=== PATIENT | female | born 1945 | race Caucasian/White ===

== ENCOUNTER 2016-06-12 17:29 | Inpatient (IN) | payer MEDICARE, MEDICAID ==
[~2016-06-12] VITALS: Ht 157.5 cm; Wt 57.3 kg
[2016-06-12] VITALS (10 sets, daily range): BP systolic 101–126; BP diastolic 64–78; PULSE 91–122; RESP 16–30; TEMP 97.8; O2SAT 84–97
[~2016-06-12 17:29] MED LIST: ALBU6.7H INH; BENZ100 PO; DOLU1TAB PO; FURO1TAB60 PO; LAMI150 PO; LANTUS2P SQ; LIPI80TA PO; LISI-515 PO; LOMO2.5T PO; LORA-361 PO; PLAV75TA29 PO; RILP25 PO; SPIR25TA PO; TOPR50TA PO; XARE20TA PO
--- NOTE | 2016-06-12 17:51 | PD ---
HPI Chief Complaint: Respiratory Distress Time Seen by Provider: 17:51 Travel History International Travel<30 days: No Contact w/Intl Traveler<30days: No Traveled to known affect area: No History of Present Illness HPI 71-year-old female with a history of hypertension, hyperlipidemia, diabetes, asthma, CHF, pacemaker with AICD, HIV, DVT presents to the emergency department by EMS for evaluation of shortness of breath for one week. The patient states that the shortness of breath has significantly worsened in the past 3 days. States has had a productive cough with clear sputum for one week. States that she has had subjective fever and chills, has not taken her temperature. States she has chest tightness with her shortness of breath. States that she has been using her albuterol nebulizer which will improve her symptoms for a short period of time. The patient moved here from [place] last month and does not yet have a PCP. They did not bring her medications with them today. Denies any lightheadedness, dizziness, abdominal pain, nausea, vomiting, numbness or tingling, weakness. No other complaints. She is on HAART therapy but does not know her CD4 count. PFSH Past Medical History Asthma: Yes Autoimmune Disease: Yes (HIV) Blood Disorders: No Anxiety: No Depression: No Heart Rhythm Problems: No Cancer: No Cardiovascular Problems: Yes (HTN/WA) High Cholesterol: Yes Chemotherapy: No Chest Pain: No Congestive Heart Failure: Yes COPD: No Diabetes: Yes Diminished Hearing: No Deep Vein Thrombosis: Yes Endocrine: No Genitourinary: No Hypertension: Yes Immune Disorder: No Musculoskeletal: No Neurologic: No Psychiatric: No Reproductive: No Respiratory: Yes (ASTHMA) Radiation Therapy: No Sleep Apnea: No Thyroid Disease: No Menopausal: Yes Past Surgical History AICD: Yes Cardiac Surgery: Yes (PACEMAKER/AICD PLACEMENT) Cholecystectomy: Yes Eye Surgery: Yes Pacemaker: Yes Other Surgery: Yes (pacemaker with ICD) Social History Alcohol Use: No Tobacco Use: No Substance Use: No Allergies-Medications (Allergen,Severity, Reaction): Coded Allergies: No Known Allergies (Unverified , 06/12/16) Reported Meds & Prescriptions Reported Meds & Active Scripts Active Tessalon Perles (Benzonatate) 100 Mg Cap 100 Mg PO TID PRN Lomotil (Diphenoxylate-Atropine) 2.5-0.025 Mg Tab 1 Tab PO Q6H PRN Reported Xarelto (Rivaroxaban) 20 Mg Tab 20 Mg PO DAILY Edurant (Rilpivirine) 25 Mg Tab 25 Mg PO DAILY Toprol XL (Metoprolol Succinate) 50 Mg Tab 50 Mg PO DAILY Lisinopril 20 Mg Tab 20 Mg PO DAILY Epivir (Lamivudine) 150 Mg Tab 150 Mg PO DAILY *Fill this 5 day prescription first and begin taking Epivir 12 hours after the first dose received in the Emergency Department as prescribed.* Lantus Inj (Insulin Glargine) 1,000 Unit/10 Ml Vial 25 Units SQ HS Lasix (Furosemide) 40 Mg Tab 40 Mg PO DAILY Tivicay (Dolutegravir Sodium) 50 Mg Tab 50 Mg PO DAILY Plavix (Clopidogrel Bisulfate) 75 Mg Tab 75 Mg PO DAILY Lipitor (Atorvastatin Calcium) 80 Mg Tab 80 Mg PO HS Proventil Hfa 6.7 GM Inh (Albuterol Sulfate) 90 Mcg/Act Aer 2 Puff INH Q6H PRN Review of Systems Except as stated in HPI: all other systems reviewed are Neg Physical Exam Narrative GENERAL: Well-nourished and well-developed female patient in moderate respiratory distress. SKIN: Warm and dry. HEAD: Normocephalic and atraumatic. EYES: No injection, drainage, or hyphema noted. PERRLA. EOMI. ENT: No nasal drainage noted. Oropharynx is clear. NECK: Supple and the trachea is midline. CARDIOVASCULAR: Regular rate and rhythm. RESPIRATORY: Patient with moderate work of breathing. Decreased breath sounds throughout, mild wheeze. GASTROINTESTINAL: Abdomen is soft, non-tender, and nondistended. MUSCULOSKELETAL: Mild swelling of lower extremities bilaterally. No obvious deformities, cyanosis, or ecchymosis is present throughout the upper and lower extremities. Patient has full range of motion without any signs of neurovascular compromise. NEUROLOGICAL: Awake, alert, and oriented. Normal speech and gait. Cranial nerves are grossly intact. Data Data Last Documented VS Vital Signs Date Time Temp Pulse Resp B/P Pulse Ox O2 Delivery O2 Flow Rate FiO2 06/12/16 18:31 122 30 94 Nasal Cannula 4 06/12/16 18:29 126/78 06/12/16 17:40 97.8 Orders Complete Blood Count With Diff (06/12/16 17:47) Comprehensive Metabolic Panel (06/12/16 17:47) B-Type Natriuretic Peptide (06/12/16 17:47) Act Partial Throm Time (Ptt) (06/12/16 17:47) Prothrombin Time / Inr (Pt) (06/12/16 17:47) Magnesium (Mg) (06/12/16 17:47) Troponin I (06/12/16 17:47) Arterial Blood Gas (Abg) (06/12/16 17:47) Urinalysis - C+S If Indicated (06/12/16 17:47) Influenzae A/B Antigen (06/12/16 17:47) Iv Access Insert/Monitor (06/12/16 17:47) Electrocardiogram (06/12/16 17:47) Ecg Monitoring (06/12/16 17:47) Oximetry (06/12/16 17:47) Oxygen Administration (06/12/16 17:47) Chest, Single Ap (06/12/16 17:47) Sodium Chloride 0.9% Flush (Ns Flush) (06/12/16 18:00) Methylprednisolone So Succ Inj (Solumedr (06/12/16 18:00) Albuterol-Ipratropium Neb (Duoneb Neb) (06/12/16 18:00) Furosemide Inj (Lasix Inj) (06/12/16 18:30) Lactic Acid Sepsis Protocol (06/12/16 18:34) Blood Culture (06/12/16 18:34) Cefepime Inj (Maxipime Inj) (06/12/16 19:00) Levofloxacin 750 Mg Premix Inj (Levaquin (06/12/16 19:00) Vancomycin Inj (Vancomycin Inj) (06/12/16 19:00) Potassium, Serum (K) (06/12/16 22:14) Calcium Gluconate Inj (Calcium Gluconate (06/12/16 19:15) Insulin Human Regular Inj (Novolin R Inj (06/12/16 19:30) Dextrose 50% In Kash (Vial) Inj (D50w (Vi (06/12/16 19:15) Sodium Bicarbonate 8.4% Inj (Sodium Bica (06/12/16 19:15) Sodium Polysty Sulfate Liq (Kayexalate L (06/12/16 19:15) Urinary Catheter Insert/Apply (06/12/16 19:27) Admit Order (Ed Use Only) (06/12/16 19:45) Labs Laboratory Tests Test 06/12/16 06/12/16 18:00 18:07 White Blood Count 15.2 TH/MM3 Red Blood Count 4.72 MIL/MM3 Hemoglobin 13.2 GM/DL Hematocrit 43.5 % Mean Corpuscular Volume 92.1 FL Mean Corpuscular Hemoglobin 28.1 PG Mean Corpuscular Hemoglobin 30.5 % Concent Red Cell Distribution Width 23.2 % Platelet Count 128 TH/MM3 Mean Platelet Volume 10.0 FL Neutrophils (%) (Auto) 88.7 % Lymphocytes (%) (Auto) 5.1 % Monocytes (%) (Auto) 5.8 % Eosinophils (%) (Auto) 0.3 % Basophils (%) (Auto) 0.1 % Neutrophils # (Auto) 13.5 TH/MM3 Lymphocytes # (Auto) 0.8 TH/MM3 Monocytes # (Auto) 0.9 TH/MM3 Eosinophils # (Auto) 0.0 TH/MM3 Basophils # (Auto) 0.0 TH/MM3 CBC Comment AUTO DIFF Differential Comment AUTO DIFF CONFIRMED Platelet Estimate LOW Platelet Morphology Comment NORMAL Ovalocytes 1+ Aren Cells 2+ Prothrombin Time 31.2 SEC Prothromb Time International 2.7 RATIO Ratio Activated Partial 33.5 SEC Thromboplast Time Sodium Level 133 MEQ/L Potassium Level 6.1 MEQ/L Chloride Level 104 MEQ/L Carbon Dioxide Level 18.1 MEQ/L Anion Gap 11 MEQ/L Blood Urea Nitrogen 35 MG/DL Creatinine 1.74 MG/DL Estimat Glomerular Filtration 29 ML/MIN Rate Random Glucose 122 MG/DL Lactic Acid Level 2.8 mmol/L Calcium Level 8.0 MG/DL Magnesium Level 1.8 MG/DL Total Bilirubin 2.5 MG/DL Aspartate Amino Transf 96 U/L (AST/SGOT) Alanine Aminotransferase 76 U/L (ALT/SGPT) Alkaline Phosphatase 165 U/L Troponin I 0.14 NG/ML B-Type Natriuretic Peptide 2763 PG/ML Total Protein 7.4 GM/DL Albumin 2.3 GM/DL Blood Gas Puncture Site RT RADIAL Blood Gas Patient Temperature 98.6 Blood Gas HCO3 17 mmol/L Blood Gas Base Excess -7.7 mmol/L Blood Gas Oxygen Saturation 92 % Arterial Blood pH 7.37 Arterial Blood Partial 29 mmHg Pressure CO2 Arterial Blood Partial 94 mmHG Pressure O2 Arterial Blood Oxygen Content 18.4 Vol % Arterial Blood 2.9 % Carboxyhemoglobin Arterial Blood Methemoglobin 2.1 % Blood Gas Hemoglobin 14.2 G/DL Oxygen Delivery Device NASAL CANNULA Blood Gas Liter Flow 4 L/M MDM Medical Decision Making Medical Screen Exam Complete: Yes Emergency Medical Condition: Yes Differential Diagnosis Pneumonia versus CHF exacerbation versus asthma exacerbation versus ACS Narrative Course 71-year-old female presents to the emergency department for evaluation of shortness of breath, cough and subjective fevers for one week. Patient is afebrile. She is tachycardic with a heart rate of 120 beats for minute. Oxygen saturation is 84% on room air. Patient is placed on nonrebreather mask and oxygen saturation immediately improved to 95%. Abg showed oxygen saturation 94%, patient placed on 4L nasal cannula. Solumedrol 125mg IV is administered and we'll try a DuoNeb treatment here. I reviewed the EMR which shows the patient had an echo performed on her previous admission showing her ejection fraction is 15% with moderate mitral regurgitation. Chest x-ray reveals mild heart failure, patient is given Lasix 40 mg IV. CBC shows an elevated white blood cell count of 15.2, slightly decreased platelets otherwise unremarkable. CMP shows hyperkalemia with a potassium of 6.1, acute renal failure with an elevated creatinine of 1.74, BUN 35, GFR 29. Bicarbonate is low at 18.1. Troponin is elevated at 0.14. BNP is elevated 2763. Lactic acid is elevated at 2.8. The patient's oxygen saturation has remained steady around 92-94% on 4 L of nasal cannula. She no longer has significant work of breathing. On auscultation she is moving air a little better. The patient has a CHF exacerbation with metabolic acidosis from renal failure and hyperkalemia. She is given calcium gluconate 1 g, 10 units of insulin with dextrose, 50 mEq of bicarbonate and 15 gKayexalate to treat her hyperkalemia. I have also treated the patient with cefepime, Cipro and vancomycin to cover her for hospital- acquired pneumonia as she does have a white count, complains of subjective fevers and a productive cough. She'll be admitted to tiller worker service. I discussed the case with my attending physician Dr. Phillips who is aware of the patients history, physical examination findings, and treatment plan. Physician Communication Physician Communication I spoke with Dr. Chilel tiller worker who agrees to admit the patient to her service. I spoke with Dr. Larios perinatal specialist regarding the patient's acute renal failure and hyperkalemia, he did not have any further treatment recommendations. Diagnosis Primary Impression: CHF exacerbation Qualified Code: I50.9 - Acute on chronic congestive heart failure, unspecified congestive heart failure type Additional Impressions: Metabolic acidosis Acute renal failure Qualified Code: N17.9 - Acute renal failure, unspecified acute renal failure type Hyperkalemia Admitting Information Admitting Physician Requests: Admit Alanna Serna Jun 12, 2016 17:51
[2016-06-12] MEDS ORDERED: RESP: ALBUTEROL 2.5 MG/IPRATROPIUM 0.5 MG NEB (SCH) INH ONE (18:00)
[2016-06-12] MEDS ORDERED: SODIUM CHLORIDE 0.9% FLUSH 5 ML FLUSH IVF PRN (18:00)
[2016-06-12] MEDS ORDERED: methylPREDNISolone SOD SUCC 125 MG/2 ML VIAL IVP ONE (18:00)
--- NOTE | 2016-06-12 18:10 | RADRPT ---
EXAM DATE/TIME: 06/12/2016 17:58 [facility] COMPARISON: No previous studies available for comparison. INDICATIONS : Short of breath MEDICAL HISTORY : Cardiovascular disease. SURGICAL HISTORY : Pacemaker. ENCOUNTER: Initial ACUITY: 1 day PAIN SCORE: 0/10 LOCATION: Bilateral chest FINDINGS: Patchy hazy infiltrates with mild to moderate cardiomegaly are noted suggesting mild failure. No dens e infiltrate. Small, bilateral pleural effusions are likely. No pneumothorax seen. CONCLUSION: Mild failure. Tahir Kemp MD on June 12, 2016 at 18:07 Board Certified Radiologist. This report was verified electronically.
[2016-06-12 18:17] LABS: BLOOD GAS BASE EXCESS -7.7 mmol/L (-2-2); BLOOD GAS CARBOXYHEMOGLOBIN 2.9 % (0-4); BLOOD GAS HCO3 17 mmol/L (22-26); BLOOD GAS METHEMOGLOBIN 2.1 % (0-2); BLOOD GAS O2 HGB SATURATION 92 % (90-100); BLOOD GAS OXYGEN CONTENT 18.4 Vol % (12.0-20.0); BLOOD GAS PCO2 29 mmHg (38-42); BLOOD GAS PO2 94 mmHG (61-120); BLOOD GAS TOTAL HGB 14.2 G/DL (12.0-16.0); TEMP CORR TO 98.6
[2016-06-12 18:18] LABS: CRITICAL VALUE NO; DRAW SITE RT RADIAL; LITER FLOW 4 L/M; NUMBER OF ARTERIAL PUNCTURES 1; OXYGEN DEVICE NASAL CANNULA; STAT YES
[2016-06-12 18:18] LABS: AUTOMATED NEUTROPHIL # 13.5 TH/MM3 (1.8-7.7); BASOPHIL % 0.1 % (0.0-2.0); EOSINOPHIL % 0.3 % (0.0-4.0); HEMATOCRIT 43.5 % (35.0-46.0); LYMPH % 5.1 % (9.0-44.0); LYMPHOCYTE # 0.8 TH/MM3 (1.0-4.8); MEAN CELL VOLUME 92.1 FL (80.0-100.0); MEAN CORPUSCULAR HEMOGLOBIN 28.1 PG (27.0-34.0); MEAN CORPUSCULAR HGB CONC 30.5 % (32.0-36.0); MONO % 5.8 % (0.0-8.0); NEUT % 88.7 % (16.0-70.0); PLATELET COUNT 128 TH/MM3 (150-450); RED BLOOD COUNT 4.72 MIL/MM3 (4.00-5.30); RED CELL DISTRIBUTION WIDTH 23.2 % (11.6-17.2); WHITE BLOOD COUNT 15.2 TH/MM3 (4.0-11.0)
[2016-06-12 18:28] LABS: APTT (PATIENT) 33.5 SEC (24.3-30.1); INTERNATIONAL NORMALIZED RATIO 2.7 RATIO; PROTHROMBIN TIME - PATIENT 31.2 SEC (9.8-11.6)
[2016-06-12 18:30] LABS: HEMO FLAGS AUTO DIFF
[2016-06-12] MEDS ORDERED: FUROSEMIDE 40 MG/4 ML VIAL IV PUSH ONE (18:30)
[2016-06-12 18:56] LABS: ALKALINE PHOSPHATASE 165 U/L (45-117); ALT (GPT) 76 U/L (10-53); ANION GAP 11 MEQ/L (5-15); AST (GOT) 96 U/L (15-37); BICARBONATE 18.1 MEQ/L (21.0-32.0); BLOOD UREA NITROGEN 35 MG/DL (7-18); CHLORIDE 104 MEQ/L (98-107); GLOMERULAR FILTRATION RATE 29 ML/MIN (>89); MAGNESIUM 1.8 MG/DL (1.5-2.5); POTASSIUM 6.1 MEQ/L (3.5-5.1); SODIUM (NA) 133 MEQ/L (136-145); TOTAL BILIRUBIN ADULT 2.5 MG/DL (0.2-1.0)
[2016-06-12] MEDS ORDERED: VANCOMYCIN INJ 1,000 MG in SODIUM CHLOR 0.9% 250 ML INJ 250 ML IV ONE (19:00)
[2016-06-12] MEDS ORDERED: CEFEPIME INJ 2,000 MG in SODIUM CHLORIDE 0.9% INJ 100 ML IV ONE (19:00)
[2016-06-12] MEDS ORDERED: LEVOFLOXACIN 750 MG PREMIX INJ 150 ML IV ONE (19:00)
[2016-06-12 19:07] LABS: BURR CELLS 2+ (NORMAL); OVALOCYTES 1+ (NORMAL); PLATELET ESTIMATE SMEAR LOW (NORMAL); PLATELET MORPHOLOGY NORMAL (NORMAL); SCAN/DIFF AUTO DIFF CONFIRMED
[2016-06-12] MEDS ORDERED: DEXTROSE 50% IN WATER 50 ML VIAL(D50) IV PUSH ONE (19:15)
[2016-06-12] MEDS ORDERED: CALCIUM GLUCONATE 10% 1 GM/10 ML VIAL SLOW IVP ONE (19:15)
[2016-06-12] MEDS ORDERED: SODIUM BICARBONATE 8.4% SOLN 50 MEQ/50 ML VIAL SLOW IVP ONE (19:15)
[2016-06-12] MEDS ORDERED: SODIUM POLYSTYRENE SULFONATE SUSP 15 GM/60 ML CUP PO ONE (19:15)
[2016-06-12] MEDS ORDERED: INSULIN HUMAN REGULAR 1,000 UNITS/10 ML VIAL IV PUSH ONE (19:30)
[2016-06-12] MEDS ORDERED: METOPROLOL TARTRATE 5 MG/5 ML VIAL IV PUSH ONE (20:15)
[2016-06-12] MEDS ORDERED: ETOMIDATE 20 MG/10 ML VIAL ONE (20:16)
[2016-06-12] MEDS ORDERED: ROCURONIUM INJ 50 MG/5 ML VIAL ONE (20:16)
[2016-06-12] MEDS ORDERED: ETOMIDATE 20 MG/10 ML VIAL IV PUSH ONE (20:20)
[2016-06-12] MEDS ORDERED: ROCURONIUM INJ 50 MG/5 ML VIAL IV ONE (20:20)
[2016-06-12] MEDS ORDERED: fentaNYL DRIP 250 ML ONE (21:20)
--- NOTE | 2016-06-12 21:22 | PD.PROCEDR ---
Procedure Note Procedure Endotracheal Intubation Diagnosis: Acute hypoxic respiratory failure Indications: Hypoxia Consent: Obtained by patient and family Anesthesia: Etomidate 14 mg, rocuronium 50 mg Description of the Procedure: The patient was positioned in the sniffing position. Pre-oxygenation was performed using a 100% O2 amplitude. Anesthesia was induced via rapid sequence. A glidescope #3 was used for laryngoscopy and a Grade 1 view was obtained. A 8.0 cuffed endotracheal tube was inserted atraumatically through the vocal cords. Confirmation of correct endotracheal tube placement was made by equal and bilateral breath sounds and colorimetric CO2 detection. The endotracheal tube was secured at 20 cm at the lip. There were no immediate complications noted. The patient remained hemodynamically stable throughout the procedure. A chest x-ray has been ordered. I personally performed the procedure. Flor Chilel MD Jun 12, 2016 21:22
--- NOTE | 2016-06-12 21:22 | RADRPT ---
EXAM DATE/TIME: 06/12/2016 21:08 [facility] COMPARISON: CHEST SINGLE AP, June 12, 2016, 17:58. INDICATIONS : ET Tube Placement. MEDICAL HISTORY : Hypercholesterolemia. Congestive heart failure. Deep venous thrombosis. Hypertension. Diabetes. HIV. SURGICAL HISTORY : Pacemaker.Cholecystectomy. ENCOUNTER: Initial ACUITY: 1 day PAIN SCORE: Non-responsive. LOCATION: Bilateral chest FINDINGS: Patchy infiltrates have become more apparent in both lungs, primarily mid and upper lungs. No large e ffusion seen. No pneumothorax. Mild cardiomegaly again noted. Patient now intubated. Endotracheal tube tip is about 3 cm above the julian. Nasogastric tube placed as well, coiled in the stomach. CONCLUSION: Interim intubation and nasogastric tube placement, appropriately positioned as above. Patchy airspace opacities are again noted, slightly worse. Tahir Kemp MD on June 12, 2016 at 21:19 Board Certified Radiologist. This report was verified electronically.
[2016-06-12 21:26] LABS: LACTIC ACID GHOST NOT REPORTABLE
[2016-06-12] MEDS ORDERED: MAGNESIUM HYDROXIDE SUSP 30 ML CUP PO PRN (21:30)
[2016-06-12] MEDS ORDERED: HEPARIN SODIUM - SQ 10,000 UNITS/ML VIAL SQ SCH (21:30)
[2016-06-12] MEDS ORDERED: SODIUM CHLORIDE 0.9% FLUSH 5 ML FLUSH IV FLUSH PRN (21:30)
[2016-06-12] MEDS ORDERED: CHLORHEXIDINE GLUCONATE 2 % 1 PACK (2 CLOTHS) TOP PRN (21:30)
[2016-06-12] MEDS ORDERED: MISCELLANEOUS NURSING INFORMATION XX SCH (21:30)
[2016-06-12] MEDS: DOCUSATE SODIUM 100 MG/10 ML UDC G-TUBE SCH (21:30)
[2016-06-12] MEDS ORDERED: RESP: ALBUTEROL 2.5 MG/IPRATROPIUM 0.5 MG NEB (PRN) INH (21:30)
[2016-06-12] MEDS ORDERED: BISACODYL 10 MG SUPP RECTAL PRN (21:30)
[2016-06-12] MEDS ORDERED: ONDANSETRON HCL 4 MG/2 ML VIAL IV PRN (21:30)
[2016-06-12 21:48] LABS: BLOOD GAS BASE EXCESS -8.5 mmol/L (-2-2); BLOOD GAS CARBOXYHEMOGLOBIN 2.2 % (0-4); BLOOD GAS HCO3 17 mmol/L (22-26); BLOOD GAS METHEMOGLOBIN 1.4 % (0-2); BLOOD GAS O2 HGB SATURATION 95 % (90-100); BLOOD GAS OXYGEN CONTENT 19.5 Vol % (12.0-20.0); BLOOD GAS PCO2 38 mmHg (38-42); BLOOD GAS PO2 121 mmHG (61-120); BLOOD GAS TOTAL HGB 14.6 G/DL (12.0-16.0); TEMP CORR TO 98.6
[2016-06-12 21:49] LABS: CRITICAL VALUE YES; DRAW SITE RT RADIAL; FIO2 50 %; NUMBER OF ARTERIAL PUNCTURES 1; OXYGEN DEVICE VENTILATOR; STAT YES; ULNAR PULSE PRESENT; VENT SETTINGS AC 500 RR14 PEEP 5
[2016-06-12] MEDS: RESP: ALBUTEROL 2.5 MG/IPRATROPIUM 0.5 MG NEB (SCH) INH (22:50)
[2016-06-12] MEDS ORDERED: MIDAZOLAM HCL 2 MG/2 ML VIAL IV ONE (23:00)
[2016-06-12] MEDS ORDERED: DIATRIZOATE MEGLUM/DIATRIZOATE SOD 9 ML CUP PO ONE (23:00)
[2016-06-12] MEDS: fentaNYL DRIP 250 ML IV SCH (23:21)
[2016-06-12 23:34] LABS: BACTERIA, URINE MANY /hpf; BLOOD, URINE SMALL (NEG); COMMENT (UR) CULTURE INDICATED; CULTURE IF INDICATED CULTURE INDICATED; GLUCOSE,URINE NEG (NEG); KETONE, URINE NEG (NEG); NITRITE,URINE NEG (NEG); PH, URINE 5.5 (5.0-8.5); SQUAMOUS EPITHELIAL CELL URINE <1 /hpf (0-5); URINE COLOR DARK-YELLOW (YELLW/STRAW)
[2016-06-12 23:57] LABS: POTASSIUM 4.5 MEQ/L (3.5-5.1)
[2016-06-13] VITALS (19 sets, daily range): BP systolic 91–115; BP diastolic 50–71; PULSE 84–112; RESP 16–18; TEMP 97.2–99.2; O2SAT 95–100
--- NOTE | 2016-06-13 00:02 | HHI.HP ---
HPI Service Critical Care Medicine Primary Care Physician No Primary Care Physician Admission Diagnosis CHF Exacerbation, ARF, Metabolic Acidosis, Hyperkalemia Diagnosis: Travel History International Travel<30 Days: No Contact w/Intl Traveler <30 Da: No Traveled to Known Affected Are: No History of Present Illness 71-year-old female with a history of hypertension, hyperlipidemia, diabetes, asthma, CHF, pacemaker with AICD, HIV, presented to the ED with progressive SOB. The patient is Occitan-speaking only and daughter is in the room for interpretation. The patient complained of a productive cough for approximately 1 week. The patient complained of chest tightness in conjunction with her shortness of breath. Note the patient was recently hospitalized 05/11/16, for similar presentation of CHF exacerbation, and abdominal pain. At that time the patient had an echo performed which revealed an ejection fraction of 15%. The patient had complained of loose yellow stools, and abdominal pain. Critical care medicine was consulted for treatment and management. Upon entering the ED, the patient was noted to be severely dyspneic, currently on 4 L nasal cannula, the patient was changed to a facemask at 10 L/m, the patient continued to have O2 desaturation, O2 sats in the 80s. I discussed with the patient impending need of required intubation, for acute respiratory distress. The patient stated she wanted to be intubated. I discussed with the daughter the risk and benefits ,the patient's respiratory status and the need for intubation. The patient was emergently intubated in the ED without difficulty. The patient was then placed on mechanical ventilation at 100% and then subsequently weaned to FiO2 of 50%. History PFSH Past Medical History Asthma: Yes Autoimmune Disease: Yes (HIV) Blood Disorders: No Anxiety: No Depression: No Heart Rhythm Problems: No Cancer: No Cardiovascular Problems: Yes (HTN/AZ) High Cholesterol: Yes Chemotherapy: No Chest Pain: No Congestive Heart Failure: Yes COPD: No Diabetes: Yes Diminished Hearing: No Deep Vein Thrombosis: Yes Endocrine: No Genitourinary: No Hypertension: Yes Immune Disorder: No Musculoskeletal: No Neurologic: No Psychiatric: No Reproductive: No Respiratory: Yes (ASTHMA) Radiation Therapy: No Sleep Apnea: No Thyroid Disease: No Menopausal: Yes Past Surgical History AICD: Yes Cardiac Surgery: Yes (PACEMAKER/AICD PLACEMENT) Cholecystectomy: Yes Eye Surgery: Yes Pacemaker: Yes Other Surgery: Yes (pacemaker with ICD) Social History Alcohol Use: No Tobacco Use: No Substance Use: No Allergies-Medications Allergies-Medications (Allergen,Severity, Reaction): Coded Allergies: No Known Allergies (Unverified , 06/12/16) Reported Meds & Prescriptions Reported Meds & Active Scripts Active Tessalon Perles (Benzonatate) 100 Mg Cap 100 Mg PO TID PRN Lomotil (Diphenoxylate-Atropine) 2.5-0.025 Mg Tab 1 Tab PO Q6H PRN Reported Xarelto (Rivaroxaban) 20 Mg Tab 20 Mg PO DAILY Edurant (Rilpivirine) 25 Mg Tab 25 Mg PO DAILY Toprol XL (Metoprolol Succinate) 50 Mg Tab 50 Mg PO DAILY Lisinopril 20 Mg Tab 20 Mg PO DAILY Epivir (Lamivudine) 150 Mg Tab 150 Mg PO DAILY *Fill this 5 day prescription first and begin taking Epivir 12 hours after the first dose received in the Emergency Department as prescribed.* Lantus Inj (Insulin Glargine) 1,000 Unit/10 Ml Vial 25 Units SQ HS Lasix (Furosemide) 40 Mg Tab 40 Mg PO DAILY Tivicay (Dolutegravir Sodium) 50 Mg Tab 50 Mg PO DAILY Plavix (Clopidogrel Bisulfate) 75 Mg Tab 75 Mg PO DAILY Lipitor (Atorvastatin Calcium) 80 Mg Tab 80 Mg PO HS Proventil Hfa 6.7 GM Inh (Albuterol Sulfate) 90 Mcg/Act Aer 2 Puff INH Q6H PRN ROS Review of Systems Except as stated in HPI: all other systems reviewed are Neg Past Family Social History Allergies: Coded Allergies: No Known Allergies (Unverified , 06/12/16) Physical Exam Vital Signs Vital Signs Date Time Temp Pulse Resp B/P Pulse Ox O2 Delivery O2 Flow Rate FiO2 06/12/16 23:55 91 16 101/64 96 Ventilator 50 06/12/16 23:51 91 18 102/68 96 Room Air 06/12/16 23:41 91 16 101/64 95 Ventilator 50 06/12/16 23:35 35 06/12/16 23:29 94 18 108/72 94 Ventilator 35 06/12/16 21:30 50 06/12/16 18:31 122 30 94 Nasal Cannula 4 06/12/16 18:29 122 30 126/78 95 Nasal Cannula 4 06/12/16 18:05 95 Nasal Cannula 4 06/12/16 17:41 97 Non-Rebreather 15 06/12/16 17:40 84 Room Air 06/12/16 17:40 97.8 122 28 117/76 84 Room Air 06/12/16 17:38 97.8 122 28 117/76 84 Physical Exam GENERAL: Critically ill-appearing female in respiratory extremis, respiratory rate 50s SKIN: Warm and dry. HEAD: Atraumatic. Normocephalic. EYES: Pupils equal and round. No scleral icterus. No injection or drainage. ENT: No nasal bleeding or discharge. Mucous membranes pink and moist. NECK: Trachea midline. No JVD. CARDIOVASCULAR: Normal rate, regular rhythm. RESPIRATORY: Mechanical ventilation Clear to auscultation. Breath sounds equal bilaterally. GASTROINTESTINAL: Abdomen soft, obese non-tender, nondistended. Noted guarding upon palpation, right quadrant. No rebound tenderness. Well-healed old abdominal scar, right side of abdomen. MUSCULOSKELETAL: Extremities without clubbing, cyanosis, or edema. No obvious deformities. NEUROLOGICAL: Awake and alert. RASS 0. No gross focal/sensory deficits. Follows commands in all 4 extremities. Laboratory Laboratory Tests Test 06/12/16 06/12/16 06/12/16 06/12/16 18:00 18:07 19:55 21:37 White Blood Count 15.2 Red Blood Count 4.72 Hemoglobin 13.2 Hematocrit 43.5 Mean Corpuscular Volume 92.1 Mean Corpuscular Hemoglobin 28.1 Mean Corpuscular Hemoglobin 30.5 Concent Red Cell Distribution Width 23.2 Platelet Count 128 Mean Platelet Volume 10.0 Neutrophils (%) (Auto) 88.7 Lymphocytes (%) (Auto) 5.1 Monocytes (%) (Auto) 5.8 Eosinophils (%) (Auto) 0.3 Basophils (%) (Auto) 0.1 Neutrophils # (Auto) 13.5 Lymphocytes # (Auto) 0.8 Monocytes # (Auto) 0.9 Eosinophils # (Auto) 0.0 Basophils # (Auto) 0.0 CBC Comment AUTO DIFF Differential Comment AUTO DIFF CONFIRMED Platelet Estimate LOW Platelet Morphology Comment NORMAL Ovalocytes 1+ Aren Cells 2+ Prothrombin Time 31.2 Prothromb Time International 2.7 Ratio Activated Partial 33.5 Thromboplast Time Sodium Level 133 Potassium Level 6.1 Chloride Level 104 Carbon Dioxide Level 18.1 Anion Gap 11 Blood Urea Nitrogen 35 Creatinine 1.74 Estimat Glomerular Filtration 29 Rate Random Glucose 122 Lactic Acid Level 2.8 Calcium Level 8.0 Magnesium Level 1.8 Total Bilirubin 2.5 Aspartate Amino Transf 96 (AST/SGOT) Alanine Aminotransferase 76 (ALT/SGPT) Alkaline Phosphatase 165 Troponin I 0.14 B-Type Natriuretic Peptide 2763 Total Protein 7.4 Albumin 2.3 Blood Gas Puncture Site RT RADIAL RT RADIAL Blood Gas Patient Temperature 98.6 98.6 Blood Gas HCO3 17 17 Blood Gas Base Excess -7.7 -8.5 Blood Gas Oxygen Saturation 92 95 Arterial Blood pH 7.37 7.28 Arterial Blood Partial 29 38 Pressure CO2 Arterial Blood Partial 94 121 Pressure O2 Arterial Blood Oxygen Content 18.4 19.5 Arterial Blood 2.9 2.2 Carboxyhemoglobin Arterial Blood Methemoglobin 2.1 1.4 Blood Gas Hemoglobin 14.2 14.6 Oxygen Delivery Device NASAL CANNULA VENTILATOR Blood Gas Liter Flow 4 Urine Color DARK-YELLOW Urine Turbidity HAZY Urine pH 5.5 Urine Specific [place] 1.025 Urine Protein 100 Urine Glucose (UA) NEG Urine Ketones NEG Urine Occult Blood SMALL Urine Nitrite NEG Urine Bilirubin NEG Urine Urobilinogen 4.0 Urine Leukocyte Esterase TRACE Urine RBC 1 Urine WBC 9 Urine Squamous Epithelial <1 Cells Urine Bacteria MANY Microscopic Urinalysis Comment CULTURE INDICATED Blood Gas Ventilator Setting AC 500 RR14 PEEP 5 Blood Gas Inspired Oxygen 50 Test 06/12/16 23:11 Potassium Level 4.5 Lactic Acid Level 4.8 Ammonia 86 Troponin I 0.14 Date/Time Procedure Status Source Growth 06/12/16 19:55 Urine Culture Received Urine Catheterized Urine Pending 06/12/16 19:55 Cancelled Urine Clean Catch 06/12/16 18:10 Aerobic Blood Culture Received Blood Peripheral Pending 06/12/16 18:10 Anaerobic Blood Culture Received Blood Peripheral Pending 06/12/16 18:00 Influenza Types A,B Antigen (KYLE) - Final Complete Nasal Washing NEGATIVE FOR FLU A AND B ANTIGEN.... Result Diagram: 06/12/16 1800 06/12/16 2311 Septic Shock Reassessment Heart: Regular rate and rhythm Lungs: Diminished Skin: Warm Peripheral Pulses: Bounding Right Radial Bounding Left Radial Bounding Right Dorsalis Pedis Bounding Left Dorsalis Pedis Capillary Refill: Brisk Assessment and Plan Assessment and Plan This is a critically ill 71-year-old female that presents with CHF exacerbation requiring emergent intubation, hyperkalemia, probable sepsis from an unknown source and abdominal pain decreasing urine output .Her ejection fraction is 15% , currently she is tachycardic. The patient's prognosis is guarded. Neurologic: Pain-abdominal -Patient is intubated and sedated currently on and fentanyl infusion -GCS 3T, maintain RASS -2 Respiratory: Acute hypoxic respiratory failure Asthma -Mechanical ventilation-PRVC ,FiO2.50, continue to wean -Scheduled bronchodilators every 4 hours, due to hours when necessary -Follow-up repeat chest x-ray -Ventilator bundle -Sedation holiday -Maintain head of the bed 30 Cardiovascular: CHF exacerbation Cardiomyopathy Pacer/AICD -ECHO 05/11/16- EF 15%, No RWMA,MV moderate regurgitation, TV moderate regurgitation, PASP 62 -Patient currently normotensive -Obtain troponins, Renal: Acute on chronic kidney injury -Patient received in ED sodium bicarbonate, calcium gluconate, 40 mg of Lasix Follow-up repeat BMP -Follow neurology consulted Dr. Larios follow up recommendations -Insert [place], monitor hourly urine output -- Strict I/Os FEN/GI: Hyperkalemia Hyponatremia Abdominal pain Hyperlipidemia -Maintain NPO status -Insert NG tube to low intermittent wall suction -CT abdomen and pelvis ordered follow-up results -Diarrhea, loose yellow stools last 2 weeks -Obtain amylase, lipase studies, lipid panel -Sodium 133, monitor -Patient home med atorvastatin -Initial potassium 6.1-C calcium gluconate, D50 with insulin, sodium bicarbonate Heme/ID: Sepsis HIV on HAART therapy -Lactate 4.8, monitor serial lactate -Monitor CBC .WBC count 15 -Begin empiric antibiotics-cefepime and vancomycin -ID consult appreciate recommendation -Obtain hepatic function panel Endocrine: Diabetes mellitus -Glucose monitoring per ICU protocol -- SSI Prophylaxis: GI Prophylaxis Protonix DVT Prophylaxis -- SCDs Hold pharmacological prophylaxis patient on Xarelto, and Plavix per home records. Elevated INR2.7 Lines: Peripheral IV Dispo: This patient remains critically ill with one or more organ systems which are or may become a threat to life. I have spent in excess of 60 minutes discontinuously in the care and management of this patient. This time is exclusive of procedures, and includes, but is not limited to, evaluation of the patient, review of the medical record, discussions with family, consultants, nursing staff, or respiratory therapy, and documentation in the medical record. Code Status Full Discussed Condition With Discussed with daughters, 1 telephonically in [place] and 1 at the bedside. Flor Chilel MD Jun 13, 2016 00:02
[2016-06-13] MEDS: RESP: ALBUTEROL 2.5 MG/IPRATROPIUM 0.5 MG NEB (SCH) INH ×4 (03:21→20:45)
[2016-06-13] MEDS: CHLORHEXIDINE GLUCONATE 2 % 1 PACK (2 CLOTHS) TOP SCH (04:00)
[2016-06-13 04:47] LABS: BASOPHIL % 0.1 % (0.0-2.0); LYMPH % 1.6 % (9.0-44.0); LYMPHOCYTE # 0.2 TH/MM3 (1.0-4.8); MEAN CELL VOLUME 90.2 FL (80.0-100.0); MEAN CORPUSCULAR HEMOGLOBIN 28.7 PG (27.0-34.0); MEAN CORPUSCULAR HGB CONC 31.9 % (32.0-36.0); MONO % 2.8 % (0.0-8.0); NEUT % 95.5 % (16.0-70.0); PLATELET COUNT 77 TH/MM3 (150-450); RED BLOOD COUNT 4.54 MIL/MM3 (4.00-5.30); WHITE BLOOD COUNT 11.5 TH/MM3 (4.0-11.0)
[2016-06-13 04:51] LABS: HEMO FLAGS AUTO DIFF
[2016-06-13 04:57] LABS: APTT (PATIENT) 33.9 SEC (24.3-30.1); PROTHROMBIN TIME - PATIENT 23.2 SEC (9.8-11.6)
[2016-06-13 05:15] LABS: BICARBONATE 19.5 MEQ/L (21.0-32.0); MAGNESIUM 1.6 MG/DL (1.5-2.5); POTASSIUM 4.3 MEQ/L (3.5-5.1)
[2016-06-13] MEDS ORDERED: Vancomycin Consult Pharmacy 1 EA OTHER SCH (05:15)
[2016-06-13 05:19] LABS: INDIRECT BILIRUBIN 0.8 MG/DL (0.0-0.8); TOTAL BILIRUBIN ADULT 2.7 MG/DL (0.2-1.0)
[2016-06-13 05:37] LABS: AMYLASE 28 U/L (25-115)
[2016-06-13 05:40] LABS: HDL CHOLESTEROL 13.4 MG/DL (40.0-60.0)
--- NOTE | 2016-06-13 05:45 | RADRPT ---
EXAM DATE/TIME: 06/13/2016 04:47 [facility] COMPARISON: CHEST SINGLE AP, June 12, 2016, 21:08. INDICATIONS : Abdominal pain. ORAL CONTRAST: Prescribed oral contrast ingested. RADIATION DOSE: 8.30 CTDIvol (mGy) MEDICAL HISTORY : Non-responsive. SURGICAL HISTORY : Non-responsive. ENCOUNTER: Initial ACUITY: 1 day PAIN SCALE: Non-responsive LOCATION: abdomen TECHNIQUE: Volumetric scanning of the abdomen and pelvis was performed. Using automated exposure control and ad justment of the mA and/or kV according to patient size, radiation dose was kept as low as reasonably achievable to obtain optimal diagnostic quality images. FINDINGS: There is edema of the subcutaneous tissues, induration of the abdominal fat, ascites, and small bilat eral pleural effusions, characteristic of generalized anasarca. There is also consolidation in the d ependent lungs bilaterally adjacent to the pleural effusions, left greater than right.. Gastric tube is in place. Oral contrast passes through to the right colon. No dilated loops of small or large b owel. Prominent vascular calcifications. Abdominal aorta is normal in dimension. No lesions seen i n the liver, spleen, pancreas or kidneys for noncontrast technique. No evidence of hydronephrosis. The osseous structures are grossly intact. CONCLUSION: Generalized anasarca. Consolidation in the dependent lower lungs. Marco Patel MD on June 13, 2016 at 5:32 Board Certified Radiologist. This report was verified electronically.
[2016-06-13 05:48] LABS: LDL CHOLESTEROL 23 MG/DL (0-99)
[2016-06-13 06:38] LABS: INTERNATIONAL NORMALIZED RATIO 1.9 RATIO; PROTHROMBIN TIME - PATIENT 21.8 SEC (9.8-11.6)
[2016-06-13] MEDS ORDERED: FUROSEMIDE 100 MG/10 ML VIAL IV PUSH ONE ×2 (07:30→17:15)
[2016-06-13 07:32] LABS: PLATELET ESTIMATE SMEAR LOW (NORMAL); PLATELET MORPHOLOGY NORMAL (NORMAL); SCAN/DIFF AUTO DIFF CONFIRMED
[2016-06-13 07:33] LABS: BURR CELLS 1+ (NORMAL)
[2016-06-13] MEDS ORDERED: CHLORHEXIDINE 0.12% (ORAL KIT) 15 ML CUP MT SCH (08:00)
[2016-06-13] MEDS: CHLORHEXIDINE 0.12% (ORAL KIT) 15 ML CUP MT SCH ×2 (08:00→20:40)
[2016-06-13] MEDS: SODIUM CHLORIDE 0.9% FLUSH 5 ML FLUSH IV FLUSH SCH ×2 (08:01→20:40)
[2016-06-13] MEDS: PANTOPRAZOLE SODIUM 40 MG VIAL IV SCH (08:01)
[2016-06-13] MEDS: MAGNESIUM SULFATE 1 GM PREMIX 100 ML IV SCH ×2 (08:01→08:58)
[2016-06-13] MEDS: DOCUSATE SODIUM 100 MG/10 ML UDC G-TUBE SCH ×2 (08:58→20:39)
[2016-06-13] MEDS: DEXMEDETOMIDINE 200 MCG/50 ML NS IV SCH (09:57)
[2016-06-13] MEDS: fentaNYL DRIP 250 ML IV SCH ×2 (09:57→20:39)
[2016-06-13] MEDS: CEFEPIME INJ 2,000 MG in SODIUM CHLORIDE 0.9% INJ 100 ML IV SCH ×2 (09:57→20:39)
[2016-06-13 12:16] LABS: PROTHROMBIN TIME - PATIENT 22.3 SEC (9.8-11.6)
[2016-06-13 14:23] LABS: INTERNATIONAL NORMALIZED RATIO 1.8 RATIO; PROTHROMBIN TIME - PATIENT 20.7 SEC (9.8-11.6)
--- NOTE | 2016-06-13 15:07 | EKG ---
Date Performed: 06/12/2016 Time Performed: 18:18:40 PTAGE: 71 years EKG: SINUS TACHYCARDIA WITH OCCASIONAL SUPRAVENTRICULAR PREMATURE COMPLEXES MARKED LEFT AXIS DEV IATION POSSIBLE ANTERIOR MYOCARDIAL INFARCTION ABNORMAL ECG PREVIOUS TRACING : 05/11/2016 21.21 Compared to previous tracing, the patient is now tachycardi c. DOCTOR: Cony Lazaro Interpretating Date/Time 06/13/2016 15:07:33
--- NOTE | 2016-06-13 17:48 | PD.CONS ---
HPI Service Nephrology Consult Requested By Dr Chilel Reason for Consult RONNIE Primary Care Physician No Primary Care Physician History of Present Illness The patient is a 71 yo female who presented to the ED yesterday with complaints of SOB. She was admitted for similar complaint this past May. She apparently just moved here from [place] and has not been able to establish with local physicians. Daughter is in room and provides all information as the patient is intubated. Apparently, prior to her move here she was advised of potential CKD. During her admission in May, her SCr fluctuated but was 1.14 on 05/11 and 1.54 on 05/24. She was at 1.74 at arrival and improved slightly to 1.54 at time of consult. She is a longstanding hypertensive and diabetic both of 40+ years. She does have complications with her diabetes including retinopathy and neuropathy. The daughter endorses that she has been told of heavy proteinuria in the past. She is also HIV positive and is actively being treated. Review of her May admission shows an echocardiogram that shows severe cardiomyopathy with an EF of 15%. She does have an AICD that that daughter says was placed about 1.5 years ago. (Antonella Marcial) Review of Systems ROS Limitations: Intubated (Antonella Marcial) Past Family Social History Allergies: Coded Allergies: No Known Allergies (Unverified , 06/12/16) Past Medical History DM Diabetic retinopathy Diabetic neuropathy HIV positive HTN Severe CHF with EF of 15% s/p AICD placement Past Surgical History AICD placement Reported Medications Reported Meds & Active Scripts Active Tessalon Perles (Benzonatate) 100 Mg Cap 100 Mg PO TID PRN Lomotil (Diphenoxylate-Atropine) 2.5-0.025 Mg Tab 1 Tab PO Q6H PRN Reported Xarelto (Rivaroxaban) 20 Mg Tab 20 Mg PO DAILY Edurant (Rilpivirine) 25 Mg Tab 25 Mg PO DAILY Toprol XL (Metoprolol Succinate) 50 Mg Tab 50 Mg PO DAILY Lisinopril 20 Mg Tab 20 Mg PO DAILY Epivir (Lamivudine) 150 Mg Tab 150 Mg PO DAILY *Fill this 5 day prescription first and begin taking Epivir 12 hours after the first dose received in the Emergency Department as prescribed.* Lantus Inj (Insulin Glargine) 1,000 Unit/10 Ml Vial 25 Units SQ HS Lasix (Furosemide) 40 Mg Tab 40 Mg PO DAILY Tivicay (Dolutegravir Sodium) 50 Mg Tab 50 Mg PO DAILY Plavix (Clopidogrel Bisulfate) 75 Mg Tab 75 Mg PO DAILY Lipitor (Atorvastatin Calcium) 80 Mg Tab 80 Mg PO HS Proventil Hfa 6.7 GM Inh (Albuterol Sulfate) 90 Mcg/Act Aer 2 Puff INH Q6H PRN Active Ordered Medications Current Medications Medications (Trade) Dose Ordered Sig/Quynh Route Start Time Stop Time Status Last Admin (fentaNYL DRIP) 250 ml @ 0 mls/hr TITRATE IV 06/12/16 21:30 06/13/16 09:57 (NS Flush) 2 ml UNSCH PRN IV FLUSH 06/12/16 21:30 (NS Flush) 2 ml BID IV FLUSH 06/13/16 09:00 06/13/16 08:01 (Tylenol) 650 mg Q6H PRN PO 06/12/16 21:30 (Protonix Inj) 40 mg DAILY IV 06/13/16 09:00 06/13/16 08:01 (Zofran Inj) 4 mg Q6H PRN IV 06/12/16 21:30 (Colace Liq) 100 mg Q12H G-TUBE 06/12/16 21:30 06/13/16 08:58 (Dulcolax Supp) 10 mg DAILY PRN RECTAL 06/12/16 21:30 (Milk Of Magnesia Liq) 30 ml Q12H PRN PO 06/12/16 21:30 Miscellaneous Information 1 Q361D XX 06/12/16 21:30 (Chlorhexidine 2% Cloth) 3 pack Taper DAILY@04 TOP 06/13/16 04:00 06/09/17 03:59 06/13/16 04:00 Chlorhexidine Gluconate 3 pack 3 pack UNSCH PRN TOP 06/12/16 21:30 Cefepime HCl 2000 mg/Sodium Chloride 100 ml @ 200 mls/hr Q12H IV 06/13/16 10:00 06/13/16 09:57 Pharmacy Profile Note 0 ml @ 0 mls/hr UNSCH OTHER 06/13/16 05:15 (Vancomycin Inj/ NS 250 ml Inj) 250 ml @ 250 mls/hr HS IV 06/13/16 21:00 Miscellaneous Information SPECIFIC LAB TO BE DEMARIO... ONCE ONCE XX 06/15/16 20:45 06/15/16 20:46 Chlorhexidine Gluconate 15 ml 15 ml BID@08,20 MT 06/13/16 08:00 (Precedex Inj) 50 ml @ 0 mls/hr TITRATE IV 06/13/16 09:30 06/13/16 09:57 Family History Negative for renal issues Social History Lives locally with daughter. Just moved from [place] not too long ago where she was living independently. Denies smoking Denies EtOH (Antonella Marcial) Physical Exam Vital Signs Vital Signs Date Time Temp Pulse Resp B/P Pulse Ox O2 Delivery O2 Flow Rate FiO2 06/13/16 15:38 96 40 06/13/16 14:00 88 06/13/16 12:00 98.1 84 16 91/50 95 06/13/16 12:00 40 06/13/16 12:00 84 06/13/16 10:00 91 06/13/16 08:05 100 40 06/13/16 08:00 86 06/13/16 08:00 97.2 86 16 102/58 99 06/13/16 08:00 50 06/13/16 06:00 84 06/13/16 04:00 97.9 84 16 99/56 100 06/13/16 04:00 50 06/13/16 04:00 84 06/13/16 03:32 100 50 06/13/16 02:00 85 06/13/16 01:40 98.5 87 16 92/52 100 06/13/16 00:29 98 50 06/13/16 00:11 93 18 107/71 97 Ventilator 50 06/12/16 23:55 91 16 101/64 96 Ventilator 50 06/12/16 23:51 91 18 102/68 96 Room Air 06/12/16 23:41 91 16 101/64 95 Ventilator 50 06/12/16 23:35 35 06/12/16 23:29 94 18 108/72 94 Ventilator 35 06/12/16 23:25 96 50 06/12/16 21:30 50 06/12/16 20:30 96 50 06/12/16 18:31 122 30 94 Nasal Cannula 4 06/12/16 18:29 122 30 126/78 95 Nasal Cannula 4 06/12/16 18:05 95 Nasal Cannula 4 06/12/16 17:41 97 Non-Rebreather 15.00 06/12/16 17:41 97 Non-Rebreather 15 06/12/16 17:40 84 Room Air 06/12/16 17:40 97.8 122 28 117/76 84 Room Air 06/12/16 17:38 97.8 122 28 117/76 84 Physical Exam GENERAL: Intubated and sedated SKIN: Warm and dry. HEAD: Atraumatic. Normocephalic. EYES: Pupils equal and round. No scleral icterus. No injection or drainage. ENT: No nasal bleeding or discharge. Mucous membranes pink and moist. NECK: Trachea midline. No JVD. CARDIOVASCULAR: Regular rate and rhythm. RESPIRATORY: No accessory muscle use. Clear to auscultation. Breath sounds equal bilaterally. GASTROINTESTINAL: Abdomen soft, non-tender, nondistended. Hepatic and splenic margins not palpable. MUSCULOSKELETAL: Extremities without clubbing, cyanosis.No obvious deformities. 2+ pitting edema BLE up to thighs NEUROLOGICAL: Intubated and sedated PSYCHIATRIC: Intubated and sedated Laboratory Laboratory Tests Test 06/12/16 06/12/16 06/12/16 06/12/16 18:00 18:07 19:55 21:37 White Blood Count 15.2 Red Blood Count 4.72 Hemoglobin 13.2 Hematocrit 43.5 Mean Corpuscular Volume 92.1 Mean Corpuscular Hemoglobin 28.1 Mean Corpuscular Hemoglobin 30.5 Concent Red Cell Distribution Width 23.2 Platelet Count 128 Mean Platelet Volume 10.0 Neutrophils (%) (Auto) 88.7 Lymphocytes (%) (Auto) 5.1 Monocytes (%) (Auto) 5.8 Eosinophils (%) (Auto) 0.3 Basophils (%) (Auto) 0.1 Neutrophils # (Auto) 13.5 Lymphocytes # (Auto) 0.8 Monocytes # (Auto) 0.9 Eosinophils # (Auto) 0.0 Basophils # (Auto) 0.0 CBC Comment AUTO DIFF Differential Comment AUTO DIFF CONFIRMED Platelet Estimate LOW Platelet Morphology Comment NORMAL Ovalocytes 1+ Aren Cells 2+ Prothrombin Time 31.2 Prothromb Time International 2.7 Ratio Activated Partial 33.5 Thromboplast Time Sodium Level 133 Potassium Level 6.1 Chloride Level 104 Carbon Dioxide Level 18.1 Anion Gap 11 Blood Urea Nitrogen 35 Creatinine 1.74 Estimat Glomerular Filtration 29 Rate Random Glucose 122 Lactic Acid Level 2.8 Calcium Level 8.0 Magnesium Level 1.8 Total Bilirubin 2.5 Aspartate Amino Transf 96 (AST/SGOT) Alanine Aminotransferase 76 (ALT/SGPT) Alkaline Phosphatase 165 Troponin I 0.14 B-Type Natriuretic Peptide 2763 Total Protein 7.4 Albumin 2.3 Blood Gas Puncture Site RT RADIAL RT RADIAL Blood Gas Patient Temperature 98.6 98.6 Blood Gas HCO3 17 17 Blood Gas Base Excess -7.7 -8.5 Blood Gas Oxygen Saturation 92 95 Arterial Blood pH 7.37 7.28 Arterial Blood Partial 29 38 Pressure CO2 Arterial Blood Partial 94 121 Pressure O2 Arterial Blood Oxygen Content 18.4 19.5 Arterial Blood 2.9 2.2 Carboxyhemoglobin Arterial Blood Methemoglobin 2.1 1.4 Blood Gas Hemoglobin 14.2 14.6 Oxygen Delivery Device NASAL CANNULA VENTILATOR Blood Gas Liter Flow 4 Urine Color DARK-YELLOW Urine Turbidity HAZY Urine pH 5.[address] 1.025 Urine Protein 100 Urine Glucose (UA) NEG Urine Ketones NEG Urine Occult Blood SMALL Urine Nitrite NEG Urine Bilirubin NEG Urine Urobilinogen 4.0 Urine Leukocyte Esterase TRACE Urine RBC 1 Urine WBC 9 Urine Squamous Epithelial <1 Cells Urine Bacteria MANY Microscopic Urinalysis Comment CULTURE INDICATED Blood Gas Ventilator Setting AC 500 RR14 PEEP 5 Blood Gas Inspired Oxygen 50 Test 06/12/16 06/13/16 06/13/16 06/13/16 23:11 00:30 04:23 05:48 Potassium Level 4.5 4.3 Lactic Acid Level 4.8 2.0 Ammonia 86 Troponin I 0.14 0.12 Nasal Screen MRSA (PCR) NEGATIVE White Blood Count 11.5 Red Blood Count 4.54 Hemoglobin 13.1 Hematocrit 41.0 Mean Corpuscular Volume 90.2 Mean Corpuscular Hemoglobin 28.7 Mean Corpuscular Hemoglobin 31.9 Concent Red Cell Distribution Width 23.0 Platelet Count 77 Mean Platelet Volume 9.4 Neutrophils (%) (Auto) 95.5 Lymphocytes (%) (Auto) 1.6 Monocytes (%) (Auto) 2.8 Eosinophils (%) (Auto) 0.0 Basophils (%) (Auto) 0.1 Neutrophils # (Auto) 11.0 Lymphocytes # (Auto) 0.2 Monocytes # (Auto) 0.3 Eosinophils # (Auto) 0.0 Basophils # (Auto) 0.0 CBC Comment AUTO DIFF Differential Comment AUTO DIFF CONFIRMED Platelet Estimate LOW Platelet Morphology Comment NORMAL Magnet Cells 1+ Prothrombin Time 23.2 21.8 Prothromb Time International 2.0 1.9 Ratio Activated Partial 33.9 Thromboplast Time Sodium Level 136 Chloride Level 105 Carbon Dioxide Level 19.5 Anion Gap 12 Blood Urea Nitrogen 32 Creatinine 1.54 Estimat Glomerular Filtration 33 Rate Random Glucose 152 Calcium Level 8.1 Phosphorus Level 3.3 Magnesium Level 1.6 Total Bilirubin 2.7 Direct Bilirubin 1.9 Indirect Bilirubin 0.8 Aspartate Amino Transf 45 (AST/SGOT) Alanine Aminotransferase 52 (ALT/SGPT) Alkaline Phosphatase 121 Total Protein 5.7 Albumin 1.8 Triglycerides Level 70 Cholesterol Level LESS THAN 50 LDL Cholesterol 23 HDL Cholesterol 13.4 Cholesterol/HDL Ratio 3.73 Amylase Level 28 Lipase 21 Random Cortisol 54.5 Test 06/13/16 06/13/16 12:01 13:55 Prothrombin Time 22.3 20.7 Prothromb Time International 2.0 1.8 Ratio Date/Time Procedure Status Source Growth 06/12/16 19:55 Urine Culture - Preliminary Resulted Urine Catheterized Urine Gram Negative Rene 06/12/16 19:55 Streptococcus pneumoniae Antigen (M - Final Complete Urine Catheterized Urine Pos For Pneumococcal Antigen 06/12/16 19:55 Legionella Antigen - Final Complete Urine Catheterized Urine PRESUMPTIVE NEGATIVE FOR LEGIONELLA P... 06/12/16 19:55 Cancelled Urine Clean Catch 06/12/16 18:10 Aerobic Blood Culture - Preliminary Resulted Blood Peripheral NO GROWTH IN 1 DAY 06/12/16 18:10 Anaerobic Blood Culture - Preliminary Resulted Blood Peripheral NO GROWTH IN 1 DAY 06/12/16 18:00 Influenza Types A,B Antigen (KYLE) - Final Complete Nasal Washing NEGATIVE FOR FLU A AND B ANTIGEN.... (Antonella Marcial) Result Diagram: 06/13/1642206/13/16422 Imaging Last Impressions Chest X-Ray 06/12/162058 Signed Impressions: Service Date/Time: June 21:08 - CONCLUSION: Interim intubation and nasogastric tube placement, appropriately positioned as above. Patchy airspace opacities are again noted, slightly worse. Tahir Kemp MD Abdomen/Pelvis CT 06/12/16 0000 Signed Impressions: Service Date/Time: Monday, June 13, 2016 04:47 - CONCLUSION: Generalized anasarca. Consolidation in the dependent lower lungs. Marco Patel MD (Antonella Marcial) Assessment and Plan Problem List: (1) Acute on chronic renal insufficiency Plan: Chronic renal disease likely related to diabetic nephropathy as well as hypertensive nephrosclerosis. Her acute renal decline could be related to cardiac decompensation given her severely impaired myocardial function. She was given 100mg IV Lasix today given her edema. Her BP is low presently, so we will assess her need for diuretics tomorrow. Will check serology as well as a 24h urine for protein quantification given her longstanding diabetes and hypoalbuminemia Monitor I&Os. Medications should be adjusted for her renal decline. Avoid iodinated contrast dyes as well as gadolinium when eGFR <30. (2) CHF exacerbation Plan: Diuretics as ordered. (3) HIV (human immunodeficiency virus infection) Plan: Pending cell counts. Mgmt as per ID (4) DM (diabetes mellitus) Plan: mgmt as per primary (Antonella Marcial) Assessment and Plan The exam, history, and the medical decision-making described in the above note were completed with the assistance of the PA-C. I reviewed and agree with the findings presented. I attest that I had a [id number] encounter with the patient on the same day, and personally performed and documented my assessment and findings in the medical record. (Archie Larios MD) Problem Qualifiers (1) CHF exacerbation: Qualified Code: I50.9 - Acute on chronic congestive heart failure, unspecified congestive heart failure type Antonella Marcial Jun 13, 2016 17:48 Archie Larios MD Jun 14, 2016 17:05
[2016-06-13 19:08] LABS: BICARBONATE 21.9 MEQ/L (21.0-32.0); POTASSIUM 3.8 MEQ/L (3.5-5.1)
[2016-06-13] MEDS: VANCOMYCIN 1,000 MG/NS 250 ML IV SCH ×2 (20:39)
[2016-06-13 22:15] LABS: INTERNATIONAL NORMALIZED RATIO 1.6 RATIO; PROTHROMBIN TIME - PATIENT 18.4 SEC (9.8-11.6)
[2016-06-14] VITALS (18 sets, daily range): BP systolic 94–108; BP diastolic 58–68; PULSE 100–127; RESP 4–17; TEMP 98.1–101.3; O2SAT 96–98
[2016-06-14] MEDS: RESP: ALBUTEROL 2.5 MG/IPRATROPIUM 0.5 MG NEB (SCH) INH ×4 (03:10→19:49)
[2016-06-14] MEDS: CHLORHEXIDINE GLUCONATE 2 % 1 PACK (2 CLOTHS) TOP SCH (04:00)
[2016-06-14] MEDS: fentaNYL DRIP 250 ML IV SCH ×2 (04:56→21:22)
[2016-06-14 07:08] LABS: MEAN CELL VOLUME 89.9 FL (80.0-100.0); MEAN CORPUSCULAR HEMOGLOBIN 28.6 PG (27.0-34.0); MEAN CORPUSCULAR HGB CONC 31.8 % (32.0-36.0); PLATELET COUNT 99 TH/MM3 (150-450); RED BLOOD COUNT 4.45 MIL/MM3 (4.00-5.30); RED CELL DISTRIBUTION WIDTH 23.3 % (11.6-17.2); WHITE BLOOD COUNT 11.5 TH/MM3 (4.0-11.0)
[2016-06-14 07:18] LABS: REVIEW FLAG FINAL
[2016-06-14] MEDS ORDERED: METOPROLOL TARTRATE 5 MG/5 ML VIAL ONE (07:19)
[2016-06-14 07:48] LABS: BICARBONATE 23.5 MEQ/L (21.0-32.0); POTASSIUM 3.6 MEQ/L (3.5-5.1)
[2016-06-14] MEDS: CHLORHEXIDINE 0.12% (ORAL KIT) 15 ML CUP MT SCH ×2 (08:13→21:23)
[2016-06-14] MEDS: DOCUSATE SODIUM 100 MG/10 ML UDC G-TUBE SCH ×2 (08:13→21:22)
[2016-06-14] MEDS: PANTOPRAZOLE SODIUM 40 MG VIAL IV SCH (08:13)
[2016-06-14] MEDS: SODIUM CHLORIDE 0.9% FLUSH 5 ML FLUSH IV FLUSH SCH ×2 (08:13→21:23)
[2016-06-14] MEDS ORDERED: METOPROLOL TARTRATE 5 MG/5 ML VIAL IV PUSH ONE ×2 (08:45→09:00)
[2016-06-14] MEDS ORDERED: FUROSEMIDE 100 MG/10 ML VIAL IV PUSH ONE ×2 (09:15→18:00)
[2016-06-14] MEDS ORDERED: DEXTROSE 50% IN WATER 50 ML VIAL(D50) IV PUSH PRN (09:30)
--- NOTE | 2016-06-14 09:33 | HHI.CCPN ---
Subjective Remarks/Hospital Course Hospital Course: 71-year-old female with a history of hypertension, hyperlipidemia, diabetes, asthma, CHF, pacemaker with AICD, HIV, presented to the ED with progressive SOB. The patient is Tam[place]-speaking only and daughter is in the room for interpretation. The patient complained of a productive cough for approximately 1 week. The patient complained of chest tightness in conjunction with her shortness of breath. Note the patient was recently hospitalized 05/11/16, for similar presentation of CHF exacerbation, and abdominal pain. At that time the patient had an echo performed which revealed an ejection fraction of 15%. The patient had complained of loose yellow stools, and abdominal pain. Critical care medicine was consulted for treatment and management. Upon entering the ED, the patient was noted to be severely dyspneic, currently on 4 L nasal cannula, the patient was changed to a facemask at 10 L/m, the patient continued to have O2 desaturation, O2 sats in the 80s. I discussed with the patient impending need of required intubation, for acute respiratory distress. The patient stated she wanted to be intubated. I discussed with the daughter the risk and benefits ,the patient's respiratory status and the need for intubation. The patient was emergently intubated in the ED without difficulty. The patient was then placed on mechanical ventilation at 100% and then subsequently weaned to FiO2 of 50%. Subjective: 06/14: given 2 doses of lasix 100mg iv yesterday for volume overloaded. echo ordered and pending. pneumococcal urinary antigen +, blood growing G+, urine growing G- rods. speciation pending. still intubated. awake this AM, but apneic on SBT. not on pathway. Objective Vital Signs Date Time Temp Pulse Resp B/P Pulse Ox O2 Delivery O2 Flow Rate FiO2 06/14/16 08:00 123 06/14/16 07:27 98 40 06/14/16 04:00 99.4 16 103/58 06/13/16 00:11 Ventilator 06/12/16 18:31 4 Intake and Output 06/13/16 06/13/16 06/14/16 08:00 16:00 00:00 Intake Total 108 ml 497 ml 344 ml Output Total 600 ml 1500 ml 1100 ml Balance -492 ml -1003 ml -756 ml Result Diagram: 06/14/16 0531 06/14/16530 Other Results Microbiology Date/Time Procedure Status Source Growth 06/12/16 18:00 Influenza Types A,B Antigen (KYLE) - Final Complete Nasal Washing NEGATIVE FOR FLU A AND B ANTIGEN.... 06/12/16 19:55 Legionella Antigen - Final Complete Urine Catheterized Urine PRESUMPTIVE NEGATIVE FOR LEGIONELLA P... 06/12/16 19:55 Streptococcus pneumoniae Antigen (M - Final Complete Urine Catheterized Urine Pos For Pneumococcal Antigen Objective Remarks GENERAL: Critically ill-appearing female, lying in bed. intubated. HEENT: NCAT. pupils equal and round. no scleral icterus. mucous membranes moist. NECK: Trachea midline. JVD up to mid neck. CARDIOVASCULAR: Normal rate, regular rhythm. RESPIRATORY: Mechanical ventilation Clear to auscultation. Breath sounds equal bilaterally. GASTROINTESTINAL: Abdomen soft, obese non-tender, nondistended. Well-healed old abdominal scar, right side of abdomen. MUSCULOSKELETAL: Extremities without clubbing, cyanosis, or edema. No obvious deformities. NEUROLOGICAL: Awakens to voice. RASS -1. No gross focal/sensory deficits. Follows commands in all 4 extremities. A/P Assessment and Plan This is a critically ill 71-year-old female that presents with CHF exacerbation requiring emergent intubation, hyperkalemia, sepsis from likely pneumococcal pneumonia and gram negative UTI .Her ejection fraction is 15%, currently she remains tachycardic and clinically volume overloaded. The patient's prognosis is guarded. Neurologic: Pain-abdominal -Patient is intubated and sedated currently on and fentanyl infusion -RASS goal -1 -fentanyl for goal RASS. Respiratory: Acute hypoxic respiratory failure Asthma -Mechanical ventilation-PRVC ,FiO2.40, failed SBT this AM for apnea. -Scheduled bronchodilators every 4 hours, q2h prn -Ventilator bundle -Sedation holiday -Maintain head of the bed 30 Cardiovascular: CHF exacerbation Cardiomyopathy Pacer/AICD Sinus Tachycardia -ECHO 05/11/16- EF 15%, No RWMA,MV moderate regurgitation, TV moderate regurgitation, PASP 62 -repeat echo pending. -Patient currently normotensive -tachycardia likely secondary to anxiety on vent. will use lopressor as needed to help optimize hemodynamics, as I would like to avoid sedation. Renal: Acute on chronic kidney injury Acute intravascular volume overload -Patient received in ED sodium bicarbonate, calcium gluconate, 40 mg of Lasix -Nephrology following: Dr. Larios. -continue daily BMP -continue Griggs -Lasix 100mg iv x 1. -- Strict I/Os FEN/GI: Hyperkalemia Hyponatremia Abdominal pain Hyperlipidemia -Maintain NPO status -Patient home med atorvastatin -K resolving. Heme/ID: Sepsis HIV on HAART therapy Pneumococcal pneumonia Gram - UTI -Monitor CBC . -continue cefepime and vancomycin -await speciation. Endocrine: Diabetes mellitus -- SSI, q6h, medium scale Prophylaxis: GI Prophylaxis Protonix DVT Prophylaxis -- SCDs Hold pharmacological prophylaxis patient on Xarelto, and Plavix per home records. Elevated INR2.7 Lines: Peripheral IV Dispo: This patient remains critically ill with one or more organ systems which are or may become a threat to life. I have spent in excess of 42 minutes discontinuously in the care and management of this patient. This time is exclusive of procedures, and includes, but is not limited to, evaluation of the patient, review of the medical record, discussions with family, consultants, nursing staff, or respiratory therapy, and documentation in the medical record. Sharad Ortiz MD Jun 14, 2016 09:33
[2016-06-14] MEDS: CEFEPIME INJ 2,000 MG in SODIUM CHLORIDE 0.9% INJ 100 ML IV SCH ×2 (09:49→21:24)
[2016-06-14] MEDS: MAGNESIUM SULFATE 1 GM PREMIX 100 ML IV SCH ×2 (10:10→11:49)
[2016-06-14] MEDS: POTASSIUM CHLOR 20 MEQ PREMIX 100 ML IV SCH ×2 (10:11→11:49)
--- NOTE | 2016-06-14 11:28 | EKG ---
Date Performed: 06/14/2016 Time Performed: 07:52:21 PTAGE: 71 years EKG: SINUS TACHYCARDIA WITH OCCASIONAL VENTRICULAR PREMATURE COMPLEXES POSSIBLE ANTERIOR MYOCARD IAL INFARCTION , OF INDETERMINATE AGE ABNORMAL ECG PREVIOUS TRACING : 06/12/2016 18.18 Since previous tracing, no significant change noted DOCTOR: Tre Caceres Interpretating Date/Time 06/14/2016 11:26:17
--- NOTE | 2016-06-14 12:12 | EC ---
Study Study Date:06/14/2016 STUDY CONCLUSIONS SUMMARY - Left ventricle: The cavity size was dilated. Wall thickness was normal. The estimated ejection fraction was in the range of 10% to 15%. Diffuse hypokinesis. - Mitral valve: Moderate regurgitation. - Left atrium: The atrium was mildly dilated. - Right ventricle: The cavity size was dilated. Wall thickness was normal. Systolic function was reduced. - Tricuspid valve: Mild regurgitation. - Pulmonic valve: Mild regurgitation. - Pulmonary arteries: Systolic pressure was mildly increased. PA peak pressure: 57mm Hg (S). If LV function is below 40, please consider prescribing an ACEI or ARB or document rationale for non-use. PROCEDURE DATA STUDY STATUS: Elective. Procedure: Transthoracic echocardiography. Image quality was good. Scanning was performed from the parasternal, apical, and subcostal acoustic windows. Study completion: The patient tolerated the procedure well. Transthoracic echocardiography. M-mode, complete 2D, complete spectral Doppler, and color Doppler. Patient status: Inpatient. CARDIAC ANATOMY LEFT VENTRICLE: The cavity size was dilated. Wall thickness was normal. The estimated ejection fraction was in the range of 10% to 15%. Diffuse hypokinesis. AORTIC VALVE: Normal thickness leaflets. Doppler: Transvalvular velocity was within the normal range. There was no stenosis. No regurgitation. AORTA: Aortic root: The aortic root was normal in size. MITRAL VALVE: Structurally normal valve. Doppler: Transvalvular velocity was within the normal range. There was no evidence for stenosis. Moderate regurgitation. Mean gradient: 2mm Hg (D). Peak gradient: 6mm Hg (D). LEFT ATRIUM: The atrium was mildly dilated. RIGHT VENTRICLE: The cavity size was dilated. Wall thickness was normal. Systolic function was reduced. PULMONIC VALVE: Doppler: Transvalvular velocity was within the normal range. There was no evidence for stenosis. Mild regurgitation. TRICUSPID VALVE: Structurally normal valve. Doppler: Transvalvular velocity was within the normal range. Mild regurgitation. PULMONARY ARTERY: The main pulmonary artery was normal-sized. Systolic pressure was mildly increased. RIGHT ATRIUM: The atrium was normal in size. PERICARDIUM: There was no pericardial effusion. SYSTEMIC VEINS: Inferior vena cava: The vessel was normal in size. BASIC MEASUREMENTS ADULT Normal Left ventricle LV internal dimension, ED, chordal level, *53.6 mm 43-52 PLAX LV internal dimension, ES, chordal level, *50.3 mm 23-38 PLAX Fractional shortening, chordal level, PLAX *6 % >29 LV posterior wall thickness, ED 7.61 mm IVS/LVPW ratio, ED 1.03 <1.3 Ventricular septum Septal thickness, ED 7.86 mm Aortic valve Leaflet separation 21 mm 15-26 Left atrium Anterior-posterior dimension 46 mm Right ventricle RV internal dimension, ED, PLAX 30.7 mm 19-38 BASIC MEASUREMENTS ADULT Normal Aortic valve Leaflet separation 21 mm 15-26 Aorta Root diameter, ED 33 mm 20-37 DOPPLER MEASUREMENTS ADULT Normal Main pulmonary artery Pressure, S *57 mm Hg =30 Aortic valve VTI, S 36.7 cm Mitral valve Peak E-wave velocity 125 cm/s Mean velocity, D 67.5 cm/s Mean gradient, D 2 mm Hg Peak gradient, D 6 mm Hg Maximal regurgitant velocity 429 cm/s Tricuspid valve Regurgitant peak velocity 325 cm/s Peak RV-RA gradient, S 42 mm Hg Maximal regurgitant velocity 325 cm/s Systemic veins Estimated CVP 10 mm Hg Right ventricle RV pressure, S *57 mm Hg <30 LEGEND: Mean values are shown as u=mean value. Asterisk (*) riggins values outside specified normal range. Amended James Arriola [id number]
[2016-06-14] MEDS: INSULIN NovoLIN REGULAR SUPPLEMENTAL SCALE SQ SCH ×2 (12:15→17:32)
[2016-06-14] MEDS: DEXMEDETOMIDINE 200 MCG/50 ML NS IV SCH ×2 (13:37→21:40)
--- NOTE | 2016-06-14 14:03 | HHI.NPPN ---
Subjective History of Present Illness The patient is a 71 yo female who presented to the ED yesterday with complaints of SOB. She was admitted for similar complaint this past May. She apparently just moved here from [place] and has not been able to establish with local physicians. Daughter is in room and provides all information as the patient is intubated. Apparently, prior to her move here she was advised of potential CKD. During her admission in May, her SCr fluctuated but was 1.14 on 05/11 and 1.54 on 05/24. She was at 1.74 at arrival and improved slightly to 1.54 at time of consult. She is a longstanding hypertensive and diabetic both of 40+ years. She does have complications with her diabetes including retinopathy and neuropathy. The daughter endorses that she has been told of heavy proteinuria in the past. She is also HIV positive and is actively being treated. Review of her May admission shows an echocardiogram that shows severe cardiomyopathy with an EF of 15%. She does have an AICD that that daughter says was placed about 1.5 years ago. Interval History The patient is currently still intubated and on CPAP trials. She is awake and alert. Daughter present in room. UOP was 3500 last evening. Echo done today shows a severely diminished EF of 10-15% (Antonella Marcial) Objective Data Data 06/13/16 06/14/16 19:00 07:00 Intake Total 497 ml 848 ml Output Total 1750 ml 1750 ml Balance -1253 ml -902 ml Intake IV Total 457 ml 848 ml Other 40 ml Output Urine Total 1750 ml 1750 ml # Bowel Movements 0 Vital Signs Date Time Temp Pulse Resp B/P Pulse Ox O2 Delivery O2 Flow Rate FiO2 06/14/16 11:41 98 40 06/14/16 10:00 117 06/14/16 08:00 98.1 123 4 103/68 96 06/14/16 08:00 123 06/14/16 07:27 98 40 06/14/16 06:00 120 06/14/16 04:00 109 06/14/16 04:00 99.4 109 16 103/58 97 06/14/16 04:00 40 06/14/16 03:10 97 40 06/14/16 02:00 100 06/14/16 00:00 99.3 112 16 102/59 96 06/14/16 00:00 40 06/14/16 00:00 112 06/13/16 23:49 97 40 06/13/16 22:00 112 06/13/16 20:45 96 40 06/13/16 20:00 99.2 107 16 115/57 96 06/13/16 20:00 107 06/13/16 20:00 40 06/13/16 18:00 99 06/13/16 16:00 86 06/13/16 16:00 40 06/13/16 16:00 98.1 85 16 91/54 96 06/13/16 15:38 96 40 06/13/16 14:00 88 (Antonella Marcial) -: 06/14/16 0531 06/14/16 0531 Imaging Last Impressions Chest X-Ray 06/12/162058 Signed Impressions: Service Date/Time: June 21:08 - CONCLUSION: Interim intubation and nasogastric tube placement, appropriately positioned as above. Patchy airspace opacities are again noted, slightly worse. Tahir Kemp MD Abdomen/Pelvis CT 06/12/16 0000 Signed Impressions: Service Date/Time: Monday, June 13, 2016 04:47 - CONCLUSION: Generalized anasarca. Consolidation in the dependent lower lungs. Marco Patel MD Medication Review Current Medications Medications (Trade) Dose Ordered Sig/Quynh Route Start Time Stop Time Status Last Admin (fentaNYL DRIP) 250 ml @ 0 mls/hr TITRATE IV 06/12/16 21:30 06/14/16 04:56 (NS Flush) 2 ml UNSCH PRN IV FLUSH 06/12/16 21:30 (NS Flush) 2 ml BID IV FLUSH 06/13/16 09:00 06/14/16 08:13 (Tylenol) 650 mg Q6H PRN PO 06/12/16 21:30 (Protonix Inj) 40 mg DAILY IV 06/13/16 09:00 06/14/16 08:13 (Zofran Inj) 4 mg Q6H PRN IV 06/12/16 21:30 (Colace Liq) 100 mg Q12H G-TUBE 06/12/16 21:30 06/14/16 08:13 (Dulcolax Supp) 10 mg DAILY PRN RECTAL 06/12/16 21:30 (Milk Of Magnesia Liq) 30 ml Q12H PRN PO 06/12/16 21:30 Miscellaneous Information 1 Q361D XX 06/12/16 21:30 (Chlorhexidine 2% Cloth) 3 pack Taper DAILY@04 TOP 06/13/16 04:00 06/09/17 03:59 06/14/16 04:00 Chlorhexidine Gluconate 3 pack 3 pack UNSCH PRN TOP 06/12/16 21:30 Cefepime HCl 2000 mg/Sodium Chloride 100 ml @ 200 mls/hr Q12H IV 06/13/16 10:00 06/14/16 09:49 Pharmacy Profile Note 0 ml @ 0 mls/hr UNSCH OTHER 06/13/16 05:15 (Vancomycin Inj/ NS 250 ml Inj) 250 ml @ 250 mls/hr HS IV 06/13/16 21:00 06/13/16 20:39 Miscellaneous Information SPECIFIC LAB TO BE DEMARIO... ONCE ONCE XX 06/15/16 20:45 06/15/16 20:46 Chlorhexidine Gluconate 15 ml 15 ml BID@08,20 MT 06/13/16 08:00 06/14/16 08:13 (Precedex Inj) 50 ml @ 0 mls/hr TITRATE IV 06/13/16 09:30 06/14/16 13:37 (D50w (Vial) Inj) 25 ml UNSCH PRN IV PUSH 06/14/16 09:30 (NovoLIN R SUPPLEMENTAL SCALE) 1 Q6HR SQ 06/14/16 12:00 06/14/16 12:15 (Antonella Marcial) Physical Exam General Appearance: Comfortable (Antonella Marcial) Pulmonary Resp Exam: Breath Sounds Equal, Diminished Breath Sounds (Antonella Marcial) Cardiology CV Exam: Regular, Normal Sinus Rhythm (Antonella Marcial) Gastrointestinal/Abdomen GI Exam: Soft, Non-Tender (Antonella Marcial) Integumentary Skin Exam: Warm (Antonella Marcial) Extremeties Extremities Exam: Pitting Edema Extremeties Remarks generalized pitting edema (Antonella Marcial) Neurologic Neuro Exam: Alert, Awake (Antonella Marcial) Assessment/Plan Problem List: (1) Acute on chronic renal insufficiency Plan: Chronic renal disease likely related to diabetic nephropathy as well as hypertensive nephrosclerosis. Her acute renal decline could be related to cardiac decompensation given her severely impaired myocardial function. Renal functions overall stable, but given her edema, she does need diuresis which may overall cause worsening azotemia. Was given Lasix 100mg IV at 0900 today. Monitor I&Os. Serology pending. Medications should be adjusted for her renal decline. Avoid iodinated contrast dyes as well as gadolinium when eGFR <30. (2) CHF exacerbation Plan: EF at 10-15% Diuretics as ordered. (3) HIV (human immunodeficiency virus infection) Plan: Pending cell counts. Mgmt as per ID (4) DM (diabetes mellitus) Plan: mgmt as per primary (Antonella Marcial) Plan . The exam, history, and the medical decision-making described in the above note were completed with the assistance of the PA-C. I reviewed and agree with the findings presented. I attest that I had a [id number] encounter with the patient on the same day, and personally performed and documented my assessment and findings in the medical record. (Archie Larios MD) Problem Qualifiers (1) CHF exacerbation: Qualified Code: I50.9 - Acute on chronic congestive heart failure, unspecified congestive heart failure type Antonella Marcial Jun 14, 2016 14:03 Archie Larios MD Jun 14, 2016 17:05
[2016-06-14 20:33] LABS: BICARBONATE 24.4 MEQ/L (21.0-32.0); MAGNESIUM 2.1 MG/DL (1.5-2.5); POTASSIUM 3.9 MEQ/L (3.5-5.1)
[2016-06-14] MEDS: VANCOMYCIN 1,000 MG/NS 250 ML IV SCH ×2 (21:23)
[2016-06-14] MEDS: ACETAMINOPHEN 325 MG TAB PO PRN (21:40)
[2016-06-15] VITALS (18 sets, daily range): BP systolic 107–137; BP diastolic 65–88; PULSE 96–142; RESP 7–17; TEMP 99.2–100.4; O2SAT 97–100
[2016-06-15] MEDS: INSULIN NovoLIN REGULAR SUPPLEMENTAL SCALE SQ SCH ×4 (00:16→17:44)
[2016-06-15] MEDS: RESP: ALBUTEROL 2.5 MG/IPRATROPIUM 0.5 MG NEB (SCH) INH ×4 (02:30→19:25)
[2016-06-15] MEDS: fentaNYL DRIP 250 ML IV SCH ×2 (03:50→20:55)
[2016-06-15] MEDS: CHLORHEXIDINE GLUCONATE 2 % 1 PACK (2 CLOTHS) TOP SCH (03:50)
[2016-06-15 03:54] LABS: CD4/CD8 RATIO 1.1 (0.86-5.00)
[2016-06-15 05:19] LABS: HEMATOCRIT 41.8 % (35.0-46.0); MEAN CELL VOLUME 88.3 FL (80.0-100.0); MEAN CORPUSCULAR HEMOGLOBIN 28.4 PG (27.0-34.0); MEAN CORPUSCULAR HGB CONC 32.2 % (32.0-36.0); PLATELET COUNT 88 TH/MM3 (150-450); RED BLOOD COUNT 4.73 MIL/MM3 (4.00-5.30); RED CELL DISTRIBUTION WIDTH 23.4 % (11.6-17.2); WHITE BLOOD COUNT 10.9 TH/MM3 (4.0-11.0)
[2016-06-15 05:31] LABS: REVIEW FLAG FINAL
[2016-06-15 05:58] LABS: POTASSIUM 3.5 MEQ/L (3.5-5.1)
[2016-06-15] MEDS ORDERED: FUROSEMIDE 100 MG/10 ML VIAL IV PUSH ONE ×3 (07:45→22:15)
[2016-06-15] MEDS ORDERED: MAGNESIUM SULFATE 1 GM PREMIX 100 ML ONE (08:27)
[2016-06-15] MEDS ORDERED: POTASSIUM CHLOR 20 MEQ PREMIX 100 ML ONE (08:27)
[2016-06-15] MEDS ORDERED: METOPROLOL TARTRATE 5 MG/5 ML VIAL ONE (08:28)
[2016-06-15] MEDS ORDERED: METOPROLOL TARTRATE 5 MG/5 ML VIAL IV PUSH PRN (08:30)
[2016-06-15] MEDS ORDERED: FUROSEMIDE 100 MG/10 ML VIAL ONE (08:30)
[2016-06-15 08:40] LABS: URINE TOTAL PROTEIN TIMED 16.3 MG/DL
[2016-06-15] MEDS: CHLORHEXIDINE 0.12% (ORAL KIT) 15 ML CUP MT SCH ×2 (08:42→20:56)
[2016-06-15] MEDS: POTASSIUM CHLOR 20 MEQ PREMIX 100 ML IV SCH ×3 (08:43→12:22)
[2016-06-15] MEDS: PANTOPRAZOLE SODIUM 40 MG VIAL IV SCH (08:44)
[2016-06-15] MEDS: DEXMEDETOMIDINE 200 MCG/50 ML NS IV SCH ×2 (08:44→17:21)
[2016-06-15] MEDS: DOCUSATE SODIUM 100 MG/10 ML UDC G-TUBE SCH ×2 (08:44→20:54)
[2016-06-15] MEDS: SODIUM CHLORIDE 0.9% FLUSH 5 ML FLUSH IV FLUSH SCH ×2 (08:44→20:56)
[2016-06-15] MEDS: MAGNESIUM SULFAT 1 GM PREMIX 100 ML x2 bags IV SCH ×2 (08:44→09:46)
[2016-06-15] MEDS: CEFEPIME INJ 2,000 MG in SODIUM CHLORIDE 0.9% INJ 100 ML IV SCH ×2 (10:19→20:55)
[2016-06-15] MEDS ORDERED: MIDAZOLAM HCL 5 MG/5 ML VIAL ONE (10:34)
--- NOTE | 2016-06-15 10:57 | HHI.NPPN ---
Subjective History of Present Illness The patient is a 71 yo female who presented to the ED yesterday with complaints of SOB. She was admitted for similar complaint this past May. She apparently just moved here from [place] and has not been able to establish with local physicians. Daughter is in room and provides all information as the patient is intubated. Apparently, prior to her move here she was advised of potential CKD. During her admission in May, her SCr fluctuated but was 1.14 on 05/11 and 1.54 on 05/24. She was at 1.74 at arrival and improved slightly to 1.54 at time of consult. She is a longstanding hypertensive and diabetic both of 40+ years. She does have complications with her diabetes including retinopathy and neuropathy. The daughter endorses that she has been told of heavy proteinuria in the past. She is also HIV positive and is actively being treated. Review of her May admission shows an echocardiogram that shows severe cardiomyopathy with an EF of 15%. She does have an AICD that that daughter says was placed about 1.5 years ago. Interval History Pt remains intubated. Is awake. No family present. (Antonella Marcial) Objective Data Data 06/14/16 06/15/16 19:00 07:00 Intake Total 610 ml 1303 ml Output Total 1225 ml 2810.0 ml Balance -615 ml -1507.0 ml Intake IV Total 523 ml 865 ml Tube Feeding 27 ml 438 ml Other 60 ml Output Urine Total 1225 ml 2750 ml Tube Feeding Residual Discard 60.0 ml # Bowel Movements 0 Vital Signs Date Time Temp Pulse Resp B/P Pulse Ox O2 Delivery O2 Flow Rate FiO2 06/15/16 08:00 40 06/15/16 08:00 142 06/15/16 08:00 100.3 142 7 137/88 98 06/15/16 07:43 99 40 06/15/16 06:00 109 06/15/16 04:00 98 40 06/15/16 04:00 111 06/15/16 04:00 99.2 111 16 109/70 99 06/15/16 04:00 40 06/15/16 02:00 97 06/15/16 00:48 99 40 06/15/16 00:00 102 06/15/16 00:00 40 06/15/16 00:00 100.4 102 16 107/68 99 06/14/16 22:08 98 40 06/14/16 22:00 109 06/14/16 20:00 101.3 102 16 94/62 98 06/14/16 20:00 102 06/14/16 20:00 40 06/14/16 19:47 98 40 06/14/16 18:00 115 06/14/16 16:00 127 06/14/16 16:00 99.3 127 16 108/65 98 06/14/16 16:00 40 06/14/16 14:37 98 40 06/14/16 14:00 123 06/14/16 12:00 116 06/14/16 12:00 100.3 116 17 100/59 98 06/14/16 12:00 40 06/14/16 11:41 98 40 (Antonella Marcial) -: 06/15/1643406/15/16434 Medication Review Current Medications Medications (Trade) Dose Ordered Sig/Quynh Route Start Time Stop Time Status Last Admin (fentaNYL DRIP) 250 ml @ 0 mls/hr TITRATE IV 06/12/16 21:30 06/15/16 03:50 (NS Flush) 2 ml UNSCH PRN IV FLUSH 06/12/16 21:30 (NS Flush) 2 ml BID IV FLUSH 06/13/16 09:00 06/15/16 08:44 (Tylenol) 650 mg Q6H PRN PO 06/12/16 21:30 06/14/16 21:40 (Protonix Inj) 40 mg DAILY IV 06/13/16 09:00 06/15/16 08:44 (Zofran Inj) 4 mg Q6H PRN IV 06/12/16 21:30 (Colace Liq) 100 mg Q12H G-TUBE 06/12/16 21:30 06/15/16 08:44 (Dulcolax Supp) 10 mg DAILY PRN RECTAL 06/12/16 21:30 (Milk Of Magnesia Liq) 30 ml Q12H PRN PO 06/12/16 21:30 Miscellaneous Information 1 Q361D XX 06/12/16 21:30 (Chlorhexidine 2% Cloth) 3 pack Taper DAILY@04 TOP 06/13/16 04:00 06/09/17 03:59 06/15/16 03:50 Chlorhexidine Gluconate 3 pack 3 pack UNSCH PRN TOP 06/12/16 21:30 Cefepime HCl 2000 mg/Sodium Chloride 100 ml @ 200 mls/hr Q12H IV 06/13/16 10:00 06/15/16 10:19 Pharmacy Profile Note 0 ml @ 0 mls/hr UNSCH OTHER 06/13/16 05:15 (Vancomycin Inj/ NS 250 ml Inj) 250 ml @ 250 mls/hr HS IV 06/13/16 21:00 06/14/16 21:23 Miscellaneous Information SPECIFIC LAB TO BE DEMARIO... ONCE ONCE XX 06/15/16 20:45 06/15/16 20:46 Chlorhexidine Gluconate 15 ml 15 ml BID@08,20 MT 06/13/16 08:00 06/15/16 08:42 (Precedex Inj) 50 ml @ 0 mls/hr TITRATE IV 06/13/16 09:30 06/15/16 08:44 (D50w (Vial) Inj) 25 ml UNSCH PRN IV PUSH 06/14/16 09:30 Insulin Human Regular 1 1 Q6HR SQ 06/14/16 12:00 06/15/16 05:52 (KCl 20 Meq Premix Inj) 100 ml @ 50 mls/hr Q2H IV 06/15/16 08:15 06/15/16 14:14 06/15/16 10:19 (Lopressor Inj) 5 mg Q4H PRN IV PUSH 06/15/16 08:30 (Antonella Marcial) Physical Exam General Appearance: Comfortable (Antonella Marcial) Pulmonary Resp Exam: Breath Sounds Equal, Diminished Breath Sounds (Antonella Marcial) Cardiology CV Exam: Regular, Normal Sinus Rhythm (Antonella Marcial) Gastrointestinal/Abdomen GI Exam: Soft, Non-Tender (Antonella Marcial) Integumentary Skin Exam: Warm (Antonella Marcial) Extremeties Extremities Exam: Pitting Edema Extremeties Remarks improving generalized pitting edema (Antonella Marcial) Neurologic Neuro Exam: Awake (Antonella Marcial) Assessment/Plan Problem List: (1) Acute on chronic renal insufficiency Plan: Chronic renal disease likely related to diabetic nephropathy as well as hypertensive nephrosclerosis. Her acute renal decline could be related to cardiac decompensation given her severely impaired myocardial function. Renal functions improving UOP great Diuretics as per CC We will continue to monitor Medications should be adjusted for her renal decline. Avoid iodinated contrast dyes as well as gadolinium when eGFR <30. (2) CHF exacerbation Plan: EF at 10-15% Diuretics as ordered. (3) HIV (human immunodeficiency virus infection) Plan: Pending cell counts. Mgmt as per ID (4) DM (diabetes mellitus) Plan: mgmt as per primary (Antonella Marcial) Problem List: (1) Acute on chronic renal insufficiency Plan: Chronic renal disease likely related to diabetic nephropathy as well as hypertensive nephrosclerosis. Her acute renal decline could be related to cardiac decompensation given her severely impaired myocardial function. Renal functions improving UOP great Diuretics as per CC We will continue to monitor Medications should be adjusted for her renal decline. Avoid iodinated contrast dyes as well as gadolinium when eGFR <30. (2) CHF exacerbation Plan: EF at 10-15% Diuretics as ordered. (3) HIV (human immunodeficiency virus infection) Plan: Pending cell counts. Mgmt as per ID (4) DM (diabetes mellitus) Plan: mgmt as per primary Plan The exam, history, and the medical decision-making described in the above note were completed with the assistance of the LUIGI. I reviewed and agree with the findings presented. . (Archie Larios MD) Problem Qualifiers (1) CHF exacerbation: Qualified Code: I50.9 - Acute on chronic congestive heart failure, unspecified congestive heart failure type Antonella Marcial Jun 15, 2016 10:57 Archie Larios MD Jun 15, 2016 18:08
[2016-06-15] MEDS ORDERED: PHARMACY ORDERED LAB XX ONE (20:45)
[2016-06-15] MEDS: VANCOMYCIN 1,000 MG/NS 250 ML IV SCH ×2 (20:56)
--- NOTE | 2016-06-15 22:21 | HHI.CCPN ---
Subjective Remarks/Hospital Course Hospital Course: 71-year-old female with a history of hypertension, hyperlipidemia, diabetes, asthma, CHF, pacemaker with AICD, HIV, presented to the ED with progressive SOB. The patient is Sinhala-speaking only and daughter is in the room for interpretation. The patient complained of a productive cough for approximately 1 week. The patient complained of chest tightness in conjunction with her shortness of breath. Note the patient was recently hospitalized 05/11/16, for similar presentation of CHF exacerbation, and abdominal pain. At that time the patient had an echo performed which revealed an ejection fraction of 15%. The patient had complained of loose yellow stools, and abdominal pain. Critical care medicine was consulted for treatment and management. Upon entering the ED, the patient was noted to be severely dyspneic, currently on 4 L nasal cannula, the patient was changed to a facemask at 10 L/m, the patient continued to have O2 desaturation, O2 sats in the 80s. I discussed with the patient impending need of required intubation, for acute respiratory distress. The patient stated she wanted to be intubated. I discussed with the daughter the risk and benefits ,the patient's respiratory status and the need for intubation. The patient was emergently intubated in the ED without difficulty. The patient was then placed on mechanical ventilation at 100% and then subsequently weaned to FiO2 of 50%. Subjective: 06/14: given 2 doses of lasix 100mg iv yesterday for volume overloaded. echo ordered and pending. pneumococcal urinary antigen +, blood growing G+, urine growing G- rods. speciation pending. still intubated. awake this AM, but apneic on SBT. not on pathway. 06/15: 2 more doses of lasix 100mg yesterday with subsequent diuresis. cr improving. more awake today. still failed SBT for tachypnea and distress. not on pathway. Objective Vital Signs Date Time Temp Pulse Resp B/P Pulse Ox O2 Delivery O2 Flow Rate FiO2 06/15/16 20:00 40 06/15/16 20:00 105 06/15/16 20:00 99.9 16 128/65 98 06/13/16 00:11 Ventilator 06/12/16 18:31 4 Intake and Output 06/14/16 06/14/16 06/15/16 08:00 16:00 00:00 Intake Total 504 ml 610 ml 563 ml Output Total 900 ml 1225 ml 1410.0 ml Balance -396 ml -615 ml -847.0 ml Result Diagram: 06/15/1643406/15/16434 Objective Remarks GENERAL: Critically ill-appearing female, lying in bed. intubated. HEENT: NCAT. pupils equal and round. no scleral icterus. mucous membranes moist. NECK: Trachea midline. JVD up to mid neck. CARDIOVASCULAR: Normal rate, regular rhythm. RESPIRATORY: Mechanical ventilation Clear to auscultation. Breath sounds equal bilaterally. GASTROINTESTINAL: Abdomen soft, obese non-tender, nondistended. Well-healed old abdominal scar, right side of abdomen. MUSCULOSKELETAL: Extremities without clubbing, cyanosis, or edema. No obvious deformities. NEUROLOGICAL: Awakens to voice. RASS -1. No gross focal/sensory deficits. Follows commands in all 4 extremities. A/P Assessment and Plan This is a critically ill 71-year-old female that presents with CHF exacerbation requiring emergent intubation, hyperkalemia, sepsis from likely pneumococcal pneumonia and gram negative UTI .Her ejection fraction is 15%, currently she remains tachycardic and clinically volume overloaded. The patient's prognosis is guarded. Her family does not have a clear understanding of how chronically and acutely critically ill she is. I have attempted daily to explain this, and I do not think they adequately comprehend this. I will consult palliative care to help address goals of care. Certainly she remains critically ill at this point, in multi-organ system dysfunction, and she is not on pathway. she continues to fail SBTs. Neurologic: Pain-abdominal -Patient is intubated and sedated currently on and precedex infusion -RASS goal -1 - precedex for goal RASS. (has worked better than fentanyl, where she was apneic yesterday) Respiratory: Acute hypoxic respiratory failure Asthma -Mechanical ventilation-PRVC ,FiO2.40, failed SBT this AM for tachypnea and distress. -Scheduled bronchodilators every 4 hours, q2h prn -Ventilator bundle -Sedation holiday -Maintain head of the bed 30 Cardiovascular: CHF exacerbation Cardiomyopathy Pacer/AICD Sinus Tachycardia -ECHO 05/11/16- EF 15%, No RWMA,MV moderate regurgitation, TV moderate regurgitation, PASP 62 -repeat echo pending. -Patient currently normotensive -tachycardia likely secondary to anxiety on vent. will use lopressor as needed to help optimize hemodynamics, as I would like to avoid sedation. Renal: Acute on chronic kidney injury Acute intravascular volume overload -Patient received in ED sodium bicarbonate, calcium gluconate, 40 mg of Lasix -Nephrology following: Dr. Larios. -continue daily BMP -continue Griggs -Lasix 100mg iv x 1. will re-address and possibly re-dose this evening. -- Strict I/Os FEN/GI: Hyperkalemia Hyponatremia Abdominal pain Hyperlipidemia -Maintain NPO status -Patient home med atorvastatin -K resolving. Heme/ID: Sepsis HIV on HAART therapy Pneumococcal pneumonia Ecoli UTI -Monitor CBC . -continue cefepime -d/c vancomycin -await speciation. - blood culture 06/11 growing staph epi, likely contaminant. Endocrine: Diabetes mellitus -- SSI, q6h, change to high scale. Prophylaxis: GI Prophylaxis Protonix DVT Prophylaxis -- SCDs Hold pharmacological prophylaxis patient on Xarelto, and Plavix per home records. Elevated INR2.7 Lines: Peripheral IV Dispo: This patient remains critically ill with one or more organ systems which are or may become a threat to life. I have spent in excess of 32 minutes discontinuously in the care and management of this patient. This time is exclusive of procedures, and includes, but is not limited to, evaluation of the patient, review of the medical record, discussions with family, consultants, nursing staff, or respiratory therapy, and documentation in the medical record. Sharad Ortiz MD Jun 15, 2016 22:21
[2016-06-16] VITALS (18 sets, daily range): BP systolic 103–123; BP diastolic 61–76; PULSE 95–135; RESP 16; TEMP 99.1–101; O2SAT 95–100
[2016-06-16] MEDS: RESP: ALBUTEROL 2.5 MG/IPRATROPIUM 0.5 MG NEB (SCH) INH ×4 (03:11→21:07)
[2016-06-16] MEDS: CHLORHEXIDINE GLUCONATE 2 % 1 PACK (2 CLOTHS) TOP SCH (04:00)
[2016-06-16] MEDS: ACETAMINOPHEN 325 MG TAB PO PRN (04:27)
[2016-06-16] MEDS: DEXMEDETOMIDINE 200 MCG/50 ML NS IV SCH ×3 (04:27→19:49)
[2016-06-16 05:09] LABS: HEMATOCRIT 45.7 % (35.0-46.0); MEAN CELL VOLUME 87.3 FL (80.0-100.0); MEAN CORPUSCULAR HEMOGLOBIN 28.4 PG (27.0-34.0); MEAN CORPUSCULAR HGB CONC 32.5 % (32.0-36.0); PLATELET COUNT 88 TH/MM3 (150-450); RED BLOOD COUNT 5.23 MIL/MM3 (4.00-5.30); RED CELL DISTRIBUTION WIDTH 22.9 % (11.6-17.2); WHITE BLOOD COUNT 10.2 TH/MM3 (4.0-11.0)
[2016-06-16 05:16] LABS: REVIEW FLAG FINAL
[2016-06-16 06:02] LABS: BICARBONATE 33.3 MEQ/L (21.0-32.0)
[2016-06-16 06:06] LABS: POTASSIUM 2.8 MEQ/L (3.5-5.1)
[2016-06-16] MEDS: INSULIN NovoLIN REGULAR SUPPLEMENTAL SCALE SQ SCH ×4 (06:29→17:54)
[2016-06-16] MEDS ORDERED: ICU - MAGNESIUM SULFATE 2 GM/NS 100 ML IV PRN ×2 (06:45)
[2016-06-16] MEDS ORDERED: ICU - POTASSIUM CHLORIDE/AQUEOUS SOLN 40 MEQ/100 ML IVPB IV PRN (06:45)
[2016-06-16] MEDS ORDERED: ICU - SODIUM PHOSPHATE 30 MMOL/NS 250 ML IV PRN ×2 (06:45)
[2016-06-16] MEDS ORDERED: ICU - MAGNESIUM SULFATE 4 GM/NS 100 ML IV PRN ×2 (06:45)
[2016-06-16] MEDS ORDERED: ICU - POTASSIUM PHOSPHATE 30 MMOL/NS 250 ML IV PRN ×2 (06:45)
[2016-06-16] MEDS ORDERED: ICU - CALL ORDERING PHYSICIAN XX PRN (06:45)
[2016-06-16] MEDS ORDERED: ICU - D/C ICU ELECTROLYTE ORDERS XX PRN (06:45)
[2016-06-16] MEDS ORDERED: ICU - MAGNESIUM OXIDE 400 MG TAB PO PRN (06:45)
[2016-06-16] MEDS ORDERED: ICU - POTASSIUM PHOSPHATE MONOBASIC 500 MG TAB PO/TUBE PRN (06:45)
[2016-06-16] MEDS: ICU - POTASSIUM CHLORIDE/AQUEOUS SOLN 20 MEQ/100 ML IVPB IV PRN ×2 (06:45→11:23)
[2016-06-16] MEDS ORDERED: ICU - POTASSIUM CHLORIDE 10% LIQUID 40 MEQ/30 ML CUP PO PRN (06:45)
[2016-06-16] MEDS: SODIUM CHLORIDE 0.9% FLUSH 5 ML FLUSH IV FLUSH SCH ×2 (07:55→19:48)
[2016-06-16] MEDS: PANTOPRAZOLE SODIUM 40 MG VIAL IV SCH (07:55)
[2016-06-16] MEDS: CHLORHEXIDINE 0.12% (ORAL KIT) 15 ML CUP MT SCH ×2 (07:57→19:47)
[2016-06-16] MEDS: CEFEPIME INJ 2,000 MG in SODIUM CHLORIDE 0.9% INJ 100 ML IV SCH (10:22)
[2016-06-16] MEDS: DOCUSATE SODIUM 100 MG/10 ML UDC G-TUBE SCH ×2 (10:23→19:48)
--- NOTE | 2016-06-16 10:37 | HHI.NPPN ---
Subjective History of Present Illness The patient is a 71 yo female who presented to the ED yesterday with complaints of SOB. She was admitted for similar complaint this past May. She apparently just moved here from [place] and has not been able to establish with local physicians. Daughter is in room and provides all information as the patient is intubated. Apparently, prior to her move here she was advised of potential CKD. During her admission in May, her SCr fluctuated but was 1.14 on 05/11 and 1.54 on 05/24. She was at 1.74 at arrival and improved slightly to 1.54 at time of consult. She is a longstanding hypertensive and diabetic both of 40+ years. She does have complications with her diabetes including retinopathy and neuropathy. The daughter endorses that she has been told of heavy proteinuria in the past. She is also HIV positive and is actively being treated. Review of her May admission shows an echocardiogram that shows severe cardiomyopathy with an EF of 15%. She does have an AICD that that daughter says was placed about 1.5 years ago. Interval History Remains intubated. Nonverbal. Objective Data Data 06/15/16 06/16/16 19:00 07:00 Intake Total 977 ml 1290 ml Output Total 1700 ml 4800 ml Balance -723 ml -3510 ml Intake IV Total 696 ml 815 ml Tube Feeding 221 ml 395 ml Tube Irrigant 80 ml Other 60 ml Output Urine Total 1700 ml 4800 ml Stool Total 0 ml Tube Feeding Residual Discard 0 ml Vital Signs Date Time Temp Pulse Resp B/P Pulse Ox O2 Delivery O2 Flow Rate FiO2 06/16/16 10:00 115 06/16/16 08:53 98 30 06/16/16 08:00 99.5 118 16 110/67 99 06/16/16 08:00 40 06/16/16 08:00 118 06/16/16 04:06 96 30 06/16/16 04:00 101.0 100 16 123/61 95 06/16/16 04:00 40 06/16/16 04:00 105 06/16/16 02:00 95 06/16/16 01:26 96 30 06/16/16 00:00 99.5 100 16 112/71 99 06/16/16 00:00 40 06/16/16 00:00 100 06/15/16 22:02 97 30 06/15/16 22:00 96 06/15/16 20:00 40 06/15/16 20:00 105 06/15/16 20:00 99.9 105 16 128/65 98 06/15/16 19:24 99 30 06/15/16 18:00 110 06/15/16 16:00 114 06/15/16 16:00 40 06/15/16 16:00 100.2 124 17 120/85 99 06/15/16 14:34 100 40 06/15/16 14:00 125 06/15/16 12:00 99.3 125 8 117/80 99 06/15/16 12:00 40 06/15/16 12:00 142 06/15/16 12:00 125 06/15/16 11:27 99 40 -: 06/16/16 0430 06/16/16 0430 Physical Exam General Appearance: Comfortable Pulmonary Resp Exam: Breath Sounds Equal, Diminished Breath Sounds Cardiology CV Exam: Regular, Normal Sinus Rhythm Gastrointestinal/Abdomen GI Exam: Soft, Non-Tender Integumentary Skin Exam: Warm Extremeties Extremities Exam: Trace Edema Assessment/Plan Problem List: (1) Acute on chronic renal insufficiency Plan: Patient's renal insufficiency is improving nicely. Primary etiology of the patient's acute renal insufficiency appears to have been cardiorenal syndrome which has improved with diuresis. Serum creatinine level almost within normal range.. At this point in time we' ll sign off. Would recommend starting maintenance diuretics with monitoring of renal indices and volume status. Any further questions please call. Agree patient's prognosis appears to be quite poor given severity of cardiomyopathy. Apparently family has been counseled but presently not appearing to have much insight. Medications should be adjusted for her renal decline. Avoid iodinated contrast dyes as well as gadolinium when eGFR <30. (2) CHF exacerbation Plan: EF at 10-15% Diuretics as ordered. (3) HIV (human immunodeficiency virus infection) Plan: Pending cell counts. Mgmt as per ID (4) DM (diabetes mellitus) Plan: mgmt as per primary Plan . Problem Qualifiers (1) CHF exacerbation: Qualified Code: I50.9 - Acute on chronic congestive heart failure, unspecified congestive heart failure type Archie aLrios MD Jun 16, 2016 10:37
[2016-06-16 10:44] LABS: ALBUMIN SPE 2.2 GM/DL (3.50-5.00); ALPHA 1 GLOBULIN 0.4 GM/DL (0.11-0.29); ALPHA 2 GLOBULIN 0.82 GM/DL (0.22-1.00); BETA GLOBULINS (SPE) 0.87 GM/DL (0.53-1.03)
--- NOTE | 2016-06-16 11:16 | PD.CONS ---
Consult Service Palliative Care Consult Requested By Dr Ortiz . Primary Care Physician No Primary Care Physician Reason for Consultation a. To assist with evaluation and management of symptoms including: dyspnea, encephalopathy b. To assist medical decision maker(s) with: better understanding of current medical conditions; weighing benefits/burdens of medical treatment options; making medical treatment decisions. HPI History of Present Illness This 71 year old pt presented to the ED from home on 06/12/16 for worsening shortness of breath. Reported significant worsening in the shortness of breath 3 days prior to presentation. Reports productive cough, clear sputum 1 week. Subjective fever and chills. As tightness with shortness of breath. She was using her albuterol nebulizers which improved symptoms for a short time. His move to [place] from [place] 1 month ago it does not yet have a PCP. Denied lightheadedness, dizziness, abdominal pain, nausea or vomiting, numbness or tingling, weakness. Known history of hypertension, hyperlipidemia, diabetes , asthma, CHF, pacemaker/AICD, HIV (on HAART treatment- last CD4 count not known ) * ED course: Tachycardic, heart rate 120s. O2 sats 84% on room air, improved to 95% on nonrebreather mask. Received Solu-Medrol, DuoNeb's. CXR= mild heart failure, she additionally received Lasix. CBC elevated 15.2. Hyperkalemic with potassium 6.1, ARF noted with creatinine 1.74/BUN 35 GFR 29. Troponin elevated 0.14, BNP elevated 2763. Lactic acid 2.8. She received calcium gluconate, insulin, dextrose, bicarbonate, Kayexalate for hyperkalemia. Also initiated on cefepime, Cipro, vancomycin. Admitted for further evaluation and treatment of CHF, pneumonia. Patient respiratory status declined. Intensivists notes discussion with patient as well as daughter regarding impending need for intubation, discussed risks/benefits, patient agreed to proceed with intubation. She was intubated in the ED without incident. [Also noted patient speaks Surinamese only, patient daughter provided translation] blood culture, urine culture pending. * 06/13-06/14 : Nephrology was consulted-notes acute on chronic renal insufficiency ; acute decline could be secondary to cardiac decompensation. continue supportive treatment diuretics, adjusting medications for renal function. Urine positive pneumococcal antigen, blood cultures positive gram-positive, urine positive for gram-negative rods. Remains intubated, On CPAP trials. * 2D echo 06/14/16: EF 10-15%, diffuse hypokinesis. Moderate mitral regurg, mild tricuspid and pulmonic regurg. Left atrium dilated, right ventricle dilated. * 18continues to receive Lasix, effectively diuresing. Creatinine improving. More awake but failing CPAP trials. On cefepime, vancomycin discontinued. Blood cultures 06/12 + staph epidermis(probable contaminant) urine culture 06/12+ Escherichia coli. Palliative care is consulted to assist with clarification of goals of treatment. Pt seen in room no visitors present. She is nonresponsive to exam. She does not follow commands in Sinhala or in Surinamese. (pt has Surinamese speaking nurse today) She initially opens eyes and appears to track but does not do this consistently. She does not withdraw to pain. + blink to threat. Following exam call to dtr #, VM left. Nursing to call me if family arrives. 1630--------Return to unit later, family still has not arrived, I have not received a return phone call yet. Will cont to try to establish meeting with family Tues. * Of note, Patient noted with recent admission 05/11-05/14. At that time medical attending notes patient was a poor historian--that she had just moved to [place] from [place] 2 weeks prior and had not establish local medical care yet. Her daughter was taking over care for her though at that time was not knowledgeable regarding patient's medical history medications. Patient apparently had been following with a toby maker in [place] and she had been on diuretics but was taken off because "they were causing damage " presumably to her kidneys. She'd been having ongoing lower extremity edema for 2-3 months prior to that admission, she presented that day due to significant worsening of edema she reported to be on HAART therapy but could not report which medicines, reported her CD4 count was "very high "and HIV levels were undetectable. 2-D echo done 05/13= EF 15%, systolic function severely reduced. Mitral valve with moderate regurg. Left atrium mildly dilated. Right ventricle dilated. Right atrium mildly dilated. Moderate tricuspid regurg. Moderately increased systolic pressure. That admission she was discharged home with her daughter, with instructions to follow-up with a primary provider in 1 week and cardiology in 2 weeks. Of note patient had chronic diarrhea that admission which she had reported have been ongoing for the past 12 years or so since gastrointestinal surgery. ----She also presented back to the ED on 05/24 with complaints of diarrhea and shoulder pain. She also reported intermittent dizziness and nausea. She denied chest pain or shortness of breath. She was diagnosed with a shoulder strain, gastroenteritis, and discharged with Lomotil and instruction to follow-up with her primary physician. Function/Cognitive Trajectory Apparently lives locally with a daughter with some help, recently moved to [place] from [place]. Poor historian, ? cognitive decline. . Review of Systems ROS Limitations: Intubated, Altered Mental Status (non responsive) Respiratory: COMPLAINS OF: Shortness of breath (initial c/ o SOB) Past Family Social History Coded Allergies: No Known Allergies (Unverified , 06/12/16) Past Medical History Hypertension Hyperlipidemia HIVon HAART Asthma CHF-EF 15%status post pacemaker/AICD Diabetes Diabetic neuropathy Diabetic retinopathy Past Surgical History Pacemaker/AICD Cholecystectomy . Reported Medications Tessalon Perles (Benzonatate) 100 Mg Cap 100 Mg PO TID PRN Lomotil (Diphenoxylate-Atropine) 2.5-0.025 Mg Tab 1 Tab PO Q6H PRN Xarelto (Rivaroxaban) 20 Mg Tab 20 Mg PO DAILY Edurant (Rilpivirine) 25 Mg Tab 25 Mg PO DAILY Toprol XL (Metoprolol Succinate) 50 Mg Tab 50 Mg PO DAILY Lisinopril 20 Mg Tab 20 Mg PO DAILY Epivir (Lamivudine) 150 Mg Tab 150 Mg PO DAILY *Fill this 5 day prescription first and begin taking Epivir 12 hours after the first dose received in the Emergency Department as prescribed.* Lantus Inj (Insulin Glargine) 1,000 Unit/10 Ml Vial 25 Units SQ HS Lasix (Furosemide) 40 Mg Tab 40 Mg PO DAILY Tivicay (Dolutegravir Sodium) 50 Mg Tab 50 Mg PO DAILY Plavix (Clopidogrel Bisulfate) 75 Mg Tab 75 Mg PO DAILY Lipitor (Atorvastatin Calcium) 80 Mg Tab 80 Mg PO HS Proventil Hfa 6.7 GM Inh (Albuterol Sulfate) 90 Mcg/Act Aer 2 Puff INH Q6H PRN . Current Medications Medications (Trade) Dose Ordered Sig/Quynh Route Start Time Stop Time Status Last Admin (fentaNYL DRIP) 250 ml @ 0 mls/hr TITRATE IV 06/12/16 21:30 06/15/16 20:55 (NS Flush) 2 ml UNSCH PRN IV FLUSH 06/12/16 21:30 (NS Flush) 2 ml BID IV FLUSH 06/13/16 09:00 06/16/16 07:55 (Tylenol) 650 mg Q6H PRN PO 06/12/16 21:30 06/16/16 04:27 (Protonix Inj) 40 mg DAILY IV 06/13/16 09:00 06/16/16 07:55 (Zofran Inj) 4 mg Q6H PRN IV 06/12/16 21:30 (Colace Liq) 100 mg Q12H G-TUBE 06/12/16 21:30 06/15/16 20:54 (Dulcolax Supp) 10 mg DAILY PRN RECTAL 06/12/16 21:30 (Milk Of Magnesia Liq) 30 ml Q12H PRN PO 06/12/16 21:30 Miscellaneous Information 1 Q361D XX 06/12/16 21:30 (Chlorhexidine 2% Cloth) 3 pack Taper DAILY@04 TOP 06/13/16 04:00 06/09/17 03:59 06/16/16 04:00 Chlorhexidine Gluconate 3 pack 3 pack UNSCH PRN TOP 06/12/16 21:30 (Maxipime Inj/NS Inj) 100 ml @ 200 mls/hr Q12H IV 06/13/16 10:00 06/15/16 20:55 Chlorhexidine Gluconate 15 ml 15 ml BID@08,20 MT 06/13/16 08:00 06/16/16 07:57 (Precedex Inj) 50 ml @ 0 mls/hr TITRATE IV 06/13/16 09:30 06/16/16 06:44 (D50w (Vial) Inj) 25 ml UNSCH PRN IV PUSH 06/14/16 09:30 (NovoLIN R SUPPLEMENTAL SCALE) 1 Q6HR SQ 06/14/16 12:00 06/16/16 06:29 (Lopressor Inj) 5 mg Q4H PRN IV PUSH 06/15/16 08:30 Miscellaneous Information D/C ICU ELECTROLYTE ORDERS... UNSCH PRN XX 06/16/16 06:45 Miscellaneous Information ICU - CALL ORDERING PHYSIC... UNSCH PRN XX 06/16/16 06:45 (KCl 40 Meq Premix Inj) 100 ml @ 25 mls/hr UNSCH PRN IV 06/16/16 06:45 Potassium Chloride 40 meq 40 meq UNSCH PRN PO 06/16/16 06:45 06/16/16 06:44 Potassium Chloride 100 ml @ 50 mls/hr UNSCH PRN IV 06/16/16 06:45 06/16/16 06:45 Magnesium Sulfate 4 gm/Sodium Chloride 108 ml @ 54 mls/hr UNSCH PRN IV 06/16/16 06:45 (Magnesium Sulfate Inj/NS Inj) 104 ml @ 52 mls/hr UNSCH PRN IV 06/16/16 06:45 Magnesium Oxide 800 mg 800 mg UNSCH PRN PO 06/16/16 06:45 (Sodium Phosphate Inj/NS 250 ml Inj) 260 ml @ 43.333 mls/ hr UNSCH PRN IV 06/16/16 06:45 Potassium Phosphate 2000 mg 2,000 mg UNSCH PRN PO/TUBE 06/16/16 06:45 (Potassium Phosphate Inj/NS 250 ml Inj) 260 ml @ 43.333 mls/ hr UNSCH PRN IV 06/16/16 06:45 Family History Per EMR no family history of diabetes or CAD. Substance Use Tobacco:none per EMR Alcohol: none per EMR Prescription med abuse: none per EMR Illicits: none per EMR . Psychosocial History Lives locally with her daughter. Recently moved to this area from [place] about a month ago, supported by a daughter locally, one daughter still lives out of state. Surinamese is her primary language. Living Will: Never completed Health Care Surrogate: Never completed Durable Power of Movie Operator: Never completed Ethical and Legal Issues pt not capacitated/encephalopathic currently unable to participate, not clear if she will regain ability to participate. per [place] statutes legal decision making would fall to majority of adult children. She has 2 (?) adult children. . Physical Exam Vital Signs Date Time Temp Pulse Resp B/P Pulse Ox O2 Delivery O2 Flow Rate FiO2 06/16/16 10:00 115 06/16/16 08:53 98 30 06/16/16 08:00 99.5 118 16 110/67 99 06/16/16 08:00 40 06/16/16 08:00 118 06/16/16 04:06 96 30 06/16/16 04:00 101.0 100 16 123/61 95 06/16/16 04:00 40 06/16/16 04:00 105 06/16/16 02:00 95 06/16/16 01:26 96 30 06/16/16 00:00 99.5 100 16 112/71 99 06/16/16 00:00 40 06/16/16 00:00 100 06/15/16 22:02 97 30 06/15/16 22:00 96 06/15/16 20:00 40 06/15/16 20:00 105 06/15/16 20:00 99.9 105 16 128/65 98 06/15/16 19:24 99 30 06/15/16 18:00 110 06/15/16 16:00 114 06/15/16 16:00 40 06/15/16 16:00 100.2 124 17 120/85 99 06/15/16 14:34 100 40 06/15/16 14:00 125 06/15/16 12:00 99.3 125 8 117/80 99 06/15/16 12:00 40 06/15/16 12:00 142 06/15/16 12:00 125 06/15/16 11:27 99 40 06/15/16 06/16/16 19:00 07:00 Intake Total 977 ml 1290 ml Output Total 1700 ml 4800 ml Balance -723 ml -3510 ml Intake IV Total 696 ml 815 ml Tube Feeding 221 ml 395 ml Tube Irrigant 80 ml Other 60 ml Output Urine Total 1700 ml 4800 ml Stool Total 0 ml Tube Feeding Residual Discard 0 ml Exam CONSTITUTIONAL/GENERAL: This is a chronically ill-appearing female, minimally responsive, on mechanical vent TUBES/LINES/DRAINS: Peripheral IV 2 right upper extremity, 1 left upper extremity. NG tube left, ET tube, SCDs, Griggs catheter SKIN: No jaundice, rashes, or lesions. Few ecchymosis to bilateral upper extremities. No wounds seen anteriorly. Skin temperature appropriate. Not diaphoretic. HEAD: Atraumatic. Normocephalic. EYES: Pupils equal and round and reactive. Extraocular motions intact. No scleral icterus. No injection or drainage. Fundi not examined. ENT: Nose without bleeding or purulent drainage. Unable to visualize oropharynx due to ET tube. NECK: Trachea midline. Supple, nontender. No palpable thyroid enlargement or nodularity. CARDIOVASCULAR: Regular rate and rhythm, no murmurs. + PVCs visible on bedside monitor, tachycardic rate 120. Peripheral pulses symmetric. RESPIRATORY/CHEST: Symmetric, unlabored respirations via mechanical vent. Clear to auscultation. Breath sounds equal bilaterally. Spontaneous respirations over vent rate. GASTROINTESTINAL: Abdomen soft, and able to determine tenderness, nondistended. No hepato-splenomegaly, or palpable masses. Bowel sounds present. GENITOURINARY: Without palpable bladder distension. Griggs catheter in place. MUSCULOSKELETAL: Extremities without clubbing, cyanosis, or edema.No mottling or clubbing. LYMPHATICS: No palpable cervical or supraclavicular adenopathy. NEUROLOGICAL: Opens eyes, initially seems to track examiner though does not do so consistently. Does not withdrawal to pain stimuli. Does not follow any commands (even when spoken in Surinamese).+ Blinks to threat. PSYCHIATRIC: No obvious anxiety/depression--totally tachycardic during stimuli, otherwise assessment limited due to clinical condition. Diagnostic Tests Laboratory Laboratory Tests Test 06/13/16 06/13/16 06/13/16 06/13/16 10:28 12:01 13:55 18:18 Absolute Lymphocytes (Cell 301 (850-3900) Immunity Percent CD3 Cells 49 % (57-85) Absolute CD3 Count 148 (840-3060) Percent CD3-/CD16+/CD56+ Cells 8 % (4-25) Absolute CD3-/CD16+/CD56+ 25 (70-760) Count Percent CD4 Cells 26 % (30-61) Absolute CD4 Count 77 (490-1740) T-[place] Ari/Suppressor Ratio 1.1 (0.86-5.00) Percent CD8 Cells 23 % (12-42) Absolute CD8 Count 69 (180-1170) Percent CD19 Cells 41 % (6-29) Absolute CD19 Count 126 (110-660) Prothrombin Time 22.3 SEC 20.7 SEC (9.8-11.6) (9.8-11.6) Prothromb Time International 2.0 RATIO 1.8 RATIO Ratio Sodium Level 138 MEQ/L (136-145) Potassium Level 3.8 MEQ/L (3.5-5.1) Chloride Level 104 MEQ/L (98-107) Carbon Dioxide Level 21.9 MEQ/L (21.0-32.0) Anion Gap 12 MEQ/L (5-15) Blood Urea Nitrogen 35 MG/DL (7-18) Creatinine 1.38 MG/DL (0.50-1.00) Estimat Glomerular Filtration 38 ML/MIN (>89) Rate Random Glucose 213 MG/DL (74-106) Calcium Level 7.7 MG/DL (8.5-10.1) Test 06/13/16 06/14/16 06/14/16 06/14/16 21:47 05:31 16:40 19:52 Prothrombin Time 18.4 SEC (9.8-11.6) Prothromb Time International 1.6 RATIO Ratio White Blood Count 11.5 TH/MM3 (4.0-11.0) Red Blood Count 4.45 MIL/MM3 (4.00-5.30) Hemoglobin 12.7 GM/DL (11.6-15.3) Hematocrit 40.0 % (35.0-46.0) Mean Corpuscular Volume 89.9 FL (80.0-100.0) Mean Corpuscular Hemoglobin 28.6 PG (27.0-34.0) Mean Corpuscular Hemoglobin 31.8 % Concent (32.0-36.0) Red Cell Distribution Width 23.3 % (11.6-17.2) Platelet Count 99 TH/MM3 (150-450) Mean Platelet Volume 9.8 FL (7.0-11.0) Sodium Level 138 MEQ/L 139 MEQ/L (136-145) (136-145) Potassium Level 3.6 MEQ/L 3.9 MEQ/L (3.5-5.1) (3.5-5.1) Chloride Level 103 MEQ/L 105 MEQ/L (98-107) (98-107) Carbon Dioxide Level 23.5 MEQ/L 24.4 MEQ/L (21.0-32.0) (21.0-32.0) Anion Gap 12 MEQ/L (5-15) 10 MEQ/L (5-15) Blood Urea Nitrogen 37 MG/DL (7-18) 39 MG/DL (7-18) Creatinine 1.43 MG/DL 1.42 MG/DL (0.50-1.00) (0.50-1.00) Estimat Glomerular Filtration 36 ML/MIN (>89) 37 ML/MIN (>89) Rate Random Glucose 247 MG/DL 246 MG/DL (74-106) (74-106) Calcium Level 7.9 MG/DL 8.1 MG/DL (8.5-10.1) (8.5-10.1) Magnesium Level 1.7 MG/DL 2.1 MG/DL (1.5-2.5) (1.5-2.5) Total Protein 6.0 GM/DL (6.0-7.6) Complement C3 91 MG/DL (90-180) Complement C4 21 MG/DL (10-40) Urine Total Volume 24 Hours 3400 ML Urine Total Protein 24 Hour 554 MG/24HR (0-150) Test 06/15/16 06/15/16 06/16/16 04:35 20:15 04:30 White Blood Count 10.9 TH/MM3 10.2 TH/MM3 (4.0-11.0) (4.0-11.0) Red Blood Count 4.73 MIL/MM3 5.23 MIL/MM3 (4.00-5.30) (4.00-5.30) Hemoglobin 13.4 GM/DL 14.9 GM/DL (11.6-15.3) (11.6-15.3) Hematocrit 41.8 % 45.7 % (35.0-46.0) (35.0-46.0) Mean Corpuscular Volume 88.3 FL 87.3 FL (80.0-100.0) (80.0-100.0) Mean Corpuscular Hemoglobin 28.4 PG 28.4 PG (27.0-34.0) (27.0-34.0) Mean Corpuscular Hemoglobin 32.2 % 32.5 % Concent (32.0-36.0) (32.0-36.0) Red Cell Distribution Width 23.4 % 22.9 % (11.6-17.2) (11.6-17.2) Platelet Count 88 TH/MM3 88 TH/MM3 (150-450) (150-450) Mean Platelet Volume 9.4 FL 9.7 FL (7.0-11.0) (7.0-11.0) Sodium Level 139 MEQ/L 137 MEQ/L (136-145) (136-145) Potassium Level 3.5 MEQ/L 2.8 MEQ/L (3.5-5.1) (3.5-5.1) Chloride Level 103 MEQ/L 94 MEQ/L (98-107) (98-107) Carbon Dioxide Level 24.0 MEQ/L 33.3 MEQ/L (21.0-32.0) (21.0-32.0) Anion Gap 12 MEQ/L (5-15) 10 MEQ/L (5-15) Blood Urea Nitrogen 40 MG/DL (7-18) 35 MG/DL (7-18) Creatinine 1.27 MG/DL 1.06 MG/DL (0.50-1.00) (0.50-1.00) Estimat Glomerular Filtration 42 ML/MIN (>89) 51 ML/MIN (>89) Rate Random Glucose 271 MG/DL 203 MG/DL (74-106) (74-106) Calcium Level 8.0 MG/DL 8.8 MG/DL (8.5-10.1) (8.5-10.1) Vancomycin Level Trough 15.3 MCG/ML (5.0-10.0) Result Diagram: 06/16/16 0430 06/16/16 0430 Microbiology Microbiology Date/Time Procedure Status Source Growth 06/12/16 19:55 Urine Culture - Final Complete Urine Catheterized Urine Escherichia Coli 06/12/16 19:55 Streptococcus pneumoniae Antigen (M - Final Complete Urine Catheterized Urine Pos For Pneumococcal Antigen 06/12/16 19:55 Legionella Antigen - Final Complete Urine Catheterized Urine PRESUMPTIVE NEGATIVE FOR LEGIONELLA P... 06/12/16 19:55 Cancelled Urine Clean Catch 06/12/16 18:10 Aerobic Blood Culture - Preliminary Resulted Blood Peripheral NO GROWTH IN 4 DAYS 06/12/16 18:10 Anaerobic Blood Culture - Final Resulted Staphylococcus Epidermidis 06/12/16 18:00 Influenza Types A,B Antigen (KYLE) - Final Complete Nasal Washing NEGATIVE FOR FLU A AND B ANTIGEN.... Imaging Last Impressions Chest X-Ray 06/12/162058 Signed Impressions: Service Date/Time: June 21:08 - CONCLUSION: Interim intubation and nasogastric tube placement, appropriately positioned as above. Patchy airspace opacities are again noted, slightly worse. Tahir Kemp MD Abdomen/Pelvis CT 06/12/16 0000 Signed Impressions: Service Date/Time: Monday, June 13, 2016 04:47 - CONCLUSION: Generalized anasarca. Consolidation in the dependent lower lungs. Marco Patel MD Patient/Family Conference Issues Discussed: Draft/pending/template * Palliative care role, purpose, approach * Additional medical, psychosocial, and spiritual history * Patients general health, functional status, and cognitive changes in the months leading up to the current hospitalization * Patient/family understanding of the current medical problems * Patient/family understanding of prognosis * Patients goals of care as best understood from advance directives and/or conversations and/or values * Current medical treatment options and benefits/burdens of those options * Likely scenarios comparing ongoing aggressive care with a transition to comfort measures only * Questions answered to the best of my ability * Palliative care contact information provided Assessment and Plan Disease Oriented Problem List: (1) Cardiomyopathy (2) Acute respiratory failure with hypoxia (3) Pneumonia (4) CHF exacerbation (5) CHF (congestive heart failure) (6) E-coli UTI (7) Acute on chronic renal insufficiency (8) Thrombocytopenia (9) Hyperkalemia (10) Asthma (11) DM (diabetes mellitus) (12) HIV (human immunodeficiency virus infection) (13) Diabetes Symptom Scale: (1) Dyspnea 0-10 Scale: Unable to quantify (2) Encephalopathy 0-10 Scale: Unable to quantify Pertinent Non-Medical Issues Psychosocial: Spiritual: Legal: pt not capacitated/encephalopathic currently unable to participate, not clear if she will regain ability to participate. [place] statutes legal decision making would fall to majority of adult children. She has 2 (?) adult children. Ethical issues impacting care: Important Contacts Daughter Marva Berrios [phone] . Prognosis This patient was admitted for shortness of breath, with known history of CHF, with acute on chronic renal insufficiency. EF 1015%. Even with ongoing aggressive interventions given severity of cardiomyopathy patient prognosis is poor. She remains very high risk for clinical deterioration, and complications related to underlying cardiac disease. Limited life expectancy. Appropriate for hospice if goals are compatible. . Code Status: Full Code Plan * Legal decision maker: pt not capacitated/encephalopathic currently unable to participate, not clear if she will regain ability to participate. [place] legal decision making would fall to majority of adult children. She has 2 (?) adult children. * Goals: TBD, fam mtg pending... Will cont to try to establish meeting with family [place]. * CODE STATUS:FULL CODE SYMPTOMS: --dyspnea: Emergently intubated 06/12; remains on mechanical vent not tolerating CPAP trials. History of asthma, CHF EF 1015 percent --Encephalopathy: Emergently intubated for respiratory failure,+ acute on chronic renal failure; ? Metabolic encephalopathy, remaining minimally responsive even off of sedation * Palliative care will continue to follow during hospital course as condition evolves, to assist patient/decision-maker with understanding of medical conditions, weighing benefits/burdens of treatment options, for clarification of goals of treatment. Additionally will assist with any symptoms of palliative concern Time Spent Total Floor Time (mins): 30 >50% Counseling/Coord of Care: Yes (d/w RN) Thank you for the opportunity to participate in the care of Ms. Spivey. Attestation To help prompt me to consider important information that might be impacting today's encounter and assessment, information from prior notes written by myself or my colleagues may have been "brought forward" into today's note. My signature on this note, however, is an attestation that I personally performed the exam, history, and/or decision-making noted today, and, unless otherwise indicated, the interactions with patient, family, and staff as well as the review of records all occurred today. I also attest that the listed assessment and stated plan reflect my best clinical judgment today based on the combination of historical information, prior notes, and today's exam/ interactions. When time spent is documented, it refers only to time spent today by the signer, or if indicated, combined time spent today by collaborating physician/nurse practitioner. Henny Hart Jun 16, 2016 11:16
[2016-06-16] MEDS ORDERED: METOPROLOL TARTRATE 5 MG/5 ML VIAL IV PUSH ONE ×2 (15:00→16:45)
[2016-06-16 15:06] LABS: ANA SCREEN POS (NEG)
--- NOTE | 2016-06-16 15:26 | RADRPT ---
EXAM DATE/TIME: 06/16/2016 14:37 [facility] COMPARISON: CHEST SINGLE AP, May 11, 2016, 19:50. CHEST SINGLE AP, June 12, 2016, 21:08. CT ABDOMEN & P RYAN W/O CONTRAST, June 13, 2016, 4:47. INDICATIONS : Respiratory distress. MEDICAL HISTORY : Hypercholesterolemia. Congestive heart failure. Deep venous thrombosis. Hypertension. Diabetes. HIV. SURGICAL HISTORY : Pacemaker. ENCOUNTER: Subsequent ACUITY: 4 - 6 days PAIN SCORE: Non-responsive. LOCATION: Bilateral chest FINDINGS: A single view of the chest demonstrates the lungs to be symmetrically aerated without evidence of mas s, infiltrate or effusion. There is an endotracheal tube with the tip seen just above the level of th e julian stable. Gastric tube in overlying the midline abdomen with the proximal port extending below the level of the gastroesophageal junction. Pacing wire overlying the cardiac silhouette. CONCLUSION: Lines and tubes as noted above. Improved aeration of the lungs. Anjelica Wilson MD on June 16, 2016 at 15:20 Board Certified Radiologist. This report was verified electronically.
[2016-06-16 16:23] LABS: MAGNESIUM 1.7 MG/DL (1.5-2.5)
--- NOTE | 2016-06-16 18:01 | HHI.CCPN ---
Subjective Remarks/Hospital Course Hospital Course: 71-year-old female with a history of hypertension, hyperlipidemia, diabetes, asthma, CHF, pacemaker with AICD, HIV, presented to the ED with progressive SOB. The patient is Uzbek-speaking only and daughter is in the room for interpretation. The patient complained of a productive cough for approximately 1 week. The patient complained of chest tightness in conjunction with her shortness of breath. Note the patient was recently hospitalized 05/11/16, for similar presentation of CHF exacerbation, and abdominal pain. At that time the patient had an echo performed which revealed an ejection fraction of 15%. The patient had complained of loose yellow stools, and abdominal pain. Critical care medicine was consulted for treatment and management. Upon entering the ED, the patient was noted to be severely dyspneic, currently on 4 L nasal cannula, the patient was changed to a facemask at 10 L/m, the patient continued to have O2 desaturation, O2 sats in the 80s. I discussed with the patient impending need of required intubation, for acute respiratory distress. The patient stated she wanted to be intubated. I discussed with the daughter the risk and benefits ,the patient's respiratory status and the need for intubation. The patient was emergently intubated in the ED without difficulty. The patient was then placed on mechanical ventilation at 100% and then subsequently weaned to FiO2 of 50%. Subjective: 06/14: given 2 doses of lasix 100mg iv yesterday for volume overloaded. echo ordered and pending. pneumococcal urinary antigen +, blood growing G+, urine growing G- rods. speciation pending. still intubated. awake this AM, but apneic on SBT. not on pathway. 06/15: 2 more doses of lasix 100mg yesterday with subsequent diuresis. cr improving. more awake today. still failed SBT for tachypnea and distress. not on pathway. 06/16: Patient has decreased responsiveness. Off sedation medications, Precedex and fentanyl for approximately 10 hours. Patient failed CPAP trials today. Objective Vital Signs Date Time Temp Pulse Resp B/P Pulse Ox O2 Delivery O2 Flow Rate FiO2 06/16/16 16:00 99.2 116 16 104/71 98 06/16/16 16:00 40 06/13/16 00:11 Ventilator 06/12/16 18:31 4 Intake and Output 06/15/16 06/15/16 06/16/16 08:00 16:00 00:00 Intake Total 740 ml 977 ml 695 ml Output Total 1400 ml 1700 ml 1700 ml Balance -660 ml -723 ml -1005 ml Result Diagram: 06/16/1642906/16/16429 Objective Remarks GENERAL: Critically ill-appearing female, lying in bed. intubated. Nonresponsive HEENT: NCAT. pupils equal and round. no scleral icterus. mucous membranes moist. NECK: Trachea midline.No JVD. CARDIOVASCULAR: Normal rate, regular rhythm. RESPIRATORY: Mechanical ventilation Clear to auscultation. Breath sounds equal bilaterally. GASTROINTESTINAL: Abdomen soft, obese non-tender, nondistended. Well-healed old abdominal scar, right side of abdomen. MUSCULOSKELETAL: Extremities without clubbing, cyanosis, or edema. No obvious deformities. NEUROLOGICAL: Eyes open spontaneously. No gross focal/sensory deficits. Not following any commands Urinary Catheter: Yes Griggs insert reason: ICU Pt Getting Diuretics Vascular Central Line Catheter: No A/P Assessment and Plan This is a critically ill 71-year-old female that presents with CHF exacerbation requiring emergent intubation, hyperkalemia, sepsis from likely pneumococcal pneumonia and gram negative UTI .Her ejection fraction is 15%, currently she remains tachycardic and clinically volume overloaded. The patient's prognosis is guarded. Her family does not have a clear understanding of how chronically and acutely critically ill she is. I have attempted daily to explain this, and I do not think they adequately comprehend this. I will consult palliative care to help address goals of care.She remains critically ill at this point, in multi -organ system dysfunction. Neurologic: Pain-abdominal Toxic encephalopathy -Patient is intubated and sedated currently on and precedex infusion -RASS goal -1 - precedex for goal RASS. Hold Fent infusion -Patient is off sedation for approximately 9 hours continues to be nonresponsive , will obtain ammonia level, and CT of the brain Respiratory: Acute hypoxic respiratory failure Asthma -Mechanical ventilation-PRVC ,FiO2.40, failed CPAP trials this AM . -Scheduled bronchodilators every 4 hours, q2h prn -Ventilator bundle -Sedation holiday -Maintain head of the bed 30 Cardiovascular: CHF exacerbation Cardiomyopathy Pacer/AICD Sinus Tachycardia -ECHO 05/11/16- EF 15%, No RWMA,MV moderate regurgitation, TV moderate regurgitation, PASP 62 -repeat echo pending. -Patient currently normotensive -tachycardia likely secondary to anxiety on vent. will use lopressor as needed to help optimize hemodynamics, as I would like to avoid sedation. Renal: Acute on chronic kidney injury Acute intravascular volume overload -Nephrology following: Dr. Larios. -continue daily BMP- Creatinine 1.06 -continue Griggs -Lasix 100mg iv x 1 on 06/15 -- Strict I/Os FEN/GI: Hyperkalemia-resolved Hyponatremia-resolved Abdominal pain Hyperlipidemia -Continue patient's tube feeds -Patient home med atorvastatin -Obtain LFT's . Heme/ID: Sepsis HIV previously on HAART therapy Pneumococcal pneumonia Hepatitis C Ecoli UTI -Monitor CBC . -continue cefepime -d/c vancomycin -await speciation. - blood culture 06/11 growing staph epi, likely contaminant. Endocrine: Diabetes mellitus -- SSI, q6h, change to high scale. Prophylaxis: GI Prophylaxis Protonix DVT Prophylaxis -- SCDs Hold pharmacological prophylaxis patient on Xarelto, and Plavix per home records. Elevated INR 1.6 Lines: Peripheral IV Dispo: This patient remains critically ill with one or more organ systems which are or may become a threat to life. I have spent in excess of 39 minutes discontinuously in the care and management of this patient. This time is exclusive of procedures, and includes, but is not limited to, evaluation of the patient, review of the medical record, discussions with family, consultants, nursing staff, or respiratory therapy, and documentation in the medical record. Physician Flor Zhao MD Jun 16, 2016 18:01
[2016-06-16 19:56] LABS: INTERNATIONAL NORMALIZED RATIO 1.5 RATIO; PROTHROMBIN TIME - PATIENT 17.4 SEC (9.8-11.6)
[2016-06-16 20:03] LABS: INDIRECT BILIRUBIN 0.9 MG/DL (0.0-0.8); TOTAL BILIRUBIN ADULT 2.5 MG/DL (0.2-1.0)
--- NOTE | 2016-06-16 22:33 | RADRPT ---
EXAM DATE/TIME: 06/16/2016 22:09 [facility] COMPARISON: No previous studies available for comparison. INDICATIONS : Altered mental status. RADIATION DOSE: 31.64 CTDIvol (mGy) MEDICAL HISTORY : Hypertension. Cardiovascular disease Deep venous thrombosis. SURGICAL HISTORY : None. ENCOUNTER: Initial ACUITY: 1 day PAIN SCALE: Non-responsive LOCATION: cranial TECHNIQUE: Multiple contiguous axial images were obtained of the head. Using automated exposure control and adj ustment of the mA and/or kV according to patient size, radiation dose was kept as low as reasonably a chievable to obtain optimal diagnostic quality images. FINDINGS: There is mild streak and motion artifact. CEREBRUM: The ventricles are normal for age. No evidence of midline shift, mass lesion, hemorrhage or acute in farction. No extra-axial fluid collections are seen. POSTERIOR FOSSA: The cerebellum and brainstem are intact. The 4th ventricle is midline. The cerebellopontine angle i s unremarkable. EXTRACRANIAL: The visualized portion of the orbits is intact. SKULL: The calvaria is intact. No evidence of skull fracture. There are air-fluid levels in both maxillary sinuses. Right greater than left. CONCLUSION: 1. No acute hemorrhage or mass effect. 2. Air-fluid levels in both maxillary sinuses right greater than left most consistent with acute sinu sitis. Jeremiah Morton MD on June 16, 2016 at 22:30 Board Certified Radiologist. This report was verified electronically.
[2016-06-17] VITALS (20 sets, daily range): BP systolic 89–117; BP diastolic 58–80; PULSE 104–136; RESP 14–16; TEMP 99.1–102.6; O2SAT 95–98
[2016-06-17] MEDS: CEFEPIME INJ 2,000 MG in SODIUM CHLORIDE 0.9% INJ 100 ML IV SCH ×3 (00:15→21:25)
[2016-06-17] MEDS: fentaNYL DRIP 250 ML IV SCH ×2 (01:14→21:21)
[2016-06-17] MEDS: DEXMEDETOMIDINE 200 MCG/50 ML NS IV SCH (02:27)
[2016-06-17] MEDS: CHLORHEXIDINE GLUCONATE 2 % 1 PACK (2 CLOTHS) TOP SCH (04:00)
[2016-06-17] MEDS: ACETAMINOPHEN 325 MG TAB PO PRN ×3 (04:33→20:46)
[2016-06-17 05:30] LABS: HEMATOCRIT 44.8 % (35.0-46.0); MEAN CELL VOLUME 88.5 FL (80.0-100.0); MEAN CORPUSCULAR HGB CONC 31.7 % (32.0-36.0); PLATELET COUNT 90 TH/MM3 (150-450); RED BLOOD COUNT 5.07 MIL/MM3 (4.00-5.30); RED CELL DISTRIBUTION WIDTH 23.4 % (11.6-17.2); WHITE BLOOD COUNT 10.8 TH/MM3 (4.0-11.0)
[2016-06-17 05:34] LABS: REVIEW FLAG FINAL
[2016-06-17 05:35] LABS: INTERNATIONAL NORMALIZED RATIO 1.5 RATIO; PROTHROMBIN TIME - PATIENT 16.4 SEC (9.8-11.6)
[2016-06-17 05:54] LABS: BICARBONATE 32.8 MEQ/L (21.0-32.0); POTASSIUM 3.5 MEQ/L (3.5-5.1)
[2016-06-17 05:57] LABS: INDIRECT BILIRUBIN 0.8 MG/DL (0.0-0.8)
[2016-06-17] MEDS: INSULIN NovoLIN REGULAR SUPPLEMENTAL SCALE SQ SCH ×4 (06:00→18:23)
[2016-06-17 08:01] LABS: MAGNESIUM 1.8 MG/DL (1.5-2.5)
[2016-06-17] MEDS: CHLORHEXIDINE 0.12% (ORAL KIT) 15 ML CUP MT SCH ×2 (08:21→20:29)
[2016-06-17] MEDS: PANTOPRAZOLE SODIUM 40 MG VIAL IV SCH (08:21)
[2016-06-17] MEDS: SODIUM CHLORIDE 0.9% FLUSH 5 ML FLUSH IV FLUSH SCH ×2 (08:21→20:30)
[2016-06-17] MEDS: DOCUSATE SODIUM 100 MG/10 ML UDC G-TUBE SCH ×2 (09:20→20:30)
[2016-06-17] MEDS ORDERED: METOPROLOL TARTRATE 5 MG/5 ML VIAL IV PUSH ONE (10:15)
--- NOTE | 2016-06-17 12:05 | HHI.HCPN ---
Reason for visit a. To assist with evaluation and management of symptoms including: dyspnea, encephalopathy b. To assist medical decision maker(s) with: better understanding of current medical conditions; weighing benefits/burdens of medical treatment options; making medical treatment decisions. Subjective/Interval History Patient seen and examined in ICU. Discussed with nurse and Dr. Chilel. Patient lying in bed with eyes open, does not track, does not blink to threat. No withdraw to noxious stimuli. Family reports that the patient is not responding to them. Tmax 100.3. Tachycardic rate 100-135. Platelets 90,000. WBC 10.8. Lactic acid 1.9. Creatinine 1.09. Total bilirubin 2.0, direct bilirubin 1.2, AST 75, ALT 35, alkaline phosphatase 208. Albumin 1.8. Repeat urine, sputum and blood cultures pending. No new imaging today. . Family/friend interactions Met with patient's daughter's (Divya) in consult room and spoke with daughter's Milan via telephone. * Palliative care role, purpose, approach * Additional medical, psychosocial, and spiritual history * Patients general health, functional status, and cognitive changes in the months leading up to the current hospitalization * Patient/family understanding of the current medical problems * Patient/family understanding of prognosis * Patients goals of care as best understood from advance directives and/or conversations and/or values * Current medical treatment options and benefits/burdens of those options * Likely scenarios comparing ongoing aggressive care with a transition to comfort measures only * Questions answered to the best of my ability * Palliative care contact information provided According to [place] statutes, health care proxy decision-making falls to the majority of adult children. I've spoken with 4 of the 7 children. 2 children are estranged and do not have contact information. Family is trying to contact patient's other son Esau. 4 children are in agreement that patient would want NO CODE and deactivation of AICD. 2 [facility] [place] [facility] [place] [facility] will plan another family meeting on 06/18 to further clarify goals. . Advance Directives Living Will: Never completed Health Care Surrogate: Never completed Durable Power of American History Teacher: Never completed Advance Directive Specifics Significant change in goals: According to [place] statutes, health care proxy decision-making falls to the majority of adult children. I've spoken with 4 of the 7 children. 2 children are estranged and do not have contact information. Family is trying to contact patient's other son Esau. 4 children are in agreement that patient would want NO CODE and deactivation of AICD. 2 daughters Daija and Daya will be arriving from [place] late ton[place], will plan another family meeting on 06/18 to further clarify goals. . Objective Vital Signs Date Time Temp Pulse Resp B/P Pulse Ox O2 Delivery O2 Flow Rate FiO2 06/17/16 11:40 98 30 06/17/16 10:00 136 06/17/16 08:25 98 30 06/17/16 08:00 99.1 111 16 103/62 98 06/17/16 08:00 40 06/17/16 08:00 111 06/17/16 06:00 104 06/17/16 05:33 16 06/17/16 04:00 107 06/17/16 04:00 100.1 105 16 101/58 98 06/17/16 04:00 40 06/17/16 03:46 97 30 06/17/16 02:00 105 06/17/16 00:35 96 30 06/17/16 00:00 107 06/17/16 00:00 40 06/17/16 00:00 100.3 107 16 117/80 96 06/16/16 22:00 105 06/16/16 22:00 98 30 06/16/16 21:39 100 30 06/16/16 20:09 97 30 06/16/16 20:00 122 06/16/16 20:00 100.1 122 16 103/76 99 06/16/16 20:00 40 06/16/16 18:00 109 06/16/16 16:00 99.2 116 16 104/71 98 06/16/16 16:00 117 06/16/16 16:00 40 06/16/16 15:28 99 30 06/16/16 14:00 135 06/16/16 12:00 99.1 115 16 110/65 98 06/16/16 12:00 114 06/16/16 12:00 40 Intake & Output 06/17/16 06/17/16 07:00 19:00 Intake Total 1646 ml Output Total 700 ml 0 ml Balance 946 ml 0 ml Intake IV Total 1038 ml Tube Feeding 558 ml Tube Irrigant 50 ml Output Urine Total 700 ml Tube Feeding Residual Discard 0 ml 0 ml # Bowel Movements 1 Physical Exam CONSTITUTIONAL/GENERAL: This is a chronically ill-appearing female, minimally responsive, on mechanical vent TUBES/LINES/DRAINS: Peripheral IV 2 right upper extremity, 1 left upper extremity. NG tube left, ET tube, SCDs, Griggs catheter SKIN: No jaundice, rashes, or lesions. Few ecchymosis to bilateral upper extremities. No wounds seen anteriorly. Skin temperature appropriate. Not diaphoretic. EYES: Pupils equal and round and reactive. ENT: Nose without bleeding or purulent drainage. Unable to visualize oropharynx due to ET tube. CARDIOVASCULAR: Regular rate and rhythm, no murmurs. + PVCs visible on bedside monitor, tachycardic rate 120. Peripheral pulses symmetric. RESPIRATORY/CHEST: Symmetric, unlabored respirations via mechanical vent. Clear to auscultation. Breath sounds equal bilaterally. GASTROINTESTINAL: Abdomen soft, and able to determine tenderness, nondistended. No hepato-splenomegaly, or palpable masses. Bowel sounds present. GENITOURINARY: Without palpable bladder distension. Griggs catheter in place. MUSCULOSKELETAL: Extremities without clubbing, cyanosis, or edema.No mottling or clubbing. NEUROLOGICAL: Opens eyes, initially seems to track examiner though does not do so consistently. Does not withdrawal to pain stimuli. Does not follow any commands (even when spoken in Lithuanian).+ Blinks to threat. PSYCHIATRIC: Unresponsive off sedation. . Diagnostic Tests Laboratory Laboratory Tests Test 06/14/16 06/14/16 06/15/16 06/15/16 16:40 19:52 04:35 20:15 Urine Total Volume 24 Hours 3400 ML Urine Total Protein 24 Hour 554 MG/24HR (0-150) Urine Immunofixation Sodium Level 139 MEQ/L 139 MEQ/L (136-145) (136-145) Potassium Level 3.9 MEQ/L 3.5 MEQ/L (3.5-5.1) (3.5-5.1) Chloride Level 105 MEQ/L 103 MEQ/L (98-107) (98-107) Carbon Dioxide Level 24.4 MEQ/L 24.0 MEQ/L (21.0-32.0) (21.0-32.0) Anion Gap 10 MEQ/L (5-15) 12 MEQ/L (5-15) Blood Urea Nitrogen 39 MG/DL (7-18) 40 MG/DL (7-18) Creatinine 1.42 MG/DL 1.27 MG/DL (0.50-1.00) (0.50-1.00) Estimat Glomerular Filtration 37 ML/MIN (>89) 42 ML/MIN (>89) Rate Random Glucose 246 MG/DL 271 MG/DL (74-106) (74-106) Calcium Level 8.1 MG/DL 8.0 MG/DL (8.5-10.1) (8.5-10.1) Magnesium Level 2.1 MG/DL (1.5-2.5) White Blood Count 10.9 TH/MM3 (4.0-11.0) Red Blood Count 4.73 MIL/MM3 (4.00-5.30) Hemoglobin 13.4 GM/DL (11.6-15.3) Hematocrit 41.8 % (35.0-46.0) Mean Corpuscular Volume 88.3 FL (80.0-100.0) Mean Corpuscular Hemoglobin 28.4 PG (27.0-34.0) Mean Corpuscular Hemoglobin 32.2 % Concent (32.0-36.0) Red Cell Distribution Width 23.4 % (11.6-17.2) Platelet Count 88 TH/MM3 (150-450) Mean Platelet Volume 9.4 FL (7.0-11.0) Vancomycin Level Trough 15.3 MCG/ML (5.0-10.0) Test 06/16/16 06/16/16 06/17/16 06/17/16 04:30 19:15 04:45 10:34 White Blood Count 10.2 TH/MM3 10.8 TH/MM3 (4.0-11.0) (4.0-11.0) Red Blood Count 5.23 MIL/MM3 5.07 MIL/MM3 (4.00-5.30) (4.00-5.30) Hemoglobin 14.9 GM/DL 14.2 GM/DL (11.6-15.3) (11.6-15.3) Hematocrit 45.7 % 44.8 % (35.0-46.0) (35.0-46.0) Mean Corpuscular Volume 87.3 FL 88.5 FL (80.0-100.0) (80.0-100.0) Mean Corpuscular Hemoglobin 28.4 PG 28.0 PG (27.0-34.0) (27.0-34.0) Mean Corpuscular Hemoglobin 32.5 % 31.7 % Concent (32.0-36.0) (32.0-36.0) Red Cell Distribution Width 22.9 % 23.4 % (11.6-17.2) (11.6-17.2) Platelet Count 88 TH/MM3 90 TH/MM3 (150-450) (150-450) Mean Platelet Volume 9.7 FL 10.4 FL (7.0-11.0) (7.0-11.0) Sodium Level 137 MEQ/L 142 MEQ/L (136-145) (136-145) Potassium Level 2.8 MEQ/L 4.0 MEQ/L 3.5 MEQ/L (3.5-5.1) (3.5-5.1) (3.5-5.1) Chloride Level 94 MEQ/L 101 MEQ/L (98-107) (98-107) Carbon Dioxide Level 33.3 MEQ/L 32.8 MEQ/L (21.0-32.0) (21.0-32.0) Anion Gap 10 MEQ/L (5-15) 8 MEQ/L (5-15) Blood Urea Nitrogen 35 MG/DL (7-18) 29 MG/DL (7-18) Creatinine 1.06 MG/DL 1.09 MG/DL (0.50-1.00) (0.50-1.00) Estimat Glomerular Filtration 51 ML/MIN (>89) 50 ML/MIN (>89) Rate Random Glucose 203 MG/DL 255 MG/DL (74-106) (74-106) Calcium Level 8.8 MG/DL 8.2 MG/DL (8.5-10.1) (8.5-10.1) Phosphorus Level 2.0 MG/DL 2.5 MG/DL (2.5-4.9) (2.5-4.9) Magnesium Level 1.7 MG/DL 1.8 MG/DL (1.5-2.5) (1.5-2.5) Prothrombin Time 17.4 SEC 16.4 SEC (9.8-11.6) (9.8-11.6) Prothromb Time International 1.5 RATIO 1.5 RATIO Ratio Total Bilirubin 2.5 MG/DL 2.0 MG/DL (0.2-1.0) (0.2-1.0) Direct Bilirubin 1.6 MG/DL 1.2 MG/DL (0.0-0.2) (0.0-0.2) Indirect Bilirubin 0.9 MG/DL 0.8 MG/DL (0.0-0.8) (0.0-0.8) Aspartate Amino Transf 97 U/L (15-37) 75 U/L (15-37) (AST/SGOT) Alanine Aminotransferase 37 U/L (10-53) 35 U/L (10-53) (ALT/SGPT) Alkaline Phosphatase 240 U/L 208 U/L (45-117) (45-117) Ammonia 39 MCMOL/L (11-32) Total Protein 6.9 GM/DL 6.6 GM/DL (6.4-8.2) (6.4-8.2) Albumin 1.8 GM/DL 1.8 GM/DL (3.4-5.0) (3.4-5.0) Lactic Acid Level 2.4 mmol/L (0.4-2.0) Result Diagram: 06/17/16 0445 06/17/16 0445 Microbiology Microbiology Date/Time Procedure Status Source Growth 06/17/16 09:15 Gram Stain Received Sputum Endotracheal Pending 06/17/16 09:15 Sputum Culture Received Sputum Endotracheal Pending 06/17/16 09:15 Urine Culture Received Urine Catheterized Urine Pending 06/17/16 10:23 Aerobic Blood Culture Received Blood Peripheral Pending 06/17/16 10:23 Anaerobic Blood Culture Received Blood Peripheral Pending 06/17/16 10:34 Aerobic Blood Culture Received Blood Peripheral Pending 06/17/16 10:34 Anaerobic Blood Culture Received Blood Peripheral Pending . Imaging Last Impressions Head CT 06/16/16 0000 Signed Impressions: Service Date/Time: Thursday, June 16, 2016 22:09 - CONCLUSION: 1. No acute hemorrhage or mass effect. 2. Air-fluid levels in both maxillary sinuses right greater than left most consistent with acute sinusitis. Jeremiah Morton MD Chest X-Ray 06/16/16 0000 Signed Impressions: Service Date/Time: Thursday, June 16, 2016 14:37 - CONCLUSION: Lines and tubes as noted above. Improved aeration of the lungs. Anjelica Wilson MD Abdomen/Pelvis CT 06/12/16 0000 Signed Impressions: Service Date/Time: Monday, June 13, 2016 04:47 - CONCLUSION: Generalized anasarca. Consolidation in the dependent lower lungs. Marco Patel MD . Procedures * 06/12/16 - intubated . Assessment and Plan Disease Oriented Problem List: (1) Cardiomyopathy (2) Acute respiratory failure with hypoxia (3) Pneumonia (4) CHF exacerbation (5) CHF (congestive heart failure) (6) E-coli UTI (7) Acute on chronic renal insufficiency (8) Thrombocytopenia (9) Hyperkalemia (10) Asthma (11) DM (diabetes mellitus) (12) HIV (human immunodeficiency virus infection) (13) Diabetes Symptom Scale: (1) Dyspnea 0-10 Scale: Unable to quantify (2) Encephalopathy 0-10 Scale: Unable to quantify Pertinent Non-Medical Issues Psychosocial: Spiritual: Legal: pt not capacitated/encephalopathic currently unable to participate, not clear if she will regain ability to participate. per [place] statutes legal decision making would fall to majority of adult children. She has 2 (?) adult children. Ethical issues impacting care: Important Contacts Daughter Marva Berrios [phone] . Prognosis This patient was admitted for shortness of breath, with known history of CHF, with acute on chronic renal insufficiency. EF 1015%. Even with ongoing aggressive interventions given severity of cardiomyopathy patient prognosis is poor. She remains very high risk for clinical deterioration, and complications related to underlying cardiac disease. Limited life expectancy. Appropriate for hospice if goals are compatible. . Code Status: No Code Plan * Legal decision maker: pt not capacitated/encephalopathic currently unable to participate, not clear if she will regain ability to participate. According to [place] statutes legal decision making would fall to majority of adult children. She has 7 adult children. I have personally spoke with 4 children who wish to participate in health care decisions: (Marva Wall (in consult room) & Daya Choe (via telephone). No contact information for Tari who has been estranged. Keron recent overdose and health issues impacting his ability to participate. Family will attempt to reach Esau and have him call palliative care. * Goals: Continue aggressive care short of NO CODE and deactivation of AICD. Anticipate arrival of Milan from [place] late tonight (will be here to visit after visiting hours). Will meet with family again 06/18/16. * NO CODE * Order written for deactivation of defibrillator. Family will bring Pacemaker/ AICD booklet to determine which company to call for deactivation. * SYMPTOMS: --dyspnea: Emergently intubated 06/12; remains on mechanical vent not tolerating CPAP trials. History of asthma, CHF EF 1015 percent --Encephalopathy: Emergently intubated for respiratory failure,+ acute on chronic renal failure; ? Metabolic encephalopathy, remaining minimally responsive even off of sedation * Palliative care will continue to follow during hospital course as condition evolves, to assist patient/decision-maker with understanding of medical conditions, weighing benefits/burdens of treatment options, for clarification of goals of treatment. Additionally will assist with any symptoms of palliative concern. . Attestation To help prompt me to consider important information that might be impacting today's encounter and assessment, information from prior notes written by myself or my colleagues may have been "brought forward" into today's note. My signature on this note, however, is an attestation that I personally performed the exam, history, and/or decision-making noted today, and, unless otherwise indicated, the interactions with patient, family, and staff as well as the review of records all occurred today. I also attest that the listed assessment and stated plan reflect my best clinical judgment today based on the combination of historical information, prior notes, and today's exam/ interactions. When time spent is documented, it refers only to time spent today by the signer, or if indicated, combined time spent today by collaborating physician/nurse practitioner. DHRUV FORREST Jun 17, 2016 12:05
[2016-06-17] MEDS ORDERED: METOPROLOL TARTRATE 5 MG/5 ML VIAL IV PUSH PRN (15:00)
[2016-06-17 16:37] LABS: BLOOD GAS BASE EXCESS 6.8 mmol/L (-2-2); BLOOD GAS CARBOXYHEMOGLOBIN 1.8 % (0-4); BLOOD GAS HCO3 30 mmol/L (22-26); BLOOD GAS O2 HGB SATURATION 96 % (90-100); BLOOD GAS OXYGEN CONTENT 19.8 Vol % (12.0-20.0); BLOOD GAS PCO2 35 mmHg (38-42); BLOOD GAS PO2 123 mmHg (61-120); BLOOD GAS TOTAL HGB 14.5 G/DL (12.0-16.0); CRITICAL VALUE YES; DRAW SITE RT RADIAL; FIO2 30 %; NUMBER OF ARTERIAL PUNCTURES 1; OXYGEN DEVICE VENTILATOR; STAT YES; TEMP CORR TO 98.6; ULNAR PULSE PRESENT; VENT SETTINGS AC/16/450/PEEP5
--- NOTE | 2016-06-17 16:41 | HHI.CCPN ---
Subjective Remarks/Hospital Course Hospital Course: 71-year-old female with a history of hypertension, hyperlipidemia, diabetes, asthma, CHF, pacemaker with AICD, HIV, presented to the ED with progressive SOB. The patient is Ukrainian-speaking only and daughter is in the room for interpretation. The patient complained of a productive cough for approximately 1 week. The patient complained of chest tightness in conjunction with her shortness of breath. Note the patient was recently hospitalized 05/11/16, for similar presentation of CHF exacerbation, and abdominal pain. At that time the patient had an echo performed which revealed an ejection fraction of 15%. The patient had complained of loose yellow stools, and abdominal pain. Critical care medicine was consulted for treatment and management. Upon entering the ED, the patient was noted to be severely dyspneic, currently on 4 L nasal cannula, the patient was changed to a facemask at 10 L/m, the patient continued to have O2 desaturation, O2 sats in the 80s. I discussed with the patient impending need of required intubation, for acute respiratory distress. The patient stated she wanted to be intubated. I discussed with the daughter the risk and benefits ,the patient's respiratory status and the need for intubation. The patient was emergently intubated in the ED without difficulty. The patient was then placed on mechanical ventilation at 100% and then subsequently weaned to FiO2 of 50%. Subjective: 06/14: given 2 doses of lasix 100mg iv yesterday for volume overloaded. echo ordered and pending. pneumococcal urinary antigen +, blood growing G+, urine growing G- rods. speciation pending. still intubated. awake this AM, but apneic on SBT. not on pathway. 06/15: 2 more doses of lasix 100mg yesterday with subsequent diuresis. cr improving. more awake today. still failed SBT for tachypnea and distress. not on pathway. 06/16: Patient has decreased responsiveness. Off sedation medications, Precedex and fentanyl for approximately 10 hours. Patient failed CPAP trials today. 06/17: Tmax 101.5. Patient currently on cefepime and azithromycin added to antibiotic regimen. Patient continues to have decreased responsiveness, CT brain obtained, unremarkable, ammonia level 39. Lactulose added to medication regimen. Palliative medicine was consulted, discussion with family, she was made DNR status today. Objective Vital Signs Date Time Temp Pulse Resp B/P Pulse Ox O2 Delivery O2 Flow Rate FiO2 06/17/16 15:44 98 30 06/17/16 14:00 105 06/17/16 12:00 99.7 16 116/76 Intake and Output 06/16/16 06/16/16 06/17/16 08:00 16:00 00:00 Intake Total 595 ml 784 ml 1086 ml Output Total 3100.0 ml 1250 ml 350 ml Balance -2505.0 ml -466 ml 736 ml Result Diagram: 06/17/1644406/17/16444 Objective Remarks GENERAL: Critically ill-appearing female, lying in bed. intubated.Unresponsive HEENT: NCAT. pupils equal and round. no scleral icterus. mucous membranes moist. NECK: Trachea midline.No JVD. Orotracheally intubated. CARDIOVASCULAR: Normal rate, regular rhythm. RESPIRATORY: Mechanical ventilation Rales noted in bases B/L. Breath sounds equal bilaterally. GASTROINTESTINAL: Abdomen soft, obese non-tender, nondistended. Well-healed old abdominal scar, right side of abdomen. MUSCULOSKELETAL: Extremities without clubbing, cyanosis, or edema. No obvious deformities. NEUROLOGICAL: Eyes open spontaneously. Not following any commands Urinary Catheter: Yes Griggs insert reason: Measure Accurate Output Date of Insertion: Jun 13, 2016 A/P Assessment and Plan This is a critically ill 71-year-old female that presents with CHF exacerbation requiring emergent intubation, hyperkalemia, sepsis from likely pneumococcal pneumonia and gram negative UTI .Her ejection fraction is 15%, currently she remains tachycardic and clinically volume overloaded. The patient's prognosis is guarded. Her family does not have a clear understanding of how chronically and acutely critically ill she is. I have attempted daily to explain this, and I do not think they adequately comprehend this. I will consult palliative care to help address goals of care.She remains critically ill at this point, in multi -organ system dysfunction. Neurologic: Pain-abdominal Toxic encephalopathy -Patient is intubated and nonresponsive off sedation -Maintain RASS-2 -CT brain 06/16- unremarkable, no acute hemorrhage -Ammonia level 39, add Lactulose BID Respiratory: Acute hypoxic respiratory failure Asthma Pneumococcal pneumonia -Mechanical ventilation-PRVC ,FiO2.40, -Scheduled bronchodilators every 4 hours, q 2h prn -Ventilator bundle -Sedation holiday -Maintain head of the bed 30 Cardiovascular: CHF exacerbation Cardiomyopathy Pacer/AICD Sinus Tachycardia -ECHO 05/11/16- EF 15%, No RWMA,MV moderate regurgitation, TV moderate regurgitation, PASP 62 -Metoprolol 2.5 mg every 6 hours when necessary HR >100 Renal: Acute on chronic kidney injury Acute intravascular volume overload -Nephrology following: Dr. Larios. signed off 06/16 -continue daily BMP- Creatinine 1.09 -continue Griggs -- Strict I/Os FEN/GI: Hyperkalemia-resolved Hyponatremia-resolved Abdominal pain Hyperlipidemia Severe protein calorie malnutrition -Continue Suplena@40cc/hr -On hold atorvastatin -Elevated alk phosphatase . Heme/ID: Sepsis HIV previously on HAART therapy Pneumococcal pneumonia Hepatitis C Ecoli UTI -Monitor CBC . -continue cefepime, azithromycin -d/c vancomycin 06/15 -Obtain CD 4 levels-pending, GOMEZ titer positive - blood culture 06/11 growing staph epi, likely contaminant -Obtain random cortisol level prior to dosing , Methylprednisolone 40 mg twice a day Endocrine: Diabetes mellitus -- SSI, q6h, high dose Prophylaxis: GI Prophylaxis Protonix DVT Prophylaxis -- SCDs Hold pharmacological prophylaxis patient on Xarelto, and Plavix per home records. Elevated INR 1.5 Lines: Peripheral IV Dispo: I updated daughters regarding patient's medical status, requested palliative medicine for discussion for goals of care. The patient has a poor prognosis at this time. This patient remains critically ill with one or more organ systems which are or may become a threat to life. I have spent in excess of 54 minutes discontinuously in the care and management of this patient. This time is exclusive of procedures, and includes, but is not limited to, evaluation of the patient, review of the medical record, discussions with family, consultants, nursing staff, or respiratory therapy, and documentation in the medical record. Palliative care consulted, family meeting, the patient was made DNR today. Physician Flor Zhao MD Jun 17, 2016 16:41
[2016-06-17] MEDS ORDERED: AZITHROMYCIN INJ 500 MG in SODIUM CHLOR 0.9% 250 ML INJ 250 ML IV SCH (17:00)
[2016-06-17] MEDS: LACTULOSE SYRUP 20 GM/30 ML CUP PO SCH ×2 (17:20→20:29)
[2016-06-17] MEDS: methylPREDNISolone SOD SUCC 40 MG/1 ML VIAL IV SCH (17:21)
[2016-06-17] MEDS ORDERED: PHENYLEPHRINE INJ 160 MG in DEXTROSE 5% IN WATE 500 ML INJ 484 ML IV PRN ×2 (21:00)
[2016-06-17] MEDS ORDERED: TERBUTALINE INJ 1 MG/ML AMP SQ PRN (21:00)
[2016-06-17] MEDS: METOPROLOL TARTRATE 25 MG TAB PO PRN (21:17)
[2016-06-18] VITALS (13 sets, daily range): BP systolic 110–116; BP diastolic 70–74; PULSE 93–126; RESP 14; TEMP 99–100.5; O2SAT 94–98
[2016-06-18] MEDS: CHLORHEXIDINE GLUCONATE 2 % 1 PACK (2 CLOTHS) TOP SCH (00:25)
[2016-06-18] MEDS: INSULIN NovoLIN REGULAR SUPPLEMENTAL SCALE SQ SCH ×2 (00:25→05:11)
[2016-06-18] MEDS: ACETAMINOPHEN 325 MG TAB PO PRN (02:55)
[2016-06-18] MEDS: METOPROLOL TARTRATE 25 MG TAB PO PRN (03:31)
[2016-06-18] MEDS: methylPREDNISolone SOD SUCC 40 MG/1 ML VIAL IV SCH (05:10)
[2016-06-18 05:24] LABS: MEAN CELL VOLUME 90.3 FL (80.0-100.0); MEAN CORPUSCULAR HEMOGLOBIN 27.7 PG (27.0-34.0); MEAN CORPUSCULAR HGB CONC 30.6 % (32.0-36.0); PLATELET COUNT 138 TH/MM3 (150-450); RED CELL DISTRIBUTION WIDTH 23.8 % (11.6-17.2); WHITE BLOOD COUNT 11.6 TH/MM3 (4.0-11.0)
[2016-06-18 05:37] LABS: ALKALINE PHOSPHATASE 310 U/L (45-117); ALT (GPT) 58 U/L (10-53); ANION GAP 11 MEQ/L (5-15); AST (GOT) 267 U/L (15-37); BICARBONATE 27.3 MEQ/L (21.0-32.0); BLOOD UREA NITROGEN 47 MG/DL (7-18); CHLORIDE 99 MEQ/L (98-107); GLOMERULAR FILTRATION RATE 37 ML/MIN (>89); MAGNESIUM 2.1 MG/DL (1.5-2.5); POTASSIUM 3.9 MEQ/L (3.5-5.1); SODIUM (NA) 137 MEQ/L (136-145)
--- NOTE | 2016-06-18 05:59 | RADRPT ---
EXAM DATE/TIME: 06/18/2016 05:06 [facility] COMPARISON: CHEST SINGLE AP, June 16, 2016, 14:37. INDICATIONS : Respiratory distress. MEDICAL HISTORY : Hypertension. Hypercholesterolemia. Congestive heart failure. Deep venous thrombosis. Diabetes. HIV. SURGICAL HISTORY : Pacemaker. ENCOUNTER: Subsequent ACUITY: 1 week PAIN SCORE: Non-responsive. LOCATION: Bilateral chest FINDINGS: A single view of the chest demonstrates minimal left retrocardiac density. Endotracheal tube with tip 1 cm above the julian. Nasogastric tube with tip likely in stomach. Pacer wire again seen. Heart mil dly enlarged. The cardiomediastinal contours are unremarkable. Osseous structures are intact. CONCLUSION: 1. Minimal left retrocardiac density. 2. Endotracheal tube tip 1 cm above the julian. Herb Alanis MD on June 18, 2016 at 5:55 Board Certified Radiologist. This report was verified electronically.
[2016-06-18 06:39] LABS: REVIEW FLAG FINAL
[2016-06-18] MEDS ORDERED: LACTATED RINGER'S 1000 ML INJ 1,000 ML IV SCH (07:45)
[2016-06-18] MEDS: PANTOPRAZOLE SODIUM 40 MG VIAL IV SCH (08:17)
[2016-06-18] MEDS: CHLORHEXIDINE 0.12% (ORAL KIT) 15 ML CUP MT SCH (08:17)
[2016-06-18] MEDS: SODIUM CHLORIDE 0.9% FLUSH 5 ML FLUSH IV FLUSH SCH (08:18)
[2016-06-18] MEDS: LACTULOSE SYRUP 20 GM/30 ML CUP PO SCH ×3 (08:18→14:38)
[2016-06-18] MEDS: DOCUSATE SODIUM 100 MG/10 ML UDC G-TUBE SCH (08:26)
[2016-06-18] MEDS ORDERED: METOPROLOL TARTRATE 25 MG TAB PO SCH (09:00)
[2016-06-18] MEDS ORDERED: CLOPIDOGREL 75 MG TAB PO SCH (09:00)
[2016-06-18] MEDS ORDERED: INSULIN DETEMIR 100 UNITS/ML VIAL SQ SCH (09:00)
[2016-06-18] MEDS ORDERED: RIVAROXABAN 20 MG TAB PO SCH (09:00)
[2016-06-18] MEDS ORDERED: PILL SPLITTER OTHER PRN (09:15)
[2016-06-18] MEDS: CEFEPIME INJ 2,000 MG in SODIUM CHLORIDE 0.9% INJ 100 ML IV SCH (09:40)
--- NOTE | 2016-06-18 09:53 | HHI.CCPN ---
Subjective Remarks/Hospital Course Hospital Course: 71-year-old female with a history of hypertension, hyperlipidemia, diabetes, asthma, CHF, pacemaker with AICD, HIV, presented to the ED with progressive SOB. The patient is Congolese-speaking only and daughter is in the room for interpretation. The patient complained of a productive cough for approximately 1 week. The patient complained of chest tightness in conjunction with her shortness of breath. Note the patient was recently hospitalized 05/11/16, for similar presentation of CHF exacerbation, and abdominal pain. At that time the patient had an echo performed which revealed an ejection fraction of 15%. The patient had complained of loose yellow stools, and abdominal pain. Critical care medicine was consulted for treatment and management. Upon entering the ED, the patient was noted to be severely dyspneic, currently on 4 L nasal cannula, the patient was changed to a facemask at 10 L/m, the patient continued to have O2 desaturation, O2 sats in the 80s. I discussed with the patient impending need of required intubation, for acute respiratory distress. The patient stated she wanted to be intubated. I discussed with the daughter the risk and benefits ,the patient's respiratory status and the need for intubation. The patient was emergently intubated in the ED without difficulty. The patient was then placed on mechanical ventilation at 100% and then subsequently weaned to FiO2 of 50%. Subjective: 06/14: given 2 doses of lasix 100mg iv yesterday for volume overloaded. echo ordered and pending. pneumococcal urinary antigen +, blood growing G+, urine growing G- rods. speciation pending. still intubated. awake this AM, but apneic on SBT. not on pathway. 06/15: 2 more doses of lasix 100mg yesterday with subsequent diuresis. cr improving. more awake today. still failed SBT for tachypnea and distress. not on pathway. 06/16: Patient has decreased responsiveness. Off sedation medications, Precedex and fentanyl for approximately 10 hours. Patient failed CPAP trials today. 06/17: Tmax 101.5. Patient currently on cefepime and azithromycin added to antibiotic regimen. Patient continues to have decreased responsiveness, CT brain obtained, unremarkable, ammonia level 39. Lactulose added to medication regimen. Palliative medicine was consulted, discussion with family, she was made DNR status today. 06/18: Tmax 103.0. Antibiotics were changed, steroids added to medication regimen yesterday. Concern for altered mental status and chronic sinusitis, with indeterminate immunocompetent status, ID consulted appreciate recommendations.The patient mentation slightly improved, awake, patient is Congolese-speaking only following commands given by daughters. Patient's INR, 1.5 , no intracranial bleed per CT, will resume Xarelto and Plavix today. Overnight patient was hyperglycemic, patient converted to Levemir BID.Ammonia level increased despite institution of Lactulose BID, will increase frequency. Liver US pending today. Objective Vital Signs Date Time Temp Pulse Resp B/P Pulse Ox O2 Delivery O2 Flow Rate FiO2 06/18/16 08:12 98 30 06/18/16 06:00 124 06/18/16 04:00 100.4 14 110/74 Intake and Output 06/17/16 06/17/16 06/18/16 08:00 16:00 00:00 Intake Total 560 ml 581 ml 1182 ml Output Total 350.0 ml 325 ml 200 ml Balance 210.0 ml 256 ml 982 ml Result Diagram: 06/18/16 0505 06/18/16 0505 Other Results Laboratory Tests Test 06/17/16 16:27 Blood Gas Puncture Site RT RADIAL Blood Gas Patient Temperature 98.6 Blood Gas HCO3 30 mmol/L (22-26) Blood Gas Base Excess 6.8 mmol/L (-2-2) Blood Gas Oxygen Saturation 96 % (90-100) Arterial Blood pH 7.54 (7.380-7.420) Arterial Blood Partial 35 mmHg (38-42) Pressure CO2 Arterial Blood Partial 123 mmHg Pressure O2 (61-120) Arterial Blood Oxygen Content 19.8 Vol % (12.0-20.0) Arterial Blood 1.8 % (0-4) Carboxyhemoglobin Arterial Blood Methemoglobin 1.0 % (0-2) Blood Gas Hemoglobin 14.5 G/DL (12.0-16.0) Oxygen Delivery Device VENTILATOR Blood Gas Ventilator Setting AC/16/450/PEEP5 Blood Gas Inspired Oxygen 30 % Imaging Last 24 hours Impressions Chest X-Ray 06/18/16 0600 Signed Impressions: Service Date/Time: Saturday, June 18, 2016 05:06 - CONCLUSION: 1. Minimal left retrocardiac density. 2. Endotracheal tube tip 1 cm above the julian. Herb Alanis MD Objective Remarks GENERAL: Critically ill-appearing female, lying in bed. intubated. Awake HEENT: NCAT. pupils equal and round. no scleral icterus. mucous membranes moist. NECK: Trachea midline.No JVD. Orotracheally intubated. CARDIOVASCULAR: Normal rate, regular rhythm. RESPIRATORY: Mechanical ventilation CTAB. Breath sounds equal bilaterally. GASTROINTESTINAL: Abdomen soft, obese non-tender, nondistended, normoactive bowel sounds. Well-healed old abdominal scar, right side of abdomen. MUSCULOSKELETAL: Extremities without clubbing, cyanosis, or edema. No obvious deformities. NEUROLOGICAL: Awake, E4V1M5, GCS10T following any commands. Urinary Catheter: Yes Date of Insertion: Jun 13, 2016 Vascular Central Line Catheter: No A/P Assessment and Plan This is a critically ill 71-year-old female that presents with CHF exacerbation requiring emergent intubation, hyperkalemia, sepsis from likely pneumococcal pneumonia and gram negative UTI .Her ejection fraction is 15%, currently she remains tachycardic and clinically volume overloaded. The patient's prognosis is guarded. Her family does not have a clear understanding of how chronically and acutely critically ill she is. I have attempted daily to explain this, and I do not think they adequately comprehend this. I will consult palliative care to help address goals of care.She remains critically ill at this point, in multi -organ system dysfunction. Neurologic: Pain-abdominal Toxic encephalopathy -Patient is intubated, Fentanyl infusion 100 mcgs for ventilator synchrony -Maintain RASS-2 -CT brain 06/16- unremarkable, no acute hemorrhage -Ammonia level 51, add Lactulose QID Respiratory: Acute hypoxic respiratory failure Asthma Pneumococcal pneumonia -Mechanical ventilation-PRVC ,FiO2.40, -Scheduled bronchodilators every 6 hours, q 2h prn -Ventilator bundle -Sedation holiday -Maintain head of the bed 30 -CPAP trials today Cardiovascular: CHF exacerbation Cardiomyopathy Pacer/AICD-deactivated 06/17 Sinus Tachycardia H/O DVT -ECHO 05/11/16- EF 15%, No RWMA,MV moderate regurgitation, TV moderate regurgitation, PASP 62 -Metoprolol 12.5mg BID, with PRN dosing for HR > 100 -INR 1.5, Xarelto, Plavix resumed Renal: Acute on chronic kidney injury Acute intravascular volume overload -Nephrology following: Dr. Larios. signed off 06/16 -Monitor BMP 1.09--> 1.4 -continue Griggs, low UOP, Lasix 20 mg x 1 dose -- Strict I/Os FEN/GI: Hyperkalemia-resolved Hyponatremia-resolved Abdominal pain Hyperlipidemia Severe protein calorie malnutrition Hepatitis C - Pt NPO today, for Liver US -Monitor LFT's -Resume Suplena@40cc/hr post liver US -On hold , atorvastatin -INR 1.5 . Heme/ID: Sepsis HIV previously on HAART therapy Pneumococcal pneumonia Hepatitis C Ecoli UTI -Monitor CBC -continue cefepime(day3), azithromycin(day2) -d/c vancomycin 06/15(2 doses) -Obtain CD 4 levels-pending, GOMEZ titer positive - blood culture 06/11 growing staph epi, likely contaminant -Methylprednisolone 40 mg twice a day( begun 06/17) -ID consulted- follow up recommendations Endocrine: Diabetes mellitus Hyperglycemia -- SSI, q4h, low dose - Bld glucose 430--> 360, Levimir 8 units BID MSK: -PT evaluation and treat, optional maintenance -Ultrasound bilateral lower extremities Prophylaxis: GI Prophylaxis Protonix DVT Prophylaxis -- SCDs, Xarelto,Plavix resumed 06/18 Lines: Peripheral IV x 2 Dispo: I updated daughters regarding patient's medical status, requested palliative medicine for discussion for goals of care. They are aware of the patient's poor prognosis secondary to multiple comorbidities This patient remains critically ill with one or more organ systems which are or may become a threat to life. I have spent in excess of 57minutes discontinuously in the care and management of this patient. This time is exclusive of procedures, and includes, but is not limited to, evaluation of the patient, review of the medical record, discussions with family, consultants, nursing staff, or respiratory therapy, and documentation in the medical record. Physician Flor Zhao MD Jun 18, 2016 09:53
[2016-06-18] MEDS ORDERED: GLUCAGON 1 MG/ML VIAL OTHER PRN (10:00)
[2016-06-18] MEDS ORDERED: RESP: ALBUTEROL 2.5 MG/IPRATROPIUM 0.5 MG NEB (SCH) NEB (10:00)
[2016-06-18 11:53] LABS: BLOOD GAS BASE EXCESS 2.2 mmol/L (-2-2); BLOOD GAS CARBOXYHEMOGLOBIN 1.7 % (0-4); BLOOD GAS HCO3 26 mmol/L (22-26); BLOOD GAS O2 HGB SATURATION 94 % (90-100); BLOOD GAS OXYGEN CONTENT 20.1 Vol % (12.0-20.0); BLOOD GAS PCO2 41 mmHg (38-42); BLOOD GAS PO2 93 mmHg (61-120); BLOOD GAS TOTAL HGB 15.2 G/DL (12.0-16.0); CRITICAL VALUE NO; OXYGEN DEVICE VENTILATOR; TEMP CORR TO 98.6
[2016-06-18 11:54] LABS: DRAW SITE RT RADIAL; FIO2 30 %; NUMBER OF ARTERIAL PUNCTURES 1; STAT NO; ULNAR PULSE PRESENT; VENT SETTINGS CPAP+5/PS+15
[2016-06-18] MEDS ORDERED: INSULIN NovoLIN REGULAR SUPPLEMENTAL SCALE SQ SCH (12:00)
--- NOTE | 2016-06-18 13:36 | RADRPT ---
EXAM DATE/TIME: 06/18/2016 12:45 [facility] COMPARISON: US LEG BILATERAL VENOUS DOPPLER, May 11, 2016, 19:55. INDICATIONS : Bilateral leg edema. MEDICAL HISTORY : Hypercholesterolemia. Hypertension. Myocardial infarction. Congestive heart failure. HIV. Diabetes. D eep vein thrombosis. SURGICAL HISTORY : Pacemaker.Cholecystectomy. ENCOUNTER: Subsequent ACUITY: 1 day PAIN SCORE: Non-responsive LOCATION: Bilateral legs. TECHNIQUE: Venous ultrasound of the left and right leg was performed from the inguinal ligament to the proximal calf. Real-time, color Doppler and spectral tracing, compression and augmentation techniques were us ed. FINDINGS: RIGHT LEG: Nonocclusive deep venous thrombus is noted within the right common femoral and proximal superficial f emoral veins. There is normal color flow within the mid and distal superficial femoral, popliteal, pe roneal and posterior tibial veins. LEFT LEG: There is normal compressibility of the deep venous system from the inguinal region to the proximal ca lf. No echogenic clot is seen in the lumen of the common femoral, femoral, popliteal, and posterior tibial veins. There is a normal response of the venous system to proximal and distal augmentation an d respiration. CONCLUSION: 1. Nonocclusive deep venous thrombus within the right common femoral and proximal superficial femoral veins. 2. No evidence of deep venous thrombosis within the left lower extremity. Alphonse Stockton MD on June 18, 2016 at 13:33 Board Certified Radiologist. This report was verified electronically.
--- NOTE | 2016-06-18 13:49 | RADRPT ---
EXAM DATE/TIME: 06/18/2016 12:32 [facility] COMPARISON: CT ABDOMEN & PELVIS W/O CONTRAST, June 13, 2016, 4:47. INDICATIONS : Hepatitis C. MEDICAL HISTORY : Hypertension. Myocardial infarction. Hypercholesterolemia. Congestive heart failure. HIV. Diabetes. D eep vein thrombosis. SURGICAL HISTORY : Pacemaker. Cholecystectomy. ENCOUNTER: Initial ACUITY: 1 day PAIN SCORE: Nonresponsive. LOCATION: Abdomen. MEASUREMENTS: LIVER: 12.8 cm length COMMON DUCT: 9 mm RIGHT KIDNEY: 10.3 x 4.6 x 3.9 cm SPLEEN: 8.3 cm length FINDINGS: Bilateral small pleural effusions. Trace free fluid is identified within Mantilla's pouch. LIVER: Normal echotexture without focal lesion or ductal dilatation. COMMON DUCT: No intraluminal mass or stone visualized. GALLBLADDER: Surgically absent. PANCREAS: The visualized portions are within normal limits. RIGHT KIDNEY: No hydronephrosis, stone or mass. SPLEEN: No focal lesion. CONCLUSION: Bilateral small pleural effusions and trace free fluid identified within the abdomen. Exam is otherwi se unremarkable.. Anjelica Wilson MD on June 18, 2016 at 13:45 Board Certified Radiologist. This report was verified electronically.
--- NOTE | 2016-06-18 13:55 | MB ---
cc: XENIA SALINAS MD, FRANKLYN F. MD DATE OF CONSULTATION: 06/18/2016 REASON FOR CONSULTATION HIV positive patient, also with hepatitis C, pneumococcal pneumonia, chronic sinusitis and altered mental status. HISTORY OF PRESENT ILLNESS This is a 71-year-old female who presented to the emergency department on 06/12/2016 with respiratory distress. The patient reportedly had productive cough with clear sputum for about a week and subjective fever and chills. She is now intubated and on the ventilator. Information was obtained from the patient's daughter, Mae, and also from the medical record. The patient recently moved to [place] from [place] in early April. She was being treated for acute bronchitis with antibiotics. The daughter notes that she did not quite finish the antibiotic course then. She had problems with congestive heart failure and the daughter reports that she was having trouble with fluid overload, but she did not want to take the Lasix and therefore she continued to have some degree of fluid buildup in her legs and some difficulty breathing. The patient has HIV disease. Her daughter notes that she has been positive for about 19 years and has been on HAART therapy and has been taking it regularly. The daughter reports that her last CD4 count was 220, measured about a month ago. She saw an HIV infectious disease specialist prior to coming down to [place] in April. She moved to [place] to live with her youngest daughter. The patient was noted to have decreased mental status after she was admitted. She was intubated because of respiratory failure. She remains on the ventilator. The patient was noted to have decreased mental status over the past couple of days and was not responding or waking up. However, today she is noted to be more responsive and she opens her eyes and squeezes with her left hand. She did move her feet to commands during my evaluation. The patient is only Citizen [place]-speaking and her daughter is in the room and able to interpret for me and ask the patient questions to evaluate her neurological status. The patient had an echocardiogram which showed ejection fraction of 10-15%. On admission she had a temperature of 97.8 degrees. Her temperature started rising on 06/14/2016 to 101.3 degrees and then subsequently 102.6 degrees last night, with intermittent fevers. On admission she had an elevated heart rate and also was noted to have acute renal failure, although she does have some component of chronic renal insufficiency. She has diabetes and is known to have diabetic retinopathy and also diabetic neuropathy. The cultures taken to data show E. coli in the urine from admission. She also had positive pneumococcal antigen in the urine. Sputum culture showed heavy growth of normal respiratory tiesha. Blood cultures have no growth. A repeat urine culture on 06/17/2016 has no growth. She is currently on IV antibiotics. She was started on methylprednisolone yesterday. The radiographic studies revealed no acute hemorrhage or mass effect on CT scan of the brain. Air-fluid levels in both maxillary sinuses consistent with acute sinusitis was noted. CT scan of the abdomen revealed generalized anasarca. Chest x-ray on admission showed mild failure. Chest x-ray today shows minimal left retrocardiac density. The latest temperature is 99 degrees. PAST MEDICAL HISTORY 1. HIV. 2. Hypertension. 3. Diabetes mellitus. 4. Diabetic retinopathy. 5. Diabetic neuropathy. 6. Congestive heart failure. 7. History of coronary stents. 8. The defibrillator has been deactivated since the patient has been made DNR. 9. Hepatitis C. 10. History of congestive heart failure. 11. Cholecystectomy. 12. Eye surgery. ALLERGIES No known drug allergies. MEDICATIONS 1. Insulin. 2. Lopressor. 3. Lactulose. 4. Plavix. 5. Xarelto. 6. Azithromycin. 7. Cefepime. 8. Methylprednisolone. 9. Protonix. 10. Colace. 11. Tylenol. SOCIAL HISTORY The patient lives with her youngest daughter, recently moved to [place] from [place]. No tobacco use. No alcohol use. No illicit drugs. FAMILY HISTORY Noncontributory. REVIEW OF SYSTEMS Unable to obtain. PHYSICAL EXAMINATION GENERAL: This is a thin female in no acute distress. She is awake on the ventilator and appears to follow commands. VITAL SIGNS: Temperature 99 degrees, BP 111/72, heart rate 122, respirations per the ventilator. HEENT: Head is atraumatic. Extraocular movements unable to fully assess but grossly appear intact. No icterus. No conjunctival erythema. The conjunctiva appears pale. Oropharynx is intubated. NECK: No adenopathy or swelling. LUNGS: Rhonchi at the right base. HEART: Normal S1 and S2, with a systolic murmur at the left sternal border. ABDOMEN: Bowel sounds present. Soft. No tenderness appreciated. RECTAL: Not performed. EXTREMITIES: No clubbing, cyanosis or edema. The skin of the feet have chronic dry scaly patches. NEUROLOGIC: Unable to fully assess. PSYCHIATRIC: Unable to fully assess. LABORATORY DATA WBC 11.6, platelet count 138, hemoglobin 14.4. Creatinine 1.40, BUN 47, sodium 137, AST 267, ALT 58, alk phos 310, estimated GFR 37. CD4 count pending. IMPRESSION 1. Sepsis, likely arising from pneumococcal pneumonia in a patient with symptoms suggesting upper respiratory infection and also sinusitis. 2. Pneumococcal pneumonia. 3. HIV. 4. Encephalopathy, likely related to sepsis. 5. UTI due to E. Coli. 6. Renal failure, probably related to underlying diabetes mellitus. 7. Elevated liver functions in patient with hepatitis C. The patient appears critically ill but she does appear to be improving somewhat given that she can follow some commands and has her eyes open indicating that she is awake, and also her temperature appears to be decreasing, at least from the last two measurements today. RECOMMENDATIONS 1. Change the cefepime to ceftriaxone to cover the sepsis and pneumococcal pneumonia, and provide some coverage for sinusitis. 2. Add Levaquin adjusted for renal function for gram-negative coverage for the sinusitis. 3. Continue azithromycin coverage for now, potential atypical organisms. 4. Monitor CD4 count. 5. Continue to monitor the latest blood cultures. 6. At this point I do not think it is necessary to pursue infectious work-up of altered mental status with a lumbar puncture since the patient is awake and appears to be responding somewhat, probably to antibiotic treatment. She does not appear to have opportunistic infection related to HIV disease but will need to consider such if she does not continue to improve and her CD4 count is lower than 200. 7. Monitor her clinical status. I have discussed the plan with the patient's daughter, Mae. Thank you for this consultation. Alfredo Raman MD FD/EITAN /12:52 PM /1:27 PM
[2016-06-18] MEDS ORDERED: cefTRIAXone INJ 1,000 MG in SODIUM CHLORIDE 0.9% INJ 100 ML IV SCH (15:00)
[2016-06-18] MEDS ORDERED: LORazepam 2 MG/ML VIAL IV ONE ×2 (15:15→15:45)
[2016-06-18] MEDS ORDERED: MORPHINE SULFATE 8 MG/ML INJ IV PUSH ONE (15:15)
[2016-06-18] MEDS ORDERED: ACETAMINOPHEN 650 MG SUPP PR PRN (15:45)
[2016-06-18] MEDS ORDERED: HYOSCYAMINE 0.5 MG/ML AMP IV PRN (15:45)
[2016-06-18] MEDS ORDERED: BISACODYL 10 MG SUPP PR PRN (15:45)
[2016-06-18] MEDS ORDERED: FUROSEMIDE 20 MG/2 ML VIAL IV PRN (15:45)
[2016-06-18] MEDS ORDERED: LORazepam 2 MG/ML VIAL IV PRN ×2 (15:45)
[2016-06-18] MEDS ORDERED: MORPHINE SULFATE 4 MG/ML INJ IV ONE (15:45)
[2016-06-18] MEDS ORDERED: MORPHINE SULFATE 4 MG/ML INJ IV PRN (15:45)
[2016-06-18] MEDS ORDERED: LORazepam 2 MG/ML VIAL IVS PRN (15:45)
[2016-06-18] MEDS ORDERED: MORPHINE SULFATE 8 MG/ML INJ IV PUSH PRN (15:45)
[2016-06-18] MEDS ORDERED: LORazepam 2 MG/ML VIAL IV SCH (16:00)
[2016-06-18] MEDS ORDERED: MORPHINE SULFATE 4 MG/ML INJ IV SCH (16:00)
[2016-06-18] MEDS ORDERED: LEVOFLOXACIN 250 MG PREMIX INJ 50 ML IV SCH (16:00)
--- NOTE | 2016-06-18 17:04 | HHI.HCPN ---
Reason for visit a. To assist with evaluation and management of symptoms including: dyspnea, pain. b. To assist medical decision maker(s) with: better understanding of current medical conditions; weighing benefits/burdens of medical treatment options; making medical treatment decisions. . Subjective/Interval History Patient seen and examined in ICU. Discussed with nurse and Dr. Chilel. Also present Magda Charles LCSW. Patient lying in bed with eyes open, follows a few simple commands today. Appears restless and painful when awake per nurses family and on exam today. Off sedation on CPAP becoming increasingly tachycardic with labored respirations. Tmax 102.6. Tachycardic rate 110-130s. BP stable. WBC 11.6. Creatinine increasing, now 1.4. T. Bilirubin 2.0, AST 267, ALT 58, Alk phos 310. Ammonia 51 , Albumin 1.9. Repeat urine, sputum and blood cultures negative at 1 day. No new imaging today. Liver US bilateral small pleural effusion and trace free fluid in abdomen. Chest x-ray left retrocardiac density. Infectious disease, Lamine Campuzano was consulted with recommendations for IV antibiotics. . Family/friend interactions Magda Charles LCSW and I met with 4 of patient's daughters (Mae, Marva, Daija and Daya). Medical update provided to all children. Reviewed ES heart disease (cardiomyopathy - EF 10-15%, CHF), hep C, elevated LFTs, worsening renal function, infections (pneumonia, sinusitis and UTI), respiratory failure on mech vent. All 4 daughters are in agreement that patient would not want to live like this. They are certain she would want withdrawal of life support given ongoing trajectory of decline, ES heart disease and generalized debilitated state. Daughter reports she has been in the hospital 7 times this year, twice in the past month. Children Keron and Tari were called and agree with decision. Given that Mae has been caring for the patient and assisting with medical decisions for the past few years, the family wants her to sign paperwork. 2 daughters are very emotional, though know this is the right decision for their mother. Mae is fine to sign exhibits for withdrawal of life support. 6/7 children agree. Family has been unable to reach son Esau, though report he was aware this decision was coming. . Advance Directives Living Will: Never completed Health Care Surrogate: Never completed Durable Power of Wedger [employer] Gluer: Never completed Advance Directive Specifics Health Care Surrogate(s): No written advanced directives. . Significant change in goals: NO CODE. Family has elected to proceed with withdrawal of life support this evening with transition to comfort measures.only. . Objective Vital Signs Date Time Temp Pulse Resp B/P Pulse Ox O2 Delivery O2 Flow Rate FiO2 06/18/16 12:10 94 30 06/18/16 12:00 118 06/18/16 12:00 30 06/18/16 12:00 99.0 122 14 111/72 98 06/18/16 10:00 111 06/18/16 09:36 30 06/18/16 09:30 30 06/18/16 08:12 98 30 06/18/16 08:00 99.0 122 14 111/72 98 06/18/16 08:00 110 06/18/16 08:00 30 06/18/16 06:00 124 06/18/16 04:22 98 30 06/18/16 04:00 100.4 121 14 110/74 98 06/18/16 04:00 121 06/18/16 04:00 30 06/18/16 02:00 126 06/18/16 01:02 98 30 06/18/16 00:00 30 06/18/16 00:00 100.5 126 14 116/70 98 06/18/16 00:00 126 06/17/16 22:40 95 30 06/17/16 22:00 124 06/17/16 20:00 102.6 132 14 89/68 97 06/17/16 20:00 30 06/17/16 20:00 132 06/17/16 19:47 98 30 06/17/16 18:00 116 06/17/16 16:58 98 30 Intake & Output 06/18/16 06/18/16 07:00 19:00 Intake Total 1669 ml Output Total 400 ml Balance 1269 ml Intake IV Total 939 ml Tube Feeding 410 ml Tube Irrigant 320 ml Output Urine Total 400 ml # Bowel Movements 1 Physical Exam CONSTITUTIONAL/GENERAL: This is a chronically ill-appearing female, on CPAP. TUBES/LINES/DRAINS: Peripheral IV 2 right upper extremity, 1 left upper extremity. NG tube left, ET tube, SCDs, Griggs catheter SKIN: No jaundice, rashes, or lesions. Few ecchymosis to bilateral upper extremities. No wounds seen anteriorly. Skin temperature appropriate. Not diaphoretic. ENT: Nose without bleeding or purulent drainage. Unable to visualize oropharynx due to ET tube. CARDIOVASCULAR: Tachycardic, rate 110-130s. RESPIRATORY/CHEST: Symmetric, unlabored respirations via mechanical vent. Clear to auscultation. Breath sounds equal bilaterally. GASTROINTESTINAL: Abdomen soft, and able to determine tenderness, nondistended. No hepato-splenomegaly, or palpable masses. Bowel sounds present. GENITOURINARY: Without palpable bladder distension. Griggs catheter in place. MUSCULOSKELETAL: Extremities without clubbing, cyanosis, or edema.No mottling or clubbing. NEUROLOGICAL: Opens eyes, initially seems to track examiner though does not do so consistently. Does not withdrawal to pain stimuli. Follows some simple commands. Appears restless and painful. PSYCHIATRIC: Appears restless and painful. . Diagnostic Tests Laboratory Laboratory Tests Test 06/15/16 06/16/16 06/16/16 06/17/16 20:15 04:30 19:15 04:45 Vancomycin Level Trough 15.3 MCG/ML (5.0-10.0) White Blood Count 10.2 TH/MM3 10.8 TH/MM3 (4.0-11.0) (4.0-11.0) Red Blood Count 5.23 MIL/MM3 5.07 MIL/MM3 (4.00-5.30) (4.00-5.30) Hemoglobin 14.9 GM/DL 14.2 GM/DL (11.6-15.3) (11.6-15.3) Hematocrit 45.7 % 44.8 % (35.0-46.0) (35.0-46.0) Mean Corpuscular Volume 87.3 FL 88.5 FL (80.0-100.0) (80.0-100.0) Mean Corpuscular Hemoglobin 28.4 PG 28.0 PG (27.0-34.0) (27.0-34.0) Mean Corpuscular Hemoglobin 32.5 % 31.7 % Concent (32.0-36.0) (32.0-36.0) Red Cell Distribution Width 22.9 % 23.4 % (11.6-17.2) (11.6-17.2) Platelet Count 88 TH/MM3 90 TH/MM3 (150-450) (150-450) Mean Platelet Volume 9.7 FL 10.4 FL (7.0-11.0) (7.0-11.0) Sodium Level 137 MEQ/L 142 MEQ/L (136-145) (136-145) Potassium Level 2.8 MEQ/L 4.0 MEQ/L 3.5 MEQ/L (3.5-5.1) (3.5-5.1) (3.5-5.1) Chloride Level 94 MEQ/L 101 MEQ/L (98-107) (98-107) Carbon Dioxide Level 33.3 MEQ/L 32.8 MEQ/L (21.0-32.0) (21.0-32.0) Anion Gap 10 MEQ/L (5-15) 8 MEQ/L (5-15) Blood Urea Nitrogen 35 MG/DL (7-18) 29 MG/DL (7-18) Creatinine 1.06 MG/DL 1.09 MG/DL (0.50-1.00) (0.50-1.00) Estimat Glomerular Filtration 51 ML/MIN (>89) 50 ML/MIN (>89) Rate Random Glucose 203 MG/DL 255 MG/DL (74-106) (74-106) Calcium Level 8.8 MG/DL 8.2 MG/DL (8.5-10.1) (8.5-10.1) Phosphorus Level 2.0 MG/DL 2.5 MG/DL (2.5-4.9) (2.5-4.9) Magnesium Level 1.7 MG/DL 1.8 MG/DL (1.5-2.5) (1.5-2.5) Prothrombin Time 17.4 SEC 16.4 SEC (9.8-11.6) (9.8-11.6) Prothromb Time International 1.5 RATIO 1.5 RATIO Ratio Total Bilirubin 2.5 MG/DL 2.0 MG/DL (0.2-1.0) (0.2-1.0) Direct Bilirubin 1.6 MG/DL 1.2 MG/DL (0.0-0.2) (0.0-0.2) Indirect Bilirubin 0.9 MG/DL 0.8 MG/DL (0.0-0.8) (0.0-0.8) Aspartate Amino Transf 97 U/L (15-37) 75 U/L (15-37) (AST/SGOT) Alanine Aminotransferase 37 U/L (10-53) 35 U/L (10-53) (ALT/SGPT) Alkaline Phosphatase 240 U/L 208 U/L (45-117) (45-117) Ammonia 39 MCMOL/L (11-32) Total Protein 6.9 GM/DL 6.6 GM/DL (6.4-8.2) (6.4-8.2) Albumin 1.8 GM/DL 1.8 GM/DL (3.4-5.0) (3.4-5.0) Test 06/17/16 06/17/16 06/17/16 06/17/16 10:34 14:57 16:27 17:16 Lactic Acid Level 2.4 mmol/L 1.9 mmol/L (0.4-2.0) (0.4-2.0) Blood Gas Puncture Site RT RADIAL Blood Gas Patient Temperature 98.6 Blood Gas HCO3 30 mmol/L (22-26) Blood Gas Base Excess 6.8 mmol/L (-2-2) Blood Gas Oxygen Saturation 96 % (90-100) Arterial Blood pH 7.54 (7.380-7.420) Arterial Blood Partial 35 mmHg (38-42) Pressure CO2 Arterial Blood Partial 123 mmHg Pressure O2 (61-120) Arterial Blood Oxygen Content 19.8 Vol % (12.0-20.0) Arterial Blood 1.8 % (0-4) Carboxyhemoglobin Arterial Blood Methemoglobin 1.0 % (0-2) Blood Gas Hemoglobin 14.5 G/DL (12.0-16.0) Oxygen Delivery Device VENTILATOR Blood Gas Ventilator Setting AC/16/450/PEEP5 Blood Gas Inspired Oxygen 30 % Random Cortisol 25.4 MCG/DL Test 06/18/16 06/18/16 05:05 11:45 White Blood Count 11.6 TH/MM3 (4.0-11.0) Red Blood Count 5.20 MIL/MM3 (4.00-5.30) Hemoglobin 14.4 GM/DL (11.6-15.3) Hematocrit 47.0 % (35.0-46.0) Mean Corpuscular Volume 90.3 FL (80.0-100.0) Mean Corpuscular Hemoglobin 27.7 PG (27.0-34.0) Mean Corpuscular Hemoglobin 30.6 % Concent (32.0-36.0) Red Cell Distribution Width 23.8 % (11.6-17.2) Platelet Count 138 TH/MM3 (150-450) Mean Platelet Volume 10.9 FL (7.0-11.0) Sodium Level 137 MEQ/L (136-145) Potassium Level 3.9 MEQ/L (3.5-5.1) Chloride Level 99 MEQ/L (98-107) Carbon Dioxide Level 27.3 MEQ/L (21.0-32.0) Anion Gap 11 MEQ/L (5-15) Blood Urea Nitrogen 47 MG/DL (7-18) Creatinine 1.40 MG/DL (0.50-1.00) Estimat Glomerular Filtration 37 ML/MIN (>89) Rate Random Glucose 430 MG/DL (74-106) Calcium Level 8.1 MG/DL (8.5-10.1) Phosphorus Level 3.0 MG/DL (2.5-4.9) Magnesium Level 2.1 MG/DL (1.5-2.5) Total Bilirubin 2.0 MG/DL (0.2-1.0) Aspartate Amino Transf 267 U/L (15-37) (AST/SGOT) Alanine Aminotransferase 58 U/L (10-53) (ALT/SGPT) Alkaline Phosphatase 310 U/L (45-117) Ammonia 51 MCMOL/L (11-32) Total Protein 7.3 GM/DL (6.4-8.2) Albumin 1.9 GM/DL (3.4-5.0) Blood Gas Puncture Site RT RADIAL Blood Gas Patient Temperature 98.6 Blood Gas HCO3 26 mmol/L (22-26) Blood Gas Base Excess 2.2 mmol/L (-2-2) Blood Gas Oxygen Saturation 94 % (90-100) Arterial Blood pH 7.43 (7.380-7.420) Arterial Blood Partial 41 mmHg (38-42) Pressure CO2 Arterial Blood Partial 93 mmHg Pressure O2 (61-120) Arterial Blood Oxygen Content 20.1 Vol % (12.0-20.0) Arterial Blood 1.7 % (0-4) Carboxyhemoglobin Arterial Blood Methemoglobin 1.0 % (0-2) Blood Gas Hemoglobin 15.2 G/DL (12.0-16.0) Oxygen Delivery Device VENTILATOR Blood Gas Ventilator Setting CPAP+5/PS+15 Blood Gas Inspired Oxygen 30 % Result Diagram: 06/18/16 0505 06/18/16 0505 Microbiology Microbiology Date/Time Procedure Status Source Growth 06/17/16 09:15 Gram Stain - Final Resulted Sputum Endotracheal 06/17/16 09:15 Sputum Culture - Preliminary Resulted Sputum Endotracheal HEAVY GROWTH NORMAL RESPIRATORY ROGER... 06/17/16 09:15 Urine Culture - Preliminary Resulted Urine Catheterized Urine NO GROWTH IN 24 HOURS. 06/17/16 10:23 Aerobic Blood Culture - Preliminary Resulted Blood Peripheral NO GROWTH IN 1 DAY 06/17/16 10:23 Anaerobic Blood Culture - Preliminary Resulted Blood Peripheral NO GROWTH IN 1 DAY 06/17/16 10:34 Aerobic Blood Culture - Preliminary Resulted Blood Peripheral NO GROWTH IN 1 DAY 06/17/16 10:34 Anaerobic Blood Culture - Preliminary Resulted Blood Peripheral NO GROWTH IN 1 DAY . Imaging Last Impressions Chest X-Ray 06/18/16 0600 Signed Impressions: Service Date/Time: Saturday, June 18, 2016 05:06 - CONCLUSION: 1. Minimal left retrocardiac density. 2. Endotracheal tube tip 1 cm above the julian. Herb Alanis MD Lower Extremity Ultrasound 06/18/16 0000 Signed Impressions: Service Date/Time: Saturday, June 18, 2016 12:45 - CONCLUSION: 1. Nonocclusive deep venous thrombus within the right common femoral and proximal superficial femoral veins. 2. No evidence of deep venous thrombosis within the left lower extremity. Alphonse Stockton MD Liver Ultrasound 06/18/16 0000 Signed Impressions: Service Date/Time: Saturday, June 18, 2016 12:32 - CONCLUSION: Bilateral small pleural effusions and trace free fluid identified within the abdomen. Exam is otherwise unremarkable.. Anjelica Wilson MD Head CT 06/16/16 0000 Signed Impressions: Service Date/Time: Thursday, June 16, 2016 22:09 - CONCLUSION: 1. No acute hemorrhage or mass effect. 2. Air-fluid levels in both maxillary sinuses right greater than left most consistent with acute sinusitis. Jeremiah Morton MD Abdomen/Pelvis CT 06/12/16 0000 Signed Impressions: Service Date/Time: Monday, June 13, 2016 04:47 - CONCLUSION: Generalized anasarca. Consolidation in the dependent lower lungs. Marco Patel MD . Procedures * 06/12/16 - intubated . Assessment and Plan Disease Oriented Problem List: (1) Cardiomyopathy (2) Acute respiratory failure with hypoxia (3) Pneumonia (4) CHF exacerbation (5) CHF (congestive heart failure) (6) E-coli UTI (7) Acute on chronic renal insufficiency (8) Thrombocytopenia (9) Hyperkalemia (10) Asthma (11) DM (diabetes mellitus) (12) HIV (human immunodeficiency virus infection) (13) Diabetes Symptom Scale: (1) Dyspnea 0-10 Scale: Unable to quantify (2) Encephalopathy 0-10 Scale: Unable to quantify Pertinent Non-Medical Issues Psychosocial: Single. 7 adult children. Spiritual: Family declines loop tacker support. Legal: Pt not capacitated/encephalopathic currently unable to participate, not clear if she will regain ability to participate. per [place] statutes legal decision making would fall to majority of adult children. She has 2 (?) adult children. Ethical issues impacting care: No known concerns at this time. . Important Contacts Daughter Marva Berrios [phone] . Prognosis This patient was admitted for shortness of breath, with known history of CHF, with acute on chronic renal insufficiency. EF 1015%. Even with ongoing aggressive interventions given severity of cardiomyopathy patient prognosis is poor. She remains very high risk for clinical deterioration, and complications related to underlying cardiac disease. Limited life expectancy. Appropriate for hospice if goals are compatible. . Code Status: No Code Plan * Legal decision maker: pt not capacitated/encephalopathic currently unable to participate, not clear if she will regain ability to participate. According to [place] statutes legal decision making would fall to majority of adult children. She has 7 adult children. I have personally spoke with 4 children who wish to participate in health care decisions: (Marva Wall (in consult room) & Daya Choe (via telephone). Keron and Tari have agreed with plan of care, defer decisions to siblings here as they are unable to come to [place]. Family will attempt to reach Afton and have him call palliative care. * Goals: Magda Charles LCSW and I met with 4 of patient's daughters (Mae, Marva, Daija and Daya). Medical update provided to all children. Reviewed ES heart disease (cardiomyopathy - EF 10-15%, CHF), hep C, HIV, elevated LFTs, worsening renal function, infections (pneumonia, sinusitis and UTI), respiratory failure on mech vent. All 4 daughters are in agreement that patient would not want to live like this. They are certain she would want withdrawal of life support and comfort focused care given ongoing trajectory of decline, ES heart disease and generalized debilitated state. Daughter reports she has been in the hospital 7 times this year, twice in the past month. Children Keron and Tari were called and agree with decision. Given that Mae has been caring for the patient and assisting with medical decisions for the past few years, the family wants her to sign paperwork. 2 daughters are very emotional, though know this is the right decision for their mother. Mae is fine to sign exhibits for withdrawal of life support. 6/7 children agree. Family has been unable to reach son Esau, though family reports he was aware this decision was coming. * Left message for Dr. Raman to notify in family desire for comfort measures now. * NO CODE * Deactivated defibrillator 06/17/16. * Exhibits B & C signed by Dr. Chilel and Dr. Cortez. * Declines loop tacker and hospice support at this time. * Reviewed orders with nursing staff. * SYMPTOMS: Orders written by Dr. Cortez for comfort measures and withdrawal of life support. -- dyspnea: Emergently intubated 06/12; remains on mechanical vent not tolerating CPAP trials. History of asthma, CHF EF 1015%. -- Encephalopathy: Emergently intubated for respiratory failure,+ acute on chronic renal failure; ? Metabolic encephalopathy, remaining minimally responsive even off of sedation - Pain: sources may include intubation, infection, tubes and lines. - Restlessness and agitation: appears restless during visit. * Palliative care will continue to follow during hospital course as condition evolves, to assist patient/decision-maker with understanding of medical conditions, weighing benefits/burdens of treatment options, for clarification of goals of treatment. Additionally will assist with any symptoms of palliative concern. . Attestation To help prompt me to consider important information that might be impacting today's encounter and assessment, information from prior notes written by myself or my colleagues may have been "brought forward" into today's note. My signature on this note, however, is an attestation that I personally performed the exam, history, and/or decision-making noted today, and, unless otherwise indicated, the interactions with patient, family, and staff as well as the review of records all occurred today. I also attest that the listed assessment and stated plan reflect my best clinical judgment today based on the combination of historical information, prior notes, and today's exam/ interactions. When time spent is documented, it refers only to time spent today by the signer, or if indicated, combined time spent today by collaborating physician/nurse practitioner. DHRUV FORREST Jun 18, 2016 17:04
[2016-06-19 07:53] LABS: CD4/CD8 RATIO 0.6 (0.86-5.00)
[2016-06-20 03:52] LABS: KAPPA/LAMBDA FREE 0.85 (0.26-1.65)
[2016-06-20 15:53] LABS: CRYOCRIT NONE DETECTED (NONE DETECTED)
--- NOTE | 2016-07-02 12:22 | HHI.DS ---
Discharge Summary Admission Date Jun 12, 2016 at 19:47 Admitting Diagnosis CHF Exacerbation, ARF, Metabolic Acidosis, Hyperkalemia Brief History 71-year-old female with a history of hypertension, hyperlipidemia, diabetes, asthma, CHF, pacemaker with AICD, HIV, presented to the ED with progressive SOB. The patient is [place]i-speaking only and daughter is in the room for interpretation. The patient complained of a productive cough for approximately 1 week. The patient complained of chest tightness in conjunction with her shortness of breath. Note the patient was recently hospitalized 05/11/16, for similar presentation of CHF exacerbation, and abdominal pain. At that time the patient had an echo performed which revealed an ejection fraction of 15%. The patient had complained of loose yellow stools, and abdominal pain. Critical care medicine was consulted for treatment and management. Upon entering the ED, the patient was noted to be severely dyspneic, currently on 4 L nasal cannula, the patient was changed to a facemask at 10 L/m, the patient continued to have O2 desaturation, O2 sats in the 80s. I discussed with the patient impending need of required intubation, for acute respiratory distress. The patient stated she wanted to be intubated. I discussed with the daughter the risk and benefits ,the patient's respiratory status and the need for intubation. The patient was emergently intubated in the ED without difficulty. The patient was then placed on mechanical ventilation at 100% and then subsequently weaned to FiO2 of 50%. History PFSH Past Medical History Asthma: Yes Autoimmune Disease: Yes (HIV) Blood Disorders: No Anxiety: No Depression: No Heart Rhythm Problems: No Cancer: No Cardiovascular Problems: Yes (HTN/SC) High Cholesterol: Yes Chemotherapy: No Chest Pain: No Congestive Heart Failure: Yes COPD: No Diabetes: Yes Diminished Hearing: No Deep Vein Thrombosis: Yes Endocrine: No Genitourinary: No Hypertension: Yes Immune Disorder: No Musculoskeletal: No Neurologic: No Psychiatric: No Reproductive: No Respiratory: Yes (ASTHMA) Radiation Therapy: No Sleep Apnea: No Thyroid Disease: No Menopausal: Yes Past Surgical History AICD: Yes Cardiac Surgery: Yes (PACEMAKER/AICD PLACEMENT) Cholecystectomy: Yes Eye Surgery: Yes Pacemaker: Yes Other Surgery: Yes (pacemaker with ICD) Social History Alcohol Use: No Tobacco Use: No Substance Use: No Allergies-Medications Allergies-Medications (Allergen,Severity, Reaction): Coded Allergies: No Known Allergies (Unverified , 06/12/16) Reported Meds & Prescriptions Reported Meds & Active Scripts Active Tessalon Perles (Benzonatate) 100 Mg Cap 100 Mg PO TID PRN Lomotil (Diphenoxylate-Atropine) 2.5-0.025 Mg Tab 1 Tab PO Q6H PRN Reported Xarelto (Rivaroxaban) 20 Mg Tab 20 Mg PO DAILY Edurant (Rilpivirine) 25 Mg Tab 25 Mg PO DAILY Toprol XL (Metoprolol Succinate) 50 Mg Tab 50 Mg PO DAILY Lisinopril 20 Mg Tab 20 Mg PO DAILY Epivir (Lamivudine) 150 Mg Tab 150 Mg PO DAILY *Fill this 5 day prescription first and begin taking Epivir 12 hours after the first dose received in the Emergency Department as prescribed.* Lantus Inj (Insulin Glargine) 1,000 Unit/10 Ml Vial 25 Units SQ HS Lasix (Furosemide) 40 Mg Tab 40 Mg PO DAILY Tivicay (Dolutegravir Sodium) 50 Mg Tab 50 Mg PO DAILY Plavix (Clopidogrel Bisulfate) 75 Mg Tab 75 Mg PO DAILY Lipitor (Atorvastatin Calcium) 80 Mg Tab 80 Mg PO HS Proventil Hfa 6.7 GM Inh (Albuterol Sulfate) 90 Mcg/Act Aer 2 Puff INH Q6H PRN ROS Review of Systems Except as stated in HPI: all other systems reviewed are Neg Hospital Course Hospital Course: 71-year-old female with a history of hypertension, hyperlipidemia, diabetes, asthma, CHF, pacemaker with AICD, HIV, presented to the ED with progressive SOB. The patient is [place]i-speaking only and daughter is in the room for interpretation. The patient complained of a productive cough for approximately 1 week. The patient complained of chest tightness in conjunction with her shortness of breath. Note the patient was recently hospitalized 05/11/16, for similar presentation of CHF exacerbation, and abdominal pain. At that time the patient had an echo performed which revealed an ejection fraction of 15%. The patient had complained of loose yellow stools, and abdominal pain. Critical care medicine was consulted for treatment and management. Upon entering the ED, the patient was noted to be severely dyspneic, currently on 4 L nasal cannula, the patient was changed to a facemask at 10 L/m, the patient continued to have O2 desaturation, O2 sats in the 80s. I discussed with the patient impending need of required intubation, for acute respiratory distress. The patient stated she wanted to be intubated. I discussed with the daughter the risk and benefits ,the patient's respiratory status and the need for intubation. The patient was emergently intubated in the ED without difficulty. The patient was then placed on mechanical ventilation at 100% and then subsequently weaned to FiO2 of 50%. Subjective: 06/14: given 2 doses of lasix 100mg iv yesterday for volume overloaded. echo ordered and pending. pneumococcal urinary antigen +, blood growing G+, urine growing G- rods. speciation pending. still intubated. awake this AM, but apneic on SBT. not on pathway. 06/15: 2 more doses of lasix 100mg yesterday with subsequent diuresis. cr improving. more awake today. still failed SBT for tachypnea and distress. not on pathway. 06/16: Patient has decreased responsiveness. Off sedation medications, Precedex and fentanyl for approximately 10 hours. Patient failed CPAP trials today. 06/17: Tmax 101.5. Patient currently on cefepime and azithromycin added to antibiotic regimen. Patient continues to have decreased responsiveness, CT brain obtained, unremarkable, ammonia level 39. Lactulose added to medication regimen. Palliative medicine was consulted, discussion with family, she was made DNR status today. 06/18: Tmax 103.0. Antibiotics were changed, steroids added to medication regimen yesterday. Concern for altered mental status and chronic sinusitis, with indeterminate immunocompetent status, ID consulted appreciate recommendations.The patient mentation slightly improved, awake, patient is [place]i-speaking only following commands given by daughters. Patient's INR, 1.5 , no intracranial bleed per CT, will resume Xarelto and Plavix today. Overnight patient was hyperglycemic, patient converted to Levemir BID.Ammonia level increased despite institution of Lactulose BID, will increase frequency. Liver US pending today. 06/18: The palliative care team meeting this afternoon, decision made by family for comfort care measures only, with ventilator withdrawal this afternoon. Pt Condition on Discharge: Deteriorating Flor Chilel MD Jul 02, 2016 12:22
--- NOTE | 2016-07-26 17:38 | HHI.DS ---
Summary Note Date of : Jun 18, 2016 Time Of : 1811 Admission Date Jun 12, 2016 at 19:47 Admitting Diagnosis CHF Exacerbation, ARF, Metabolic Acidosis, Hyperkalemia Diagnosis at Time of : Brief History 71-year-old female with a history of hypertension, hyperlipidemia, diabetes, asthma, CHF, pacemaker with AICD, HIV, presented to the ED with progressive SOB. The patient is [place]an-speaking only and daughter is in the room for interpretation. The patient complained of a productive cough for approximately 1 week. The patient complained of chest tightness in conjunction with her shortness of breath. Note the patient was recently hospitalized 05/11/16, for similar presentation of CHF exacerbation, and abdominal pain. At that time the patient had an echo performed which revealed an ejection fraction of 15%. The patient had complained of loose yellow stools, and abdominal pain. Critical care medicine was consulted for treatment and management. Upon entering the ED, the patient was noted to be severely dyspneic, currently on 4 L nasal cannula, the patient was changed to a facemask at 10 L/m, the patient continued to have O2 desaturation, O2 sats in the 80s. I discussed with the patient impending need of required intubation, for acute respiratory distress. The patient stated she wanted to be intubated. I discussed with the daughter the risk and benefits ,the patient's respiratory status and the need for intubation. The patient was emergently intubated in the ED without difficulty. The patient was then placed on mechanical ventilation at 100% and then subsequently weaned to FiO2 of 50%. History PFSH Past Medical History Asthma: Yes Autoimmune Disease: Yes (HIV) Blood Disorders: No Anxiety: No Depression: No Heart Rhythm Problems: No Cancer: No Cardiovascular Problems: Yes (HTN/DC) High Cholesterol: Yes Chemotherapy: No Chest Pain: No Congestive Heart Failure: Yes COPD: No Diabetes: Yes Diminished Hearing: No Deep Vein Thrombosis: Yes Endocrine: No Genitourinary: No Hypertension: Yes Immune Disorder: No Musculoskeletal: No Neurologic: No Psychiatric: No Reproductive: No Respiratory: Yes (ASTHMA) Radiation Therapy: No Sleep Apnea: No Thyroid Disease: No Menopausal: Yes Past Surgical History AICD: Yes Cardiac Surgery: Yes (PACEMAKER/AICD PLACEMENT) Cholecystectomy: Yes Eye Surgery: Yes Pacemaker: Yes Other Surgery: Yes (pacemaker with ICD) Social History Alcohol Use: No Tobacco Use: No Substance Use: No Allergies-Medications Allergies-Medications (Allergen,Severity, Reaction): Coded Allergies: No Known Allergies (Unverified , 06/12/16) Reported Meds & Prescriptions Reported Meds & Active Scripts Active Tessalon Perles (Benzonatate) 100 Mg Cap 100 Mg PO TID PRN Lomotil (Diphenoxylate-Atropine) 2.5-0.025 Mg Tab 1 Tab PO Q6H PRN Reported Xarelto (Rivaroxaban) 20 Mg Tab 20 Mg PO DAILY Edurant (Rilpivirine) 25 Mg Tab 25 Mg PO DAILY Toprol XL (Metoprolol Succinate) 50 Mg Tab 50 Mg PO DAILY Lisinopril 20 Mg Tab 20 Mg PO DAILY Epivir (Lamivudine) 150 Mg Tab 150 Mg PO DAILY *Fill this 5 day prescription first and begin taking Epivir 12 hours after the first dose received in the Emergency Department as prescribed.* Lantus Inj (Insulin Glargine) 1,000 Unit/10 Ml Vial 25 Units SQ HS Lasix (Furosemide) 40 Mg Tab 40 Mg PO DAILY Tivicay (Dolutegravir Sodium) 50 Mg Tab 50 Mg PO DAILY Plavix (Clopidogrel Bisulfate) 75 Mg Tab 75 Mg PO DAILY Lipitor (Atorvastatin Calcium) 80 Mg Tab 80 Mg PO HS Proventil Hfa 6.7 GM Inh (Albuterol Sulfate) 90 Mcg/Act Aer 2 Puff INH Q6H PRN ROS Review of Systems Except as stated in HPI: all other systems reviewed are Neg Imaging Last 24 hours Impressions Chest X-Ray 06/18/16 0600 Signed Impressions: Service Date/Time: Saturday, June 18, 2016 05:06 - CONCLUSION: 1. Minimal left retrocardiac density. 2. Endotracheal tube tip 1 cm above the julian. Herb Alanis MD Hospital Course 71-year-old female with a history of hypertension, hyperlipidemia, diabetes, asthma, CHF, pacemaker with AICD, HIV, presented to the ED with progressive SOB. The patient is [place]an-speaking only and daughter is in the room for interpretation. The patient complained of a productive cough for approximately 1 week. The patient complained of chest tightness in conjunction with her shortness of breath. Note the patient was recently hospitalized 05/11/16, for similar presentation of CHF exacerbation, and abdominal pain. At that time the patient had an echo performed which revealed an ejection fraction of 15%. The patient had complained of loose yellow stools, and abdominal pain. Critical care medicine was consulted for treatment and management. Upon entering the ED, the patient was noted to be severely dyspneic, currently on 4 L nasal cannula, the patient was changed to a facemask at 10 L/m, the patient continued to have O2 desaturation, O2 sats in the 80s. I discussed with the patient impending need of required intubation, for acute respiratory distress. The patient stated she wanted to be intubated. I discussed with the daughter the risk and benefits ,the patient's respiratory status and the need for intubation. The patient was emergently intubated in the ED without difficulty. The patient was then placed on mechanical ventilation at 100% and then subsequently weaned to FiO2 of 50%. Subjective: 06/14: given 2 doses of lasix 100mg iv yesterday for volume overloaded. echo ordered and pending. pneumococcal urinary antigen +, blood growing G+, urine growing G- rods. speciation pending. still intubated. awake this AM, but apneic on SBT. not on pathway. 06/15: 2 more doses of lasix 100mg yesterday with subsequent diuresis. cr improving. more awake today. still failed SBT for tachypnea and distress. not on pathway. 06/16: Patient has decreased responsiveness. Off sedation medications, Precedex and fentanyl for approximately 10 hours. Patient failed CPAP trials today. 06/17: Tmax 101.5. Patient currently on cefepime and azithromycin added to antibiotic regimen. Patient continues to have decreased responsiveness, CT brain obtained, unremarkable, ammonia level 39. Lactulose added to medication regimen. Palliative medicine was consulted, discussion with family, she was made DNR status today. Comfort measures/withdrawal instituted. Patient 1811. Flor Chilel MD Jul 26, 2016 17:38
== END 2016-06-18 18:12 | disposition expired | DRG 974 ==
LOC: NEPC 17:29 → NEDA 19:47 → HIMN 06-13 00:20
PROVIDERS: ADMIT Anesthesiology; ATTEND Anesthesiology
PROC: 0T9B70Z Drainage of Bladder with Drainage Device, Via Natural or Artificial Opening (ICD-10-PCS; principal; 2016-06-12)
PROC: 5A1955Z Respiratory Ventilation, Greater than 96 Consecutive Hours (ICD-10-PCS; 2016-06-12)
PROC: 0BH18EZ Insertion of Endotracheal Airway into Trachea, Via Natural or Artificial Opening Endoscopic (ICD-10-PCS; 2016-06-12)
DX: B20 Human immunodeficiency virus [HIV] disease (principal); A41.9 Sepsis, unspecified organism; J96.01 Acute respiratory failure with hypoxia; G92 Toxic encephalopathy; E43 Unspecified severe protein-calorie malnutrition; N17.9 Acute kidney failure, unspecified; J13 Pneumonia due to Streptococcus pneumoniae; E87.2 Acidosis; N39.0 Urinary tract infection, site not specified; E87.1 Hypo-osmolality and hyponatremia; I42.9 Cardiomyopathy, unspecified; I50.9 Heart failure, unspecified; D69.6 Thrombocytopenia, unspecified; E11.21 Type 2 diabetes mellitus with diabetic nephropathy; I13.10 Hypertensive heart and chronic kidney disease without heart failure, with stage 1 through stage 4 chronic kidney disease, or unspecified chronic kidney disease; E87.5 Hyperkalemia; J45.909 Unspecified asthma, uncomplicated; E78.00 Pure hypercholesterolemia, unspecified; N18.9 Chronic kidney disease, unspecified; Z95.810 Presence of automatic (implantable) cardiac defibrillator; E11.22 Type 2 diabetes mellitus with diabetic chronic kidney disease; E11.319 Type 2 diabetes mellitus with unspecified diabetic retinopathy without macular edema; E11.40 Type 2 diabetes mellitus with diabetic neuropathy, unspecified; E11.65 Type 2 diabetes mellitus with hyperglycemia; E78.5 Hyperlipidemia, unspecified; Z51.5 Encounter for palliative care; K52.9 Noninfective gastroenteritis and colitis, unspecified; B96.20 Unspecified Escherichia coli [E. coli] as the cause of diseases classified elsewhere; I25.2 Old myocardial infarction; B19.20 Unspecified viral hepatitis C without hepatic coma; J32.9 Chronic sinusitis, unspecified; J20.9 Acute bronchitis, unspecified; Z95.5 Presence of coronary angioplasty implant and graft; I25.10 Atherosclerotic heart disease of native coronary artery without angina pectoris; Z66 Do not resuscitate; F41.9 Anxiety disorder, unspecified; I08.1 Rheumatic disorders of both mitral and tricuspid valves; Z86.718 Personal history of other venous thrombosis and embolism
CPT/HCPCS: 31500; 36600; 70450; 71010; 74176; 76705; 80048; 80053; 80061; 80076; 80202; 81001; 82140; 82150; 82533; 82595; 82805; 82948; 83605; 83690; 83735; 83880; 83883; 84100; 84132; 84157; 84165; 84484; 85025; 85027; 85610; 85730; 86038; 86039; 86160; 86335; 86355; 86357; 86359; 86360; 86803; 87040; 87070; 87077; 87086; 87186; 87205; 87340; 87449; 87641; 87804; 93005; 93306; 93970; 94002; 94003; 94640; 94664; 96365; 96375; C9113; C9399; J0456; J0610; J0692; J1644; J1815; J1940; J1956; J2060; J2250; J2270; J2920; J2930; J3010; J3370; J3475; J3480; J7050; J7120; Q9963